=== PATIENT | male | born 1960 | race Caucasian/White ===

== ENCOUNTER 2018-05-21 09:20 | Day surgery (SDC) | payer BC ==
[2018-05-17 13:18] VITALS: BMI 29.8
[2018-05-21 09:56] VITALS: RESP 16; TEMP 97.9
[2018-05-21] MEDS ORDERED: LIDOCAINE 1% 20 ML VIAL (10MG/ML) FOR IV START INTRADERMA ONE (10:02)
[2018-05-21] MEDS ORDERED: LACTATED RINGERS 1,000 ML IV ONE (10:02)
[2018-05-21] MEDS ORDERED: PROPOFOL 10 MG/ML 20 ML VIAL IV ONE (10:44)
--- NOTE | 2018-05-21 11:12 | P.PCN ---
Date of Procedure: 05/21/18 Procedure(s) Performed: procedure: Total colonoscopy. Preoperative diagnosis: Screening for neoplasia, patient has history of polyps. Postoperative diagnosis: Exam within normal limits. Preparation: HalfLytely prep. Sedation: Was provided by anesthesia. Brief clinical history: The patient is a 57-year-old male who is scheduled for this evaluation for screening for neoplasia because of history of polyps. His last exam was in 2012. The patient has no abdominal complaints, bleeding or anemia. Procedure: With the patient on his left lateral decubitus position and after informed consent and adequate sedation, the perianal area was inspected and it did not show any fissures or fistulas. There were no masses felt on digital rectal examination. The Olympus CFQ 160L video colonoscope was used and was inserted in the rectum and advanced in the usual fashion without difficulty to the cecum. The mucosa appeared healthy. No polyps or tumors were seen or any obvious diverticular disease or other pathology. I retroflexed the endoscope in the rectum before the endoscope was withdrawn. The patient tolerated the procedure well. Plan: The patient was reassured. He will follow up with you as planned and I recommended repeat exam in 5 years.
[2018-05-21 11:32] VITALS: BP 116/79; PULSE 71
== END 2018-05-21 11:49 | disposition home or self-care (01) ==
LOC: ORWHC2ENDO 09:20
DX: Z12.11 Encounter for screening for malignant neoplasm of colon (principal); Z86.010 Personal history of colon polyps; K21.9 Gastro-esophageal reflux disease without esophagitis; I10 Essential (primary) hypertension; E78.5 Hyperlipidemia, unspecified; G47.33 Obstructive sleep apnea (adult) (pediatric); F41.9 Anxiety disorder, unspecified; F32.9 Major depressive disorder, single episode, unspecified; Z79.82 Long term (current) use of aspirin; Z79.899 Other long term (current) drug therapy
CPT/HCPCS: J2704; G0105; 45378

== ENCOUNTER 2019-07-19 13:52 | Observation (INO) | payer BC, OTHER ==
[2019-07-19] MEDS ORDERED: SODIUM CHLORIDE 0.9% 500 ML 500 ML IV STA (14:18)
[2019-07-19] MEDS ORDERED: SODIUM CHLORIDE 0.9% 1,000 ML IV STA (14:45)
--- NOTE | 2019-07-19 14:45 | ED ---
General Adult HPI - General Chief complaint: Dizziness Stated complaint: Light headed/Dizziness Time Seen by Provider: 07/19/19 14:10 Source: patient, RN notes reviewed Mode of arrival: wheelchair Limitations: no limitations - History of Present Illness Initial comments: 58-year-old male with a past medical history of GERD, hyperlipidemia, hypertension presents to the emergency department for a chief complaint of lightheadedness. Patient states that he has not felt well for the past 2-3 days. Patient states that he has felt lightheaded and "off." Patient states that he has had a very mild cough and sore throat but his throat is only sore in the morning. He does admit to congestion. Patient states that yesterday he had an episode of acid reflux starting at about 11 PM and lasting for several hours. He describes this as a burning pain in his chest with nausea. States he did vomit once with this. He denies any radiating chest pain. Patient states that this morning he was short of breath which is not normal for him. States he had to stop Every 30 feet or so to catch his breath when he was walking his dog. Patient has no other complaints at this time including chest pain, abdominal pain, nausea or vomiting, headache, or visual changes. - Related Data Home Medications Medication Instructions Recorded Confirmed Sertraline HCl [Zoloft] 200 mg PO DAILY 05/17/18 07/19/19 Atorvastatin [Lipitor] 20 mg PO HS 07/19/19 07/19/19 LORazepam [Ativan] 0.5 mg PO BID PRN 07/19/19 07/19/19 Lisinopril 30 mg PO DAILY 07/19/19 07/19/19 Allergies Allergy/AdvReac Type Severity Reaction Status Date / Time No Known Allergies Allergy Verified 07/19/19 17:40 Review of Systems ROS Statement: Those systems with pertinent positive or pertinent negative responses have been documented in the HPI. ROS Other: All systems not noted in ROS Statement are negative. Past Medical History Past Medical History: GERD/Reflux, Hyperlipidemia, Hypertension, Sleep Apnea/CPAP/BIPAP Additional Past Medical History / Comment(s): no cpap used, History of Any Multi-Drug Resistant Organisms: None Reported Past Surgical History: Hernia Repair Additional Past Surgical History / Comment(s): biopsy on lump on neck, Past Anesthesia/Blood Transfusion Reactions: Motion Sickness Past Psychological History: Anxiety Smoking Status: Never smoker Past Alcohol Use History: Daily Past Drug Use History: None Reported - Past Family History Mother Family Medical History: Cancer General Exam Limitations: no limitations General appearance: alert, in no apparent distress Head exam: Present: atraumatic, normocephalic, normal inspection Eye exam: Present: normal appearance, PERRL, EOMI. Absent: scleral icterus, conjunctival injection, periorbital swelling ENT exam: Present: normal exam, mucous membranes moist Neck exam: Present: normal inspection, full ROM. Absent: tenderness, meningismus, lymphadenopathy Respiratory exam: Present: normal lung sounds bilaterally. Absent: respiratory distress, wheezes, rales, rhonchi, stridor Cardiovascular Exam: Present: regular rate, normal rhythm, normal heart sounds. Absent: systolic murmur, diastolic murmur, rubs, gallop, clicks GI/Abdominal exam: Present: soft, normal bowel sounds. Absent: distended, tenderness, guarding, rebound, rigid Neurological exam: Present: alert Course Vital Signs 07/19/19 07/19/19 07/19/19 14:00 14:28 16:26 Temperature 98.6 F Pulse Rate 112 H 78 Pulse Rate [ 114 H Sitting] Pulse Rate [ 124 H Standing] Pulse Rate [ 102 H Supine] Respiratory 20 16 Rate Blood Pressure 132/77 140/82 Blood Pressure 92/67 [Sitting] Blood Pressure 70/36 [Standing] Blood Pressure 114/74 [Supine] O2 Sat by Pulse 97 98 Oximetry 07/19/19 07/19/19 07/19/19 17:00 18:00 18:34 Temperature Pulse Rate 99 111 H 107 H Pulse Rate [ Sitting] Pulse Rate [ Standing] Pulse Rate [ Supine] Respiratory 16 20 18 Rate Blood Pressure 123/89 133/90 Blood Pressure [Sitting] Blood Pressure [Standing] Blood Pressure [Supine] O2 Sat by Pulse 96 96 Oximetry 07/19/19 22:15 Temperature Pulse Rate 112 H Pulse Rate [ Sitting] Pulse Rate [ Standing] Pulse Rate [ Supine] Respiratory 18 Rate Blood Pressure 123/82 Blood Pressure [Sitting] Blood Pressure [Standing] Blood Pressure [Supine] O2 Sat by Pulse 97 Oximetry - Reevaluation(s) Reevaluation #1: 07/19/19 15:43 D-dimer is elevated. I did speak with CT about creatinine and GFR who said they could do the scan with a decreased dose of contrast. Pt hydrated before and after. EKG Findings - EKG Comments: EKG Findings:: Normal sinus rhythm, ventricular rate 85, NV interval 170, QTC 428, reviewed by Dr Montilla Medical Decision Making - Medical Decision Making 58-year-old male the past medical history of GERD, hyperlipidemia, hypertension presents to the emergency department for a chief lightheadedness third patient has felt lightheaded for several days. Patient has been short of breath for the past day. He did have some GERD-like symptoms yesterday, no other evidence of chest pain. Vitals do show positive orthostatics. CBC unremarkable. CMP does show evidence of dehydration with a creatinine of 1.67. Anion gap of 21 likely secondary to starvation ketosis. Given shortness of breath d-dimer was ordered which was positive. CT demonstrated no evident pulmonary embolism however the root of the aorta is aneurysmal at 4.4 cm proximal descending aorta measures 2.6 cm. Patient noted to be tremoring after some time here in the emergency department. Likely experiencing DTs as he is a daily alcoholic although only reports 3 glasses of wine per day. Patient was given Ativan. Patient will be admitted for possible alcoholic withdrawal, orthostatic hypotension, shortness of breath. Dr. Villarreal accepted this admission. - Lab Data Result diagrams: 07/19/19 14:26 07/19/19 14:26 Lab Results 07/19/19 07/19/19 07/19/19 Range/Units 14:00 14:00 14:00 WBC (3.8-10.6) k/uL RBC (4.30-5.90) m/uL Hgb (13.0-17.5) gm/dL Hct (39.0-53.0) % MCV (80.0-100.0) fL MCH (25.0-35.0) pg MCHC (31.0-37.0) g/dL RDW (11.5-15.5) % Plt Count (150-450) k/uL Neutrophils % % Lymphocytes % % Monocytes % % Eosinophils % % Basophils % % Neutrophils # (1.3-7.7) k/uL Lymphocytes # (1.0-4.8) k/uL Monocytes # (0-1.0) k/uL Eosinophils # (0-0.7) k/uL Basophils # (0-0.2) k/uL PT 9.6 (9.0-12.0) sec INR 0.9 (<1.2) APTT 22.5 (22.0-30.0) sec D-Dimer 2.59 H (<0.60) mg/L FEU Sodium (137-145) mmol/L Potassium (3.5-5.1) mmol/L Chloride (98-107) mmol/L Carbon Dioxide (22-30) mmol/L Anion Gap mmol/L BUN (9-20) mg/dL Creatinine (0.66-1.25) mg/dL Est GFR (CKD-EPI)AfAm (>60 ml/min/1.73 sqM) Est GFR (CKD-EPI)NonAf (>60 ml/min/1.73 sqM) Glucose (74-99) mg/dL Calcium (8.4-10.2) mg/dL Magnesium (1.6-2.3) mg/dL Total Bilirubin (0.2-1.3) mg/dL AST (17-59) U/L ALT (4-49) U/L Alkaline Phosphatase (38-126) U/L Creatine Kinase (55-170) U/L CK-MB (CK-2) (0.0-2.4) ng/mL Troponin I 0.019 (0.000-0.034) ng/mL NT-Pro-B Natriuret Pep 46 pg/mL Total Protein (6.3-8.2) g/dL Albumin (3.5-5.0) g/dL Amylase (30-110) U/L Lipase (23-300) U/L 07/19/19 07/19/19 07/19/19 Range/Units 14:00 14:00 14:26 WBC (3.8-10.6) k/uL RBC (4.30-5.90) m/uL Hgb (13.0-17.5) gm/dL Hct (39.0-53.0) % MCV (80.0-100.0) fL MCH (25.0-35.0) pg MCHC (31.0-37.0) g/dL RDW (11.5-15.5) % Plt Count (150-450) k/uL Neutrophils % % Lymphocytes % % Monocytes % % Eosinophils % % Basophils % % Neutrophils # (1.3-7.7) k/uL Lymphocytes # (1.0-4.8) k/uL Monocytes # (0-1.0) k/uL Eosinophils # (0-0.7) k/uL Basophils # (0-0.2) k/uL PT (9.0-12.0) sec INR (<1.2) APTT (22.0-30.0) sec D-Dimer (<0.60) mg/L FEU Sodium 133 L (137-145) mmol/L Potassium 4.5 (3.5-5.1) mmol/L Chloride 93 L (98-107) mmol/L Carbon Dioxide 19 L (22-30) mmol/L Anion Gap 21 mmol/L BUN 26 H (9-20) mg/dL Creatinine 1.67 H (0.66-1.25) mg/dL Est GFR (CKD-EPI)AfAm 52 (>60 ml/min/1.73 sqM) Est GFR (CKD-EPI)NonAf 45 (>60 ml/min/1.73 sqM) Glucose 88 (74-99) mg/dL Calcium 9.8 (8.4-10.2) mg/dL Magnesium 1.7 (1.6-2.3) mg/dL Total Bilirubin 0.7 (0.2-1.3) mg/dL AST 154 H (17-59) U/L ALT 133 H (4-49) U/L Alkaline Phosphatase 76 (38-126) U/L Creatine Kinase 169 (55-170) U/L CK-MB (CK-2) 1.4 (0.0-2.4) ng/mL Troponin I (0.000-0.034) ng/mL NT-Pro-B Natriuret Pep pg/mL Total Protein 8.3 H (6.3-8.2) g/dL Albumin 5.5 H (3.5-5.0) g/dL Amylase 62 (30-110) U/L Lipase 211 (23-300) U/L // Range/Units 14:26 WBC 7.4 (3.8-10.6) k/uL RBC 4.07 L (4.30-5.90) m/uL Hgb 13.1 (13.0-17.5) gm/dL Hct 38.1 L (39.0-53.0) % MCV 93.6 (80.0-100.0) fL MCH 32.2 (25.0-35.0) pg MCHC 34.3 (31.0-37.0) g/dL RDW 13.0 (11.5-15.5) % Plt Count 268 (150-450) k/uL Neutrophils % 80 % Lymphocytes % 11 % Monocytes % 5 % Eosinophils % 1 % Basophils % 0 % Neutrophils # 5.9 (1.3-7.7) k/uL Lymphocytes # 0.8 L (1.0-4.8) k/uL Monocytes # 0.4 (0-1.0) k/uL Eosinophils # 0.1 (0-0.7) k/uL Basophils # 0.0 (0-0.2) k/uL PT (9.0-12.0) sec INR (<1.2) APTT (22.0-30.0) sec D-Dimer (<0.60) mg/L FEU Sodium (137-145) mmol/L Potassium (3.5-5.1) mmol/L Chloride (98-107) mmol/L Carbon Dioxide (22-30) mmol/L Anion Gap mmol/L BUN (9-20) mg/dL Creatinine (0.66-1.25) mg/dL Est GFR (CKD-EPI)AfAm (>60 ml/min/1.73 sqM) Est GFR (CKD-EPI)NonAf (>60 ml/min/1.73 sqM) Glucose (74-99) mg/dL Calcium (8.4-10.2) mg/dL Magnesium (1.6-2.3) mg/dL Total Bilirubin (0.2-1.3) mg/dL AST (17-59) U/L ALT (4-49) U/L Alkaline Phosphatase (38-126) U/L Creatine Kinase (55-170) U/L CK-MB (CK-2) (0.0-2.4) ng/mL Troponin I (0.000-0.034) ng/mL NT-Pro-B Natriuret Pep pg/mL Total Protein (6.3-8.2) g/dL Albumin (3.5-5.0) g/dL Amylase (30-110) U/L Lipase (23-300) U/L Disposition Clinical Impression: Orthostatic hypotension, Dehydration, Alcohol withdrawal Disposition: ADMITTED IP TO THIS HOSP Condition: Fair Is patient prescribed a controlled substance at d/c from ED?: No Time of Disposition: 23:09
[2019-07-19 14:54] LABS: Basophils % (A) 0 %; Eosinophils # (A) 0.1 k/uL (0-0.7); Eosinophils % (A) 1 %; HCT 38.1 % (39.0-53.0); HGB 13.1 gm/dL (13.0-17.5); Lymphocytes # (A) 0.8 k/uL (1.0-4.8); Lymphocytes % (A) 11 %; MCH 32.2 pg (25.0-35.0); MCHC 34.3 g/dL (31.0-37.0); MCV 93.6 fL (80.0-100.0); Mean Platelet Volume 7.2; Monocytes # (A) 0.4 k/uL (0-1.0); Monocytes % (A) 5 %; Neutrophils # (A) 5.9 k/uL (1.3-7.7); Neutrophils % (A) 80 %; Platelet Count 268 k/uL (150-450); RBC 4.07 m/uL (4.30-5.90); WBC 7.4 k/uL (3.8-10.6)
--- NOTE | 2019-07-19 14:55 | XR ---
EXAMINATION TYPE: XR chest 2V DATE OF EXAM: 07/19/2019 COMPARISON: None HISTORY: Dizziness, sore throat, history of hypertension and chest pain TECHNIQUE: Frontal and lateral views of the chest are obtained. FINDINGS: There are overlying cardiac leads. Thoracic spondylosis is present. Patient is rotated. Mil d anterior wedging midthoracic vertebral bodies likely chronic. There is no focal air space opacity, pleural effusion, or pneumothorax seen. The cardiac silhouette size is within normal limits. The o sseous structures are intact. IMPRESSION: No acute cardiopulmonary process.
[2019-07-19 15:10] LABS: Albumin 5.5 g/dL (3.5-5.0); Calcium 9.8 mg/dL (8.4-10.2); Magnesium 1.7 mg/dL (1.6-2.3); Potassium 4.5 mmol/L (3.5-5.1); Total Bilirubin 0.7 mg/dL (0.2-1.3); Total Protein 8.3 g/dL (6.3-8.2)
[2019-07-19 15:13] LABS: INR 0.9 (<1.2); Partial Thromboplastin Time 22.5 sec (22.0-30.0); Prothrombin Time 9.6 sec (9.0-12.0)
[2019-07-19 15:34] LABS: D-Dimer 2.59 mg/L FEU (<0.60)
--- NOTE | 2019-07-19 16:51 | CT ---
EXAMINATION TYPE: CT chest angio for PE DATE OF EXAM: 07/19/2019 COMPARISON: Chest x-ray same date HISTORY: Shortness of breath and dizziness. CT DLP: 442.9 mGycm Automated exposure control for dose reduction was used. CONTRAST: CT Chest for pulmonary embolism performed with with IV Contrast, patient injected with 79ml mL of Iso jael 370. FINDINGS: LUNGS: The lungs are grossly clear, there is no concerning parenchymal mass or nodule identified. T here is no pleural effusion or pneumothorax seen. The tracheobronchial tree is patent. MEDIASTINUM: There is satisfactory enhancement of the pulmonary artery and its branches, there is no CT evidence for pulmonary embolism. There are no greater than 1 cm hilar or mediastinal lymph nodes. No pericardial effusion is seen. AORTA: Root of the aorta is aneurysmal at 4.4 cm proximal descending aorta measures 2.6 cm OTHER: Thyroid gland is enlarged. Possible calcified nodule injury margin on the left and within the isthmus region. The liver shows low attenuation likely due to hepatic steatosis. IMPRESSION: No evident pulmonary embolism. There is an aortic aneurysm.
[2019-07-19] MEDS ORDERED: NALOXONE 0.4 MG/ML 1 ML VIAL IV PRN (18:06)
[2019-07-19] MEDS ORDERED: LORazepam 2 MG/ML INJ IV STA (18:09)
[2019-07-19] MEDS: DEXTROSE 5%-0.45% NACL 1,000 ML IV SCH (18:21)
[2019-07-19 18:35] VITALS: RESP 18
[2019-07-19] MEDS ORDERED: LORazepam 2 MG/ML INJ IV PRN ×2 (18:43)
[2019-07-19] MEDS ORDERED: THIAMINE 100 MG/ML 2 ML VIAL IM STA (18:43)
[2019-07-19] MEDS: ATORVASTATIN 20 MG TAB PO SCH (22:56)
[2019-07-19] MEDS: LORazepam 2 MG/ML INJ IV PRN (22:56)
[2019-07-20] MEDS: DIAZEPAM 5 MG/ML 2 ML INJ IVP SCH ×2 (00:42→12:17)
[2019-07-20] MEDS: LORazepam 2 MG/ML INJ IV PRN ×2 (04:06→08:54)
[2019-07-20] MEDS: DEXTROSE 5%-0.45% NACL 1,000 ML IV SCH ×2 (05:27→20:21)
[2019-07-20] MEDS: THIAMINE 100 MG TAB PO SCH ×2 (08:27→17:57)
[2019-07-20] MEDS: MULTIVITAMINS, THERA 1 EACH TAB PO SCH (08:28)
[2019-07-20] MEDS: SERTRALINE 100 MG TAB PO SCH (08:28)
--- NOTE | 2019-07-20 08:46 | P.GSCN ---
History of Present Illness Consult date: 07/20/19 Reason for Consult: Root of the aorta is aneurysmal measuring 4.4 cm Requesting physician: Govind Goldberg History of present illness: This is a 58-year-old gentleman who is followed by Dr. Savage on an outpatient basis. He has a past medical history significant for hypertension, hyperlipidemia, sleep apnea, GERD and daily alcohol use with drinking 3 glasses of wine a day. For the last 3 days the patient reports that he has been feeling lethargic, fatigue, having hot flashes, 1 episode of vomiting, episodes of dizziness and shortness of breath with minimal activity. He denies any recent fevers, diarrhea, headache, visual changes, recent trauma or syncope. Due due to shortness of breath he felt he needed to seek medical attention and presented to the emergency department here at [facility]. In the emergency department a chest x-ray was completed which showed no acute cardiopulmonary pro cess. Labs were drawn and showed a WBC count of 7.4, d-dimer 2.59, sodium 133, chloride 93, CO2 19, BUN 26, creatinine 1.67, AST 154, ALT 133. Troponin was within normal limits at 0.019. Subsequently, due to the patient's presenting symptoms and elevation and his d-dimer a CTA of his chest was completed which showed no evidence for pulmonary embolism but did demonstrate his root of the aorta to measure at 4.4 cm. Due to this incidental finding of his aorta a consult was placed to Dr. Mario Lowry from cardiothoracic surgery for further evaluation and treatment recommendations. Review of Systems A 14 point review of systems was negative except as mentioned in the HPI. Past Medical History Past Medical History: GERD/Reflux, Hyperlipidemia, Hypertension, Sleep Apnea/CPAP/BIPAP Additional Past Medical History / Comment(s): no home cpap use. History of Any Multi-Drug Resistant Organisms: None Reported Past Surgical History: Hernia Repair Additional Past Surgical History / Comment(s): biopsy on lump to his left neck Past Anesthesia/Blood Transfusion Reactions: Motion Sickness Past Psychological History: Anxiety Smoking Status: Never smoker Past Alcohol Use History: Daily (drinks at least 3 glasses of wine daily.) Past Drug Use History: None Reported - Past Family History Mother Family Medical History: Cancer (lung) Father Family Medical History: Diabetes Mellitus Additional Family Medical History / Comment(s): history of seizures Medications and Allergies Home Medications Medication Instructions Recorded Confirmed Type Sertraline HCl [Zoloft] 200 mg PO DAILY 05/17/18 07/19/19 History Atorvastatin [Lipitor] 20 mg PO HS 07/19/19 07/19/19 History LORazepam [Ativan] 0.5 mg PO BID PRN 07/19/19 07/19/19 History Lisinopril 30 mg PO DAILY 07/19/19 07/19/19 History Allergies Allergy/AdvReac Type Severity Reaction Status Date / Time No Known Allergies Allergy Verified 07/19/19 17:40 Surgical - Exam Vital Signs Temp Pulse Resp BP Pulse Ox 98.6 F 112 H 20 132/77 97 07/19/19 14:00 07/19/19 14:00 07/19/19 14:00 07/19/19 14:00 07/19/19 14:00 - General well developed, well nourished, no distress, no pain, obese - Eyes PERRL, normal ocular movement - ENT normal pinna, normal nares, normal mucosa, no hearing loss, no congestion - Neck neck is supple, no lymphadenopathy. no masses, no bruits, trachea midline, no venous distension - Respiratory lungs are essentially clear throughout. Respirations are symmetrical and nonlabored. No wheezes, rhonchi or crackles present. - Cardiovascular regular rhythm and rate. S1 and S2 present, negative for S3, gallop or murmur. No edema present. - Abdomen abdomen is soft, nontender and nondistended. Active bowel sounds present all 4 abdominal quadrants. No guarding or rigidity. No organomegaly appreciated. - Genitourinary deferred - Rectum deferred - Integumentary no rash, no growths, no abnormal pigmentation - Neurologic normal coordination, normal sensation - Musculoskeletal normal gait, normal posture - Psychiatric oriented to time, oriented to person, oriented to place, speech is normal, memory intact Results - Labs 07/19/19 14:26 07/19/19 14:26 Abnormal Lab Results - Last 24 Hours (Table) 07/19/19 07/19/19 07/19/19 Range/Units 14:00 14:26 14:26 RBC 4.07 L (4.30-5.90) m/uL Hct 38.1 L (39.0-53.0) % Lymphocytes # 0.8 L (1.0-4.8) k/uL D-Dimer 2.59 H (<0.60) mg/L FEU Sodium 133 L (137-145) mmol/L Chloride 93 L (98-107) mmol/L Carbon Dioxide 19 L (22-30) mmol/L BUN 26 H (9-20) mg/dL Creatinine 1.67 H (0.66-1.25) mg/dL AST 154 H (17-59) U/L ALT 133 H (4-49) U/L Total Protein 8.3 H (6.3-8.2) g/dL Albumin 5.5 H (3.5-5.0) g/dL Diabetes panel 07/19/19 Range/Units 14:26 Sodium 133 L (137-145) mmol/L Potassium 4.5 (3.5-5.1) mmol/L Chloride 93 L (98-107) mmol/L Carbon Dioxide 19 L (22-30) mmol/L BUN 26 H (9-20) mg/dL Creatinine 1.67 H (0.66-1.25) mg/dL Glucose 88 (74-99) mg/dL Calcium 9.8 (8.4-10.2) mg/dL AST 154 H (17-59) U/L ALT 133 H (4-49) U/L Alkaline Phosphatase 76 (38-126) U/L Total Protein 8.3 H (6.3-8.2) g/dL Albumin 5.5 H (3.5-5.0) g/dL Calcium panel 07/19/19 Range/Units 14:26 Calcium 9.8 (8.4-10.2) mg/dL Albumin 5.5 H (3.5-5.0) g/dL Pituitary panel 07/19/19 Range/Units 14:26 Sodium 133 L (137-145) mmol/L Potassium 4.5 (3.5-5.1) mmol/L Chloride 93 L (98-107) mmol/L Carbon Dioxide 19 L (22-30) mmol/L BUN 26 H (9-20) mg/dL Creatinine 1.67 H (0.66-1.25) mg/dL Glucose 88 (74-99) mg/dL Calcium 9.8 (8.4-10.2) mg/dL Adrenal panel 07/19/19 Range/Units 14:26 Sodium 133 L (137-145) mmol/L Potassium 4.5 (3.5-5.1) mmol/L Chloride 93 L (98-107) mmol/L Carbon Dioxide 19 L (22-30) mmol/L BUN 26 H (9-20) mg/dL Creatinine 1.67 H (0.66-1.25) mg/dL Glucose 88 (74-99) mg/dL Calcium 9.8 (8.4-10.2) mg/dL Total Bilirubin 0.7 (0.2-1.3) mg/dL AST 154 H (17-59) U/L ALT 133 H (4-49) U/L Alkaline Phosphatase 76 (38-126) U/L Total Protein 8.3 H (6.3-8.2) g/dL Albumin 5.5 H (3.5-5.0) g/dL - Imaging Chest x-ray: report reviewed, image reviewed Additional studies: computed tomography scan of his chest results reviewed and discussed with Dr. Mario Lowry. Assessment and Plan Assessment: 1. Root of the aorta is aneurysmal at 4.4 cm 2. Shortness of breath 3. History of hypertension 4. History of hyperlipidemia 5. Daily EtOH use Plan: The patient was seen and examined on the fourth floor medical surgical unit. His chart and diagnostics were reviewed. His case was discussed in detail with Dr. Mario Lowry from cardiothoracic surgery. No surgical intervention is warranted at this time. Recommendations for strict blood pressure control. We will obtain a 2-D echocardiogram to evaluate for bicuspid aortic valve. Follow- up on an outpatient basis. Medical management and other comorbidities per primary care service. More recommendations to follow based on patient's clinical course. Thank you for this consult and we will look for following with you in the care of this patient. Time with Patient: Greater than 30
[2019-07-20] MEDS ORDERED: LISINOPRIL 20 MG TAB PO SCH (09:00)
[2019-07-20 13:31] VITALS: BMI 28.5
[2019-07-20] MEDS: DIAZEPAM 5 MG TAB PO SCH ×2 (15:52→23:27)
[2019-07-20] MEDS: METOPROLOL TARTRATE 12.5 MG TAB PO SCH ×2 (15:54→23:27)
--- NOTE | 2019-07-20 18:36 | CT ---
EXAMINATION TYPE: CT brain wo con DATE OF EXAM: 07/20/2019 COMPARISON: None HISTORY: ams CT DLP: 1114.4 mGycm Automated exposure control for dose reduction was used. Ventricles have normal size. There is no mass effect nor midline shift. There is no sign of intracran ial hemorrhage. There is mild cerebral atrophy. Calvarium is intact. IMPRESSION: Negative head CT scan.
[2019-07-20] MEDS: ATORVASTATIN 20 MG TAB PO SCH (20:21)
--- NOTE | 2019-07-20 20:51 | P.HPIM ---
History of Present Illness H&P Date: 07/20/19 Chief Complaint: lightheaded History of present complaint: This is a pleasant 58-year-old patient of Dr. Savage. Chronic stable medical conditions include GERD, hypertension, hyperlipidemia. Patient presented with chest feeling unwell and out of sorts lightheaded. She had gone down to his ex- 's place to get the dog and the dog for a walk. Started feeling more ligh theaded dizzy just unwell. Had a slight scratchy throat. No fever no chills. Appetite is fair no bowel or urine trouble. No change in appetite otherwise. Patient is found to have renal failure in the ER with a creatinine of 1.67. Patient also found to be significantly orthostatic. Admitted for the same. Patient drinks a significant a lot of alcohol. At least a bottle wine a day. Has had more trouble with alcohol in the past and and has attended Alcoholics Anonymous etc. Patient had done done well off the alcohol for a year then relapsed. When I interviewed the patient this morning patient is having signs of symptoms of alcohol withdrawal including perspiration and tremors. Patient does feel a little bit unsteady. Denies any change in vision. Review of systems: GEN.: Tired EYES: None HEENT: None NECK: None RESPIRATORY: Scratchy throat CARDIOVASCULAR: None GASTROINTESTINAL: None GENITOURINARY: None MUSCULOSKELETAL: None LYMPHATICS: None HEMATOLOGICAL: None PSYCHIATRY: None NEUROLOGICAL: [As above, no focal Past medical history to include: GERD, hypertension, hyperlipidemia Social history: Drinks at least a bottle wine a day. Lives alone. . Does not smoke. 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 Physical examination: VITAL SIGNS: 98.6, 120, 20, 132/77 with orthostatics recorded 97% on room air GENERAL: [BMI 28.5, sitting up anxious, clammy palms. EYES: Pupils equal. Conjunctiva normal. HEENT: External appearance of nose and ears normal, oral cavity grossly normal. NECK: JVD not raised; masses not palpable. HEART: First and second heart sounds are normal; no edema. LUNGS: Respiratory rate normal; clear to auscultation. ABDOMEN: Soft, nontender, liver spleen not palpable, no masses palpable. PSYCH: Alert and oriented x3; mood and affect slightly anxiousl. NEUROLOGICAL: Questionable left mouth corner slightly portal the left., Power sensation grossly intact. Tremors. LYMPHATICS: No lymph nodes palpable in the axilla and neck INVESTIGATIONS, reviewed in the clinical context: White count 7.4 hemoglobin 13.1 and potassium 4.5 bicarb 19 bun 26 creatinine 1.67 AST 154 ALT 133 EKG tracing personally reviewed by me-normal sinus rhythm Chest x-ray film personally reviewed by me-lung garcia clear Chest CTA-ascending out" 4.4 cm, negative for PE Assessment: -This is a patient who presents with over 24 hours of feeling dizzy lightheaded out of sorts. Patient is found to have renal failure with creatinine 1.6 patient's very orthostatic. Clinical findings suggestive of acute renal failure, prerenal. Cannot determine a cause for the same. Patient denies any change in his appetite. Or oral intake. -We'll rule out chronic kidney disease. Will check a renal ultrasound and a UA. -Chronic alcohol use and dependence -Alcoholic hepatitis -early alcohol withdrawal syndrome -GERD -Hyperlipidemia -Essential hypertension -Orthostatic hypotension possibly related to volume contraction, cause unknown at this point. 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 Patient is put on IV fluids at 1 50 mL an hour. Recheck BMP in the morning. Renal ultrasound in the UA have been ordered. Care was discussed with the patient questions were answered. Other home medications accordingly. Patient is a very subtle facial asymmetry which may be thought of much significance. To make sure I'm ordering MRI of the brain. Nephrology is c onsulted. Cardiothoracic surgery was consulted for the aortic root. We'll also get a neurology opinion. Past Medical History Past Medical History: GERD/Reflux, Hyperlipidemia, Hypertension, Sleep Apnea/CPAP/BIPAP Additional Past Medical History / Comment(s): no home cpap use. History of Any Multi-Drug Resistant Organisms: None Reported Past Surgical History: Hernia Repair Additional Past Surgical History / Comment(s): biopsy on lump to his left neck Past Anesthesia/Blood Transfusion Reactions: Motion Sickness Past Psychological History: Anxiety Smoking Status: Never smoker Past Alcohol Use History: Daily (drinks at least 3 glasses of wine daily.) Past Drug Use History: None Reported - Past Family History Mother Family Medical History: Cancer (lung) Father Family Medical History: Diabetes Mellitus Additional Family Medical History / Comment(s): history of seizures Medications and Allergies Home Medications Medication Instructions Recorded Confirmed Type Sertraline HCl [Zoloft] 200 mg PO DAILY 05/17/18 07/19/19 History Atorvastatin [Lipitor] 20 mg PO HS 07/19/19 07/19/19 History LORazepam [Ativan] 0.5 mg PO BID PRN 07/19/19 07/19/19 History Lisinopril 30 mg PO DAILY 07/19/19 07/19/19 History Allergies Allergy/AdvReac Type Severity Reaction Status Date / Time No Known Allergies Allergy Verified 07/19/19 17:40 Physical Exam Vitals: Vital Signs Temp Pulse Pulse Pulse Pulse Pulse Pulse 07/20/19 08:48 81 07/20/19 07:00 97.9 F 107 H 07/20/19 01:45 98.6 F 97 07/19/19 22:32 110 H 07/19/19 22:30 98.5 F 111 H 07/19/19 22:15 112 H 07/19/19 18:34 107 H 07/19/19 18:00 111 H 07/19/19 17:00 99 07/19/19 16:26 78 07/19/19 14:28 114 H 124 H 102 H 07/19/19 14:00 98.6 F 112 H Resp BP BP BP BP BP Pulse Ox 07/20/19 08:48 122/78 07/20/19 07:00 18 174/79 98 07/20/19 01:45 18 109/75 97 07/19/19 22:32 07/19/19 22:30 18 116/73 96 07/19/19 22:15 18 123/82 97 07/19/19 18:34 18 133/90 96 07/19/19 18:00 20 07/19/19 17:00 16 123/89 96 07/19/19 16:26 16 140/82 98 07/19/19 14:28 92/67 70/36 114/74 07/19/19 14:00 20 132/77 97 Intake and Output 07/19/19 07/20/19 07/20/19 22:59 06:59 14:59 Other: Voiding Method Toilet Toilet # Voids 1 2 Weight 95.254 kg Results CBC & Chem 7: 07/19/19 14:26 07/19/19 14:26 Labs: Abnormal Lab Results - Last 24 Hours (Table) 07/19/19 07/19/19 07/19/19 Range/Units 14:00 14:26 14:26 RBC 4.07 L (4.30-5.90) m/uL Hct 38.1 L (39.0-53.0) % Lymphocytes # 0.8 L (1.0-4.8) k/uL D-Dimer 2.59 H (<0.60) mg/L FEU Sodium 133 L (137-145) mmol/L Chloride 93 L (98-107) mmol/L Carbon Dioxide 19 L (22-30) mmol/L BUN 26 H (9-20) mg/dL Creatinine 1.67 H (0.66-1.25) mg/dL AST 154 H (17-59) U/L ALT 133 H (4-49) U/L Total Protein 8.3 H (6.3-8.2) g/dL Albumin 5.5 H (3.5-5.0) g/dL Thrombosis Risk Factor Assmnt - Choose All That Apply Any of the Below Risk Factors Present?: No
[2019-07-20] MEDS: ENOXAPARIN 40 MG/0.4 ML SYRINGE SQ SCH (21:06)
[2019-07-20] MEDS: SODIUM CHLORIDE 0.9% 1,000 ML IV SCH (21:06)
[2019-07-20 22:05] LABS: Appearance,Urine Clear (Clear); Bilirubin,Urine Negative (Negative); Blood,Urine Negative (Negative); Color,Urine Light Yellow; Glucose,Urine (UA) Trace (Negative); Ketones,Urine Negative (Negative); Leukocyte Esterase,Urine Negative (Negative); Nitrite,Urine Negative (Negative); Protein,Urine Negative (Negative); Specific Gravity,Urine 1.009 (1.001-1.035); Urobilinogen,Urine <2.0 mg/dL (<2.0)
[2019-07-21] MEDS: SODIUM CHLORIDE 0.9% 1,000 ML IV SCH (05:11)
[2019-07-21 07:39] VITALS: BP 131/85; PULSE 60; TEMP 98.2
[2019-07-21] MEDS: THIAMINE 100 MG TAB PO SCH (07:39)
[2019-07-21] MEDS: DIAZEPAM 5 MG TAB PO SCH (07:39)
[2019-07-21 07:40] LABS: African American GFR (CKD) >90 (>60 ml/min/1.73 sqM); Anion Gap 7 mmol/L; Blood Urea Nitrogen 19 mg/dL (9-20); Calcium 9.3 mg/dL (8.4-10.2); Carbon Dioxide 27 mmol/L (22-30); Chloride 104 mmol/L (98-107); Glucose 92 mg/dL (74-99); Non-African American GFR(CKD) >90 (>60 ml/min/1.73 sqM); Sodium 138 mmol/L (137-145)
[2019-07-21] MEDS: ENOXAPARIN 40 MG/0.4 ML SYRINGE SQ SCH (07:40)
[2019-07-21] MEDS: MULTIVITAMINS, THERA 1 EACH TAB PO SCH (07:40)
[2019-07-21] MEDS: SERTRALINE 100 MG TAB PO SCH (07:40)
[2019-07-21] MEDS: METOPROLOL TARTRATE 12.5 MG TAB PO SCH (07:40)
--- NOTE | 2019-07-21 08:18 | P.PN ---
Subjective Progress Note Date: 07/21/19 Principal diagnosis: Aneurysmal aortic root measuring 4.4 cm. Previous medical history of hypertension, hyperlipidemia, obstructive sleep apnea, daily EtOH use, and GERD. The patient is currently sitting up in bed in no acute distress. Denies any chest pain or shortness of breath. States he feels significantly better than when he came in, however he's only ambulating in his room short distances. No new concerns. Objective - Vital Signs Vital signs: Vital Signs Temp 98.2 F 07/21/19 07:00 Pulse 60 07/21/19 07:00 Resp 18 07/21/19 07:00 BP 131/85 07/21/19 07:00 Pulse Ox 97 07/21/19 07:00 Intake & Output 07/20/19 07/21/19 07/21/19 18:59 06:59 18:59 Intake Total 2039 Balance 2039 Weight 95.254 kg Intake: Intake, IV Titration 1800 Amount Sodium Chloride 0.9% 1, 1800 000 ml @ 150 mls/hr IV . Q6H40M [facility] Rx#:[id number] Oral 240 Other: Voiding Method Toilet Toilet Toilet # Voids 1 1 - Constitutional General appearance: Present: cooperative, no acute distress - Respiratory Details: Lungs sounds diminished bilaterally. Respirations even, nonlabored. Currently on room air with oxygen saturation 98%. - Cardiovascular Details: S1, S2 present. Regular rate and rhythm, sinus rhythm on telemetry. Palpable peripheral pulses bilaterally. No edema present. No calf pain or tenderness noted. - Gastrointestinal Gastrointestinal Comment(s): Abdomen soft, nontender, nondistended. Active bowel sounds present 4 quadrants. Tolerating diet. - Genitourinary Genitourinary Comment(s): Continues to void - Integumentary Integumentary Comment(s): Skin is warm and dry with evidence of good perfusion. - Neurologic Neurologic: Present: CNII-XII intact - Musculoskeletal Musculoskeletal: Present: strength equal bilaterally - Psychiatric Psychiatric: Present: A&O x's 3, appropriate affect, intact judgment & insight - Allied health notes Allied health notes reviewed: nursing - Labs CBC & Chem 7: 07/19/19 14:26 07/21/19 06:50 Labs: Abnormal Lab Results - Last 24 Hours (Table) 07/20/19 Range/Units 21:59 Urine Glucose (UA) Trace H (Negative) - Imaging and Cardiology Chest x-ray: report reviewed, image reviewed CT scan - chest: report reviewed, image reviewed CT Scan - head: report reviewed, image reviewed Assessment and Plan Assessment: 1. Aneurysmal aortic root measuring 4.4 cm 2. Hypertension 3. Hyperlipidemia 4. Obstructive sleep apnea 5. Daily EtOH use Plan: 1. No surgical intervention warranted. 2. Transthoracic echocardiogram ordered yesterday to evaluate for bicuspid aortic valve, await results 3. Strict blood pressure control recommended with beta rober therapy 4. Recommended to decrease EtOH use 5. Medical management of other comorbidities per primary care service 6. More recommendations to follow based on echocardiogram results Time with Patient: Greater than 30
--- NOTE | 2019-07-21 12:22 | US ---
EXAMINATION TYPE: US kidneys/renal and bladder DATE OF EXAM: 07/21/2019 COMPARISON: CT, US CLINICAL HISTORY: assess for CK D. Inpatient for JI. EXAM MEASUREMENTS: Right Kidney: 10.5 x 6.2 x 5.6 cm Left Kidney: 11.2 x 5.0 x 5.1 cm Post Void Residual Volume: not assessed on inpatient Right Kidney: No hydronephrosis or masses seen Left Kidney: inferior cortical cyst seen = 1.3 x 1.4 x 1.4cm thought likely to be simple Bladder: wnl Bilateral Jets seen: yes There is no evidence for hydronephrosis at this point in time. No nephrolithiasis is seen. No maggie s are identified. The urinary bladder is anechoic. Bilateral ureteral jets are seen. Cortical medullary differentiation is maintained. There is no ascites. IMPRESSION:
--- NOTE | 2019-07-21 15:31 | CONS ---
CONSULTATION REASON FOR CONSULT: Renal failure. HISTORY OF PRESENT ILLNESS: Patient is a 58-year-old male who was admitted to the hospital with complaints of lightheadedness and weakness. No history of chest pains. Upon admission, patient was noted to have a creatinine of 1.67. He denies any prior history of renal failure. Patient has been maintained on IV fluids and his creatinine is down to 0.9 mg/dL. Patient was significantly hypotensive and orthostatic on admission with systolic blood pressure down to 70s on standing. At home, patient was on lisinopril prior to admission. He denied use of any nonsteroidal anti-inflammatory agents. No significant urinary symptoms. PAST MEDICAL HISTORY: Hypertension, gastroesophageal reflux disease, hyperlipidemia. SOCIAL HISTORY: Negative for smoking drug abuse. Patient currently has alcohol every day. DOCUMENT MANAGEMENT ANALYST exam grossly intact. MEDICATIONS: Prior to admission included lisinopril, Lipitor, Zoloft. PHYSICAL EXAMINATION: Patient is comfortable, awake, alert, oriented x3, not in any acute distress. Blood pressure this morning 131/85, heart rate of 60 per minute, patient is afebrile. Examination of the heart S1, S2. Examination of the lungs, bilateral breath sounds are heard. Abdomen is soft, non-tender. DOCUMENT MANAGEMENT ANALYST exam is grossly intact. LABS: Show sodium of 138, potassium 4.0, chloride 104, BUN 19, creatinine 0.9 mg/dL. UA showed trace glucose, no protein or blood was seen. ASSESSMENT: 1. Acute kidney injury, prerenal, currently significantly improved and basically resolved. 2. Hypotension from hypovolemia, now resolved. 3. History of hypertension as outpatient. Continue to hold off on DANA inhibitors for now and monitor blood pressure as outpatient. PLAN: Patient is stable for discharge. Monitor blood pressure as outpatient and hold off on DANA inhibitors for now and resume low-dose DANA inhibitors if needed for hypertension if blood pressure remains elevated. UA is completely benign. Thank you for this consultation. MMODL / IJN: [id number] /
--- NOTE | 2019-07-22 00:40 | P.DS ---
Providers Date of admission: 07/19/19 21:43 Attending physician: Tarun Villarreal Consults: 07/19/19 18:09 Consult Physician Routine Consulting Provider: Mario Lowry Consult Reason/Comments: aortic root aneurysm Do you want consulting provider notified?: Yes 07/20/19 20:32 Consult Physician Routine Consulting Provider: Earnest Kaye Consult Reason/Comments: Renal failure Do you want consulting provider notified?: Yes 07/21/19 06:34 Consult Physician Routine Consulting Provider: Aleksandr Greer Consult Reason/Comments: ETOH and Anxiety Do you want consulting provider notified?: Yes Primary care physician: Feliz Savage [facility] Course: Please note this is not a discharge summary as pt was not discharged and she left AMA Diagnoses: -alcohol withdrawal with no delerium tremens -acute renal failure , pre-renal . 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 risks including but not limited to cancer are explained and he stated back to [place] [facility] -GERD -Hyperlipidemia -Essential hypertension -history of anxiety hospital course: This is a pleasant 58-year-old patient of Dr. Savage. Chronic stable medical conditions include GERD, hypertension, hyperlipidemia. Patient presented with feeling unwell and dizzy, lightheaded. he had gone down to his ex-'s place to get the dog and the dog for a walk. Started feeling more lightheaded dizzy just unwell. Had a slight scratchy throat. No fever no chills. Appetite is fair no bowel or urine trouble. No change in appetite otherwise. Patient is found to have renal failure in the ER with a creatinine of 1.67. Patient also found to be significantly orthostatic. pt admitted for iv fluid and alcohol withdrawal, he was started on treatment as per [facility] protocol. pt showed significant improvement, his creatinine is back to WNL at 0.9 his hyponatreamia resolved and Na is back to normal as well at 138, pt has no fever and all vitals are stable and normal. pt this morning when i saw him he was fully awake and oriented to time, place and person, he is aware of his medical condition and why he is in the hospital , he was asking about update in his medical condition which is provided for him including the thyroid enlargement and the aortic aneurysm as above. pt is no focal neurological deficit when i evaluated the pt including but not limited no weakness, no sensation abnormality , no gait abnormality, no blurred vision , no dysarthria, no slurred speech. pt also denies signs or symptoms of depression eg no hopelessness or helplessness. he denies to me any suicidal or homicidal thoughts , " I am not going to do anything stupid" . pt has mild bilateral hand tremor, no sweating , no nausea or vomiting , no chest pain or dyspnea, he is tolerating eating and drinking, pt states he was at alcohol anonymous before and he is not interested in one now. pt did not want to stay in the hospital , also he did not want any benzodiazepine taper upon discharge , he wants to go back to drinking alcohol, and is he wants to quit he will cut down by himself as he stated. pt is counseled against signing leaving AMA, risks including but not limited to stroke, worsening alcohol withdrawal and delerium tremens , seizure, arrhythmia, pneumonia, loss of function or permanent organ damage and/or are explained for the pt and he verbalized understanding but he still wants to sign leaving AMA , i told pt is there anything i can do to stop her from signing AMA and he said "NO" I counseled pt if she changes her mind or if he develops more signs or symptoms then to call 911 and come to emergency room . also i instructed pt to f/u with her pcp as soon as possible. based upon my evaluation pt has capacity to make medical decision and medical team can not hold him against his will and eventually pt did not want to wait to consultants to evaluated him despite extensive counselling and he left after signing leaving AMA; discussed with staff exam prior to leaving AMA Gen.: Patient alert awake and oriented X 3, NOT IN DISTRESS CVS: s1-s2, RRR, no murmur CHEST:bilateral CTA, no wheezing or crepitation Abdomen: Soft, no tenderness, no distention, positive bowel sounds Extremities: No leg edema or induration Neuro: cranial nn are grossly intact, strength 5/5 all extremities , sensation intact. meningeal signs absent. gait: steady at pt level as he states. time : more than 35 min including counselling Patient Condition at Discharge: Fair Plan - Discharge Summary Discharge Rx Participant: No New Discharge Prescriptions: No Action Sertraline HCl [Zoloft] 200 mg PO DAILY LORazepam [Ativan] 0.5 mg PO BID PRN PRN Reason: Anxiety Atorvastatin [Lipitor] 20 mg PO HS Lisinopril 30 mg PO DAILY Discharge Medication List Sertraline HCl [Zoloft] 200 mg PO DAILY 05/17/18 [History] Atorvastatin [Lipitor] 20 mg PO HS 07/19/19 [History] LORazepam [Ativan] 0.5 mg PO BID PRN 07/19/19 [History] Lisinopril 30 mg PO DAILY 07/19/19 [History] Follow up Appointment(s)/Referral(s): Jeffrey Svaage MD [Primary Care Provider] - 1-2 days Discharge Disposition: Left Against Medical Advice
== END 2019-07-21 10:26 | disposition left against medical advice (07) ==
LOC: EC 13:52 → 4SSUR 21:43
PROVIDERS: ADMIT Hospitalist; ATTEND Hospitalist
DX: F10.239 Alcohol dependence with withdrawal, unspecified (principal); N17.9 Acute kidney failure, unspecified; E86.0 Dehydration; R42 Dizziness and giddiness; K70.10 Alcoholic hepatitis without ascites; E04.9 Nontoxic goiter, unspecified; E78.5 Hyperlipidemia, unspecified; E86.1 Hypovolemia; E88.89 Other specified metabolic disorders; G47.33 Obstructive sleep apnea (adult) (pediatric); I10 Essential (primary) hypertension; I71.9 Aortic aneurysm of unspecified site, without rupture; I95.1 Orthostatic hypotension; K21.9 Gastro-esophageal reflux disease without esophagitis; Z79.899 Other long term (current) drug therapy; Z80.1 Family history of malignant neoplasm of trachea, bronchus and lung; Z83.3 Family history of diabetes mellitus; F41.9 Anxiety disorder, unspecified; R06.02 Shortness of breath
CPT/HCPCS: 96361 ×3; 96372 ×3; 96376 ×2; 96374; 99285; 36415; 93005; 85379; 83880; 80053; 80048; 82150; 82550; 82553; 83690; 83735; 84484; 85025; 85610; 85730; 81003; 71046; 76770; 70450; 71275; G0378 ×3; J2060 ×2; J3411; J3360; J1650 ×2; Q9967

== ENCOUNTER → 2019-10-03 | Outpatient (CLI) | payer BC ==
[2019-10-03 17:03] LABS: African American GFR (CKD) 77.9 (60.0-200.0); Albumin/Globulin Ratio 2.5 (1.60-3.17); Anion Gap 10.4 mmol/L (4.00-12.00); BUN/Creat Ratio 15.83 Ratio (12.00-20.00); Calcium 9.9 mg/dL (8.7-10.3); Carbon Dioxide 28.6 mmol/L (21.6-31.8); Chol/HDL Ratio 1.84; Non-African American GFR(CKD) 67.2 (60.0-200.0); Potassium 4.5 mmol/L (3.5-5.5); Total Bilirubin 0.6 mg/dL (0.2-1.2)
== END | disposition home or self-care (01) ==
LOC: LABWHC1 08:27
PROVIDERS: ATTEND Internal Medicine Interventional Cardiology
DX: E78.2 Mixed hyperlipidemia (principal)
CPT/HCPCS: 36415; 80053; 80061

== ENCOUNTER → 2020-01-23 | Outpatient (CLI) | payer BC, OTHER ==
--- NOTE | 2020-01-23 12:24 | ECHOF ---
Referral Reason:[id number] Syncope MEASUREMENTS -------- HEIGHT: 182.9 cm WEIGHT: 92.5 kg BP: IVSd: 1.3 cm (0.6 - 1.1) LVIDd: 4.1 cm (3.9 - 5.3) LVPWd: 1.4 cm (0.6 - 1.1) IVSs: 1.8 cm LVIDs: 2.2 cm LVPWs: 1.8 cm LAESV Index (A-L): 24.53 ml/m Ao Diam: 4.3 cm (2.0 - 3.7) AV Cusp: 2.9 cm (1.5 - 2.6) MV EXCURSION: 10.378 mm (> 18.000) MV EF SLOPE: 82 mm/s (70 - 150) EPSS: 0.5 cm MV E Hussain: 0.76 m/s MV DecT: 140 ms MV A Hussain: 0.70 m/s MV E/A Ratio: 1.09 RAP: 5.00 mmHg RVSP: 31.91 mmHg FINDINGS -------- This was a technically adequate study. The left ventricular size is normal. There is mild concentric left ventricular hypertrophy. Overa ll left ventricular systolic function is normal with, an EF between 60 - 65 %. The diastolic fillin g pattern is normal for the age of the patient 12.15. The right ventricle is normal in size. Normal LA size by volume 22+/-6 ml/m2. The right atrial size is normal. Interatrial and interventricular septum intact. The aortic valve is trileaflet and appears structurally normal. There is no evidence of aortic regu rgitation. There is no evidence of aortic stenosis. No mitral regurgitation. Mild tricuspid regurgitation present. There is no evidence of pulmonary hypertension. The right v entricular systolic pressure, as measured by Doppler, is 31.91mmHg. There is no pulmonic regurgitation present. The aortic root is mildy dilated. IVC Not well visulized. There is no pericardial effusion. CONCLUSIONS -------- 1. This was a technically adequate study. 2. The left ventricular size is normal. 3. There is mild concentric left ventricular hypertrophy. 4. Overall left ventricular systolic function is normal with, an EF between 60 - 65 %. 5. The diastolic filling pattern is normal for the age of the patient 12.15 6. The right ventricle is normal in size. 7. Normal LA size by volume 22+/-6 ml/m2. 8. The right atrial size is normal. 9. Interatrial and interventricular septum intact. 10. The aortic valve is trileaflet and appears structurally normal. 11. There is no evidence of aortic regurgitation. 12. There is no evidence of aortic stenosis. 13. No mitral regurgitation. 14. Mild tricuspid regurgitation present. 15. There is no evidence of pulmonary hypertension. 16. The right ventricular systolic pressure, as measured by Doppler, is 31.91mmHg. 17. There is no pulmonic regurgitation present. 18. The aortic root is mildy dilated. 19. IVC Not well visulized. 20. There is no pericardial effusion. TOLL BRIDGE ATTENDANT: Vanessa Plascencia RDCS
== END | disposition home or self-care (01) ==
LOC: RADECHMAIN 08:21
PROVIDERS: ATTEND Family Medicine
DX: I07.1 Rheumatic tricuspid insufficiency (principal)
CPT/HCPCS: 93306

== ENCOUNTER 2020-12-16 04:37 | Inpatient (IN) | payer BC, OTHER ==
[2020-12-16] MEDS ORDERED: PANTOPRAZOLE 40 MG/10 ML VIAL IVP STA (04:58)
[2020-12-16] MEDS ORDERED: ONDANSETRON 4 MG/2 ML VIAL IVP STA (04:58)
[2020-12-16] MEDS ORDERED: SODIUM CHLORIDE 0.9% 500 ML 500 ML IV STA (04:58)
[2020-12-16] MEDS ORDERED: SODIUM CHLORIDE 0.9% 1,000 ML IV STA ×2 (04:58)
[2020-12-16] MEDS ORDERED: DIAZEPAM 5 MG/ML 2 ML INJ IVP STA (04:58)
--- NOTE | 2020-12-16 04:59 | ED ---
ENT HPI - General Source: patient Mode of arrival: EMS Limitations: no limitations <Jeffrey Montilla - Last Filed: 12/16/20 04:58> <Juan Alberto Ceron - Last Filed: 12/19/20 12:34> - General Chief complaint: ENT Stated complaint: Nosebleed Time Seen by Provider: 12/16/20 04:55 - Related Data Home Medications Medication Instructions Recorded Confirmed Sertraline HCl [Zoloft] 200 mg PO DAILY@1400 05/17/18 12/16/20 Atorvastatin [Lipitor] 20 mg PO HS 07/19/19 12/16/20 LORazepam [Ativan] 0.5 mg PO BID PRN 07/19/19 12/16/20 lisinopriL 20 mg PO DAILY 07/19/19 12/16/20 Aspirin EC [Ecotrin Low Dose] 81 mg PO DAILY 12/16/20 12/16/20 Naltrexone HCl [Revia] 50 mg PO DAILY 12/16/20 12/16/20 busPIRone HCL [Buspar] 7.5 mg PO BID 12/16/20 12/16/20 traZODone HCL [Desyrel] 50 mg PO HS 12/16/20 12/16/20 Allergies Allergy/AdvReac Type Severity Reaction Status Date / Time No Known Allergies Allergy Verified 12/16/20 06:24 Review of Systems ROS Other: All systems not noted in ROS Statement are negative. <Jeffrey Montilla - Last Filed: 12/16/20 04:58> ROS Other: All systems not noted in ROS Statement are negative. <Juan Alberto Ceron - Last Filed: 12/19/20 12:34> ROS Statement: Those systems with pertinent positive or pertinent negative responses have been documented in the HPI. Past Medical History Past Medical History: GERD/Reflux, Hyperlipidemia, Hypertension, Sleep Apnea/CPAP/BIPAP Additional Past Medical History / Comment(s): no home cpap use. History of Any Multi-Drug Resistant Organisms: None Reported Past Surgical History: Hernia Repair Additional Past Surgical History / Comment(s): biopsy on lump to his left neck Past Anesthesia/Blood Transfusion Reactions: Motion Sickness Past Psychological History: Anxiety Past Alcohol Use History: Daily (drinks at least 3 glasses of wine daily.) Past Drug Use History: None Reported - Past Family History Mother Family Medical History: Cancer (lung) Father Family Medical History: Diabetes Mellitus Additional Family Medical History / Comment(s): history of seizures <Jeffrey Montilla - Last Filed: 12/16/20 04:58> General Exam Limitations: no limitations <Jeffrey Montilla - Last Filed: 12/16/20 04:58> Course Vital Signs 12/16/20 12/16/20 12/16/20 04:47 07:03 08:16 Pulse Rate 96 114 H Respiratory 113 H 16 20 Rate Blood Pressure 111/79 102/73 107/84 O2 Sat by Pulse 99 96 97 Oximetry 12/16/20 12/16/20 12/16/20 09:34 11:50 12:27 Pulse Rate 113 H 130 H Respiratory 18 22 Rate Blood Pressure 128/82 130/97 O2 Sat by Pulse 97 94 L 99 Oximetry 12/16/20 12/16/20 12:56 13:10 Pulse Rate 102 H 102 H Respiratory 18 18 Rate Blood Pressure 133/65 133/65 O2 Sat by Pulse 96 96 Oximetry Medical Decision Making - Lab Data Result diagrams: 12/19/20 06:48 12/19/20 06:48 <Juan Alberto Ceron - Last Filed: 12/19/20 12:34> - Medical Decision Making Patient was bleeding profusely from his right naris. He did have a nasal clamp however it was not performing adequate tamponade amount. Rapid Rhino was placed into the right naris with good tamponade. Patient is reevaluated and had progressive bleeding to the left naris and down the posterior throat. Left naris rapid Rhino was placed with adequate control of bleeding.. (Juan Alberto Ceron) - Lab Data Lab Results 12/16/20 12/16/20 12/16/20 Range/Units 05:08 05:08 05:08 WBC 4.8 (3.8-10.6) k/uL RBC 3.32 L (4.30-5.90) m/uL Hgb 12.2 L (13.0-17.5) gm/dL Hct 33.7 L (39.0-53.0) % MCV 101.7 H (80.0-100.0) fL MCH 36.8 H (25.0-35.0) pg MCHC 36.1 (31.0-37.0) g/dL RDW 13.9 (11.5-15.5) % Plt Count 274 (150-450) k/uL MPV 7.3 Neutrophils % 50 % Lymphocytes % 28 % Monocytes % 14 % Eosinophils % 3 % Basophils % 1 % Neutrophils # 2.4 (1.3-7.7) k/uL Lymphocytes # 1.3 (1.0-4.8) k/uL Monocytes # 0.7 (0-1.0) k/uL Eosinophils # 0.1 (0-0.7) k/uL Basophils # 0.0 (0-0.2) k/uL Macrocytosis Slight PT 11.0 (9.0-12.0) sec INR 1.0 (<1.2) APTT 20.8 L (22.0-30.0) sec Sodium 132 L (137-145) mmol/L Potassium 3.2 L (3.5-5.1) mmol/L Chloride 95 L (98-107) mmol/L Carbon Dioxide 22 (22-30) mmol/L Anion Gap 15 mmol/L BUN 21 H (9-20) mg/dL Creatinine 1.99 H (0.66-1.25) mg/dL Est GFR (CKD-EPI)AfAm 42 (>60 ml/min/1.73 sqM) Est GFR (CKD-EPI)NonAf 36 (>60 ml/min/1.73 sqM) Glucose 144 H (74-99) mg/dL Calcium 9.6 (8.4-10.2) mg/dL Phosphorus 2.8 (2.5-4.5) mg/dL Magnesium 1.3 L (1.6-2.3) mg/dL Total Bilirubin 1.1 (0.2-1.3) mg/dL AST 89 H (17-59) U/L ALT 65 H (4-49) U/L Alkaline Phosphatase 82 (38-126) U/L Ammonia (<30) umol/L Troponin I (0.000-0.034) ng/mL Total Protein 6.8 (6.3-8.2) g/dL Albumin 4.4 (3.5-5.0) g/dL Lipase 232 (23-300) U/L Serum Alcohol <10 mg/dL Blood Type Confirm 12/16/20 12/16/20 12/16/20 Range/Units 05:08 05:08 05:08 WBC (3.8-10.6) k/uL RBC (4.30-5.90) m/uL Hgb (13.0-17.5) gm/dL Hct (39.0-53.0) % MCV (80.0-100.0) fL MCH (25.0-35.0) pg MCHC (31.0-37.0) g/dL RDW (11.5-15.5) % Plt Count (150-450) k/uL MPV Neutrophils % % Lymphocytes % % Monocytes % % Eosinophils % % Basophils % % Neutrophils # (1.3-7.7) k/uL Lymphocytes # (1.0-4.8) k/uL Monocytes # (0-1.0) k/uL Eosinophils # (0-0.7) k/uL Basophils # (0-0.2) k/uL Macrocytosis PT (9.0-12.0) sec INR (<1.2) APTT (22.0-30.0) sec Sodium (137-145) mmol/L Potassium (3.5-5.1) mmol/L Chloride (98-107) mmol/L Carbon Dioxide (22-30) mmol/L Anion Gap mmol/L BUN (9-20) mg/dL Creatinine (0.66-1.25) mg/dL Est GFR (CKD-EPI)AfAm (>60 ml/min/1.73 sqM) Est GFR (CKD-EPI)NonAf (>60 ml/min/1.73 sqM) Glucose (74-99) mg/dL Calcium (8.4-10.2) mg/dL Phosphorus (2.5-4.5) mg/dL Magnesium (1.6-2.3) mg/dL Total Bilirubin (0.2-1.3) mg/dL AST (17-59) U/L ALT (4-49) U/L Alkaline Phosphatase (38-126) U/L Ammonia 22 (<30) umol/L Troponin I <0.012 (0.000-0.034) ng/mL Total Protein (6.3-8.2) g/dL Albumin (3.5-5.0) g/dL Lipase (23-300) U/L Serum Alcohol mg/dL Blood Type Confirm A Positive
[2020-12-16] MEDS ORDERED: THIAMINE 100 MG/ML 2 ML VIAL IM STA (05:08)
[2020-12-16 05:33] LABS: Basophils % (A) 1 %; Eosinophils # (A) 0.1 k/uL (0-0.7); Eosinophils % (A) 3 %; HCT 33.7 % (39.0-53.0); HGB 12.2 gm/dL (13.0-17.5); Lymphocytes # (A) 1.3 k/uL (1.0-4.8); Lymphocytes % (A) 28 %; MCH 36.8 pg (25.0-35.0); MCHC 36.1 g/dL (31.0-37.0); MCV 101.7 fL (80.0-100.0); Macrocytosis Slight; Mean Platelet Volume 7.3; Monocytes # (A) 0.7 k/uL (0-1.0); Monocytes % (A) 14 %; Neutrophils # (A) 2.4 k/uL (1.3-7.7); Neutrophils % (A) 50 %; Platelet Count 274 k/uL (150-450); RBC 3.32 m/uL (4.30-5.90); RDW 13.9 % (11.5-15.5); WBC 4.8 k/uL (3.8-10.6)
[2020-12-16 05:48] LABS: ALT 65 U/L (4-49); AST 89 U/L (17-59); African American GFR (CKD) 42 (>60 ml/min/1.73 sqM); Albumin 4.4 g/dL (3.5-5.0); Alcohol <10 mg/dL; Alkaline Phosphatase 82 U/L (38-126); Anion Gap 15 mmol/L; Blood Urea Nitrogen 21 mg/dL (9-20); Calcium 9.6 mg/dL (8.4-10.2); Carbon Dioxide 22 mmol/L (22-30); Chloride 95 mmol/L (98-107); Glucose 144 mg/dL (74-99); Lipase 232 U/L (23-300); Magnesium 1.3 mg/dL (1.6-2.3); Non-African American GFR(CKD) 36 (>60 ml/min/1.73 sqM); Partial Thromboplastin Time 20.8 sec (22.0-30.0); Phosphorus 2.8 mg/dL (2.5-4.5); Potassium 3.2 mmol/L (3.5-5.1); Sodium 132 mmol/L (137-145); Total Bilirubin 1.1 mg/dL (0.2-1.3); Total Protein 6.8 g/dL (6.3-8.2)
[2020-12-16] MEDS ORDERED: NALOXONE 0.4 MG/ML 1 ML VIAL IV PRN (06:08)
[2020-12-16] MEDS ORDERED: cefTRIAXone IN SWFI 1,000 MG/10 ML SYRINGE IVP STA (06:09)
[2020-12-16] MEDS ORDERED: LORazepam 2 MG/ML INJ IV STA (06:14)
--- NOTE | 2020-12-16 06:17 | XR ---
EXAM: XR Chest, 1 View CLINICAL HISTORY: cough TECHNIQUE: Frontal view of the chest. COMPARISON: No relevant prior studies available. FINDINGS: Lungs: Unremarkable. No consolidation. Pleural space: Unremarkable. No pneumothorax. Heart: Unremarkable. No cardiomegaly. Mediastinum: Unremarkable. Bones/joints: Likely healing fractures involving the posterior aspects of the seventh through ninth left ribs. IMPRESSION: 1. Likely healing fractures involving the posterior aspects of the seventh through ninth left ribs. CT of the chest may be obtained for further evaluation, if clinically indicated. 2. No radiographic evidence of acute cardiopulmonary process, allowing for portable technique.
[2020-12-16] MEDS: MAGNESIUM SULFATE-D5W PMX 1 GM in DEXTROSE/WATER 1 100ML.BAG IVPB SCH ×5 (06:21→19:32)
[2020-12-16] MEDS: POTASSIUM CHLORIDE 10 MEQ in WATER FOR INJECTION 1 100ML.BAG IVPB SCH ×5 (06:54→19:32)
[2020-12-16] MEDS: LORazepam 2 MG/ML INJ IV PRN ×5 (08:10→16:39)
[2020-12-16] MEDS: DIAZEPAM 5 MG/ML 2 ML INJ IVP SCH ×3 (08:32→18:52)
--- NOTE | 2020-12-16 09:47 | CT ---
EXAMINATION TYPE: CT brain wo con DATE OF EXAM: 12/16/2020 COMPARISON: 07/20/2019 HISTORY: No known trauma. Nose bleed today. CT DLP: 1306.[address] of the brain was performed. The ventricles, basal cisterns and sulci overlying the cerebral convexities demonstrate mild enlargem ent. There is no evidence for intracranial hemorrhage or sulcal effacement. There is decreased attenuation about the periventricular white matter and deep white matter of both c erebral hemispheres, compatible with chronic small vessel ischemia. Differential diagnosis does inclu de demyelination. No mass effects are seen.No midline shift. Facial bone fractures seen with hemorrhagic content within the right maxillary sinus. See report for CT facial bones If symptoms persist consider MRI. IMPRESSION: 1. Age related atrophic and chronic small vessel ischemic change without acute intracranial process s een at this time. 2.Facial bone fractures seen with hemorrhagic content within the right maxillary sinus. See report fo r CT facial bones
[2020-12-16] MEDS: PANTOPRAZOLE 40 MG/10 ML VIAL IV SCH ×2 (09:50→20:43)
--- NOTE | 2020-12-16 09:54 | CT ---
EXAMINATION TYPE: CT facial bones wo con DATE OF EXAM: 12/16/2020 COMPARISON: None HISTORY: No known trauma. Nose bleed today. CT DLP: 1306.[address] of the facial bones was performed in the axial and coronal planes. Bone and soft tissu e window settings are submitted. There is a nondisplaced fracture at the floor of the right orbit without blowout component. Nondispla vern fractures noted to involve the lateral wall of the right maxillary sinus and posterior wall. No s ignificant displacement seen. Hemorrhagic contents within the right maxillary sinus. No additional fr acture seen with certainty at this time. Soft tissue swelling noted about the nasion and right facial region. The globes are intact. IMPRESSION: 1. MRI contents within the right maxillary sinus with nondisplaced fractures as discussed.
[2020-12-16 11:34] LABS: HCT 27.4 % (39.0-53.0); MCH 36.9 pg (25.0-35.0); MCHC 35.5 g/dL (31.0-37.0); MCV 103.8 fL (80.0-100.0); Macrocytosis Slight; Mean Platelet Volume 7.4; Platelet Count 245 k/uL (150-450); RBC 2.64 m/uL (4.30-5.90); RDW 14.2 % (11.5-15.5); WBC 6.1 k/uL (3.8-10.6)
[2020-12-16 11:38] LABS: HGB 9.7 gm/dL (13.0-17.5)
[2020-12-16 11:50] LABS: INR 1.1 (<1.2); Partial Thromboplastin Time 22.1 sec (22.0-30.0); Prothrombin Time 11.2 sec (9.0-12.0)
--- NOTE | 2020-12-16 14:51 | P.HPIM ---
<Daniel Deluca - Last Filed: 12/16/20 14:16> History of Present Illness H&P Date: 12/16/20 History of presenting illness: Patient is a 59-year-old male with a past medical history of anxiety and EtOH dependence/abuse. Patient presented to the emergency department with a chief c omplaint of bleeding from nose. Patient reports he awoke in his bed and noticed that his nose was bleeding, patient states he made multiple attempts to stop the bleeding but was unsuccessful so he came to the emergency department. Patient denies any known injuries or falls. Patient does admit to EtOH use last night as well as long-standing history of alcohol use/abuse with difficult detoxes. P atient would not be specific with amount he drinks daily. Patient denies history of intubation from detox. In ED patient had a Rhino Rocket placed in right nares, was given 1 dose of Rocephin, and lab work was completed. CBC revealed stable hemoglobin of 12.2. BMP revealed mild hyponatremia with sodium of 132, hypokalemia with potassium of 3.2, and hypomagnesemia with magnesium of 1.3. EtOH <10. Patient admitted under our services at this time and consultation to be placed to ENT. Upon assessment and bedside, Rhino Rocket in place. Patient denies having headache, lightheadedness, dizziness, cough or congestion, hemoptysis, hematemesis, chest pain, palpitations, shortness of breath, abdominal pain, nausea, vomiting, or experiencing any numbness/tingling/weakness in his extremities. Review of systems: Pertinent positives and negatives as discussed in HPI, a complete review of systems was performed and all other systems are negative. Physical exam: General: non toxic, no distress, appears at stated age Derm: warm, dry. Large bruise to left shoulder multiple bruises in different stages of healing to bilateral lower extremities. Head: atraumatic, normocephalic, symmetric Eyes: EOMI, no lid lag, anicteric sclera Mouth: no lip lesion, mucus membranes moist. Rhino Rocket in place to right nares. Cardiovascular: S1S2 reg, no murmur, positive posterior tibial pulse bilateral, Lungs: Respirations even, regular, and unlabored on room air. Lungs clear to auscultation bilaterally. No wheezes, rhonchi, or rales noted. No accessory muscle use. Abdominal: soft, nontender to palpation, no guarding, no appreciable organomegaly Ext: no gross muscle atrophy, no edema, no contractures Neuro: CN II-XI grossly intact, no focal neuro deficits. Patient is very tremulous with significant tremors to bilateral upper and lower extremities. Psych: Alert, oriented, appropriate affect Plan of care: Epistaxis -Rhino Rocket in place -Hemoglobin 12.2, will trend every 6 hours. -IV antibiotic: Unasyn 1.5 g every 8 hours -Order placed for CT facial bones without contrast which revealed nondisplaced fractures at the floor of the right orbit without blowout component. Nondisplaced fractures noted to involve the lateral wall of the right maxillary sinus and posterior wall. No significant displacement noted. -ENT consulted, Dr. Morales. -Aspiration precautions in place. Strict NPO until cleared by ENT. -Symptomatic care and pain management. EtOH withdrawal -CIWA protocol in place with symptom triggered medication management with Ativan. -Scheduled Valium 5 mg IVP every 6 hours. -Thiamine 100 mg twice daily. -Seizure precautions, aspiration precautions, and fall precautions in place. -CT head negative for acute intracranial process showing age-related atrophic and chronic small vessel ischemic changes. -Close monitoring of electrolyte levels, will replace as needed. Hypokalemia -Potassium 3.2, replaced. -Will continue to monitor with repeat a.m. labs. Hypomagnesemia -Magnesium 1.3, replaced -We will continue to monitor with repeat a.m. labs. CODE STATUS: Full code DVT prophylaxis: SCDs Discussed with: patient and RN Anticipated discharge date: clinical course to determine Anticipated discharge place: home versus inpatient drug rehabilitation facility if patient agreeable A total of 45 minutes was spent on the care of this complex patient more than 50% of the time was spent in counseling and care coordination. Past Medical History Past Medical History: GERD/Reflux, Hyperlipidemia, Hypertension, Sleep Apnea/CPAP/BIPAP Additional Past Medical History / Comment(s): no home cpap use. History of Any Multi-Drug Resistant Organisms: None Reported Past Surgical History: Hernia Repair Additional Past Surgical History / Comment(s): biopsy on lump to his left neck Past Anesthesia/Blood Transfusion Reactions: Motion Sickness Past Psychological History: Anxiety Past Alcohol Use History: Daily (drinks at least 3 glasses of wine daily.) Past Drug Use History: None Reported - Past Family History Mother Family Medical History: Cancer (lung) Father Family Medical History: Diabetes Mellitus Additional Family Medical History / Comment(s): history of seizures Medications and Allergies Home Medications Medication Instructions Recorded Confirmed Type Sertraline HCl [Zoloft] 200 mg PO DAILY@1400 05/17/18 12/16/20 History Atorvastatin [Lipitor] 20 mg PO HS 07/19/19 12/16/20 History LORazepam [Ativan] 0.5 mg PO BID PRN 07/19/19 12/16/20 History lisinopriL 20 mg PO DAILY 07/19/19 12/16/20 History Aspirin EC [Ecotrin Low Dose] 81 mg PO DAILY 12/16/20 12/16/20 History Naltrexone HCl [Revia] 50 mg PO DAILY 12/16/20 12/16/20 History busPIRone HCL [Buspar] 7.5 mg PO BID 12/16/20 12/16/20 History traZODone HCL [Desyrel] 50 mg PO HS 12/16/20 12/16/20 History Allergies Allergy/AdvReac Type Severity Reaction Status Date / Time No Known Allergies Allergy Verified 12/16/20 06:24 Physical Exam Vitals: Vital Signs Pulse Resp BP Pulse Ox 12/16/20 08:16 114 H 20 107/84 97 12/16/20 07:03 96 16 102/73 96 12/16/20 04:47 113 H 111/79 99 Intake and Output 12/15/20 12/16/20 12/16/20 22:59 06:59 14:59 Other: Weight 90.718 kg Results CBC & Chem 7: 12/16/20 10:41 12/16/20 05:08 Labs: Abnormal Lab Results - Last 24 Hours (Table) 12/16/20 12/16/20 12/16/20 Range/Units 05:08 05:08 05:08 RBC 3.32 L (4.30-5.90) m/uL Hgb 12.2 L (13.0-17.5) gm/dL Hct 33.7 L (39.0-53.0) % MCV 101.7 H (80.0-100.0) fL MCH 36.8 H (25.0-35.0) pg APTT 20.8 L (22.0-30.0) sec Sodium 132 L (137-145) mmol/L Potassium 3.2 L (3.5-5.1) mmol/L Chloride 95 L (98-107) mmol/L BUN 21 H (9-20) mg/dL Creatinine 1.99 H (0.66-1.25) mg/dL Glucose 144 H (74-99) mg/dL Magnesium 1.3 L (1.6-2.3) mg/dL AST 89 H (17-59) U/L ALT 65 H (4-49) U/L <Michelle Alvarenga - Last Filed: 12/16/20 18:53> History of Present Illness Patient seen and examined independently. Patient was also seen by Daniel Deluca NP and case was discussed. I am in agreement with subjective, physical exam, assessment and plan as written above and amended below. General: Ill appearing, moderate distress, disheveled appears at stated age, anterior chest and hands and legs covered with blood Derm: warm, dry Head: atraumatic, normocephalic, symmetric Eyes: EOMI, no lid lag, anicteric sclera Mouth: no lip lesion, mucus membranes moist Cardiovascular: S1 and S2 tachycardic, no murmur, positive posterior tibial pulse bilateral, Lungs: CTA bilateral, no rhonchi, no rales , no accessory muscle use Abdominal: soft, nontender to palpation, no guarding, no appreciable organomegaly Ext: no gross muscle atrophy, no edema, no contractures Neuro: CN II-XI grossly intact, tremors, fidgeting, poor attention span Psych: Alert, oriented, appropriate affect Patient seen multiple times throughout the day. He is having significant nasal bleeding. My first assessment was at approximately 10 AM. The ER placed an additional Rhino Rocket into the left naris. He was found to have blood going down his posterior pharynx. CT facial bones was reviewed showing 2 nondisplaced fractures. I called Dr. Morales and asked him to come in and evaluate the patient. He informed me that he will be in tomorrow to see the patient but is unavailable to see the patient today. Later in the afternoon and patient was again assessed. He was found to have a Rhino Rocket saturated with blood, he continued to have blood dripping from the right and left naris, he also continued to have bright red blood down the posterior pharynx. He denied any chest pain, shortness of breath, lightheadedness, dizziness. His hemoglobin had dropped approximately 4 g and he was ordered 1 unit of packed red blood cells as well as a dose of DDAVP secondary to being on aspirin and likely having platelet dysfunction secondary to alcohol use. We will continue to monitor. Repeat CBC at midnight and 6 AM. - Unsayn ordered with Rhink Rocket in place DX: Hemorrhagic material within the right maxillary sinus, nondisplaced fracture at the floor of the right orbit without blowout component, nondisplaced fracture the lateral wall of the right maxillary sinus and posterior wall, soft tissue swelling Physical Exam Osteopathic Statement: *. No significant issues noted on an osteopathic structural exam other than those noted in the History and Physical/Consult. Vitals: Vital Signs Pulse Resp BP Pulse Ox 12/16/20 13:10 102 H 18 133/65 96 12/16/20 12:56 102 H 18 133/65 96 12/16/20 12:27 99 12/16/20 11:50 130 H 22 130/97 94 L 12/16/20 09:34 113 H 18 128/82 97 12/16/20 08:16 114 H 20 107/84 97 12/16/20 07:03 96 16 102/73 96 12/16/20 04:47 113 H 111/79 99 Intake and Output 12/16/20 12/16/20 12/16/20 06:59 14:59 22:59 Other: Weight 90.718 kg 90.718 kg Results CBC & Chem 7: 12/16/20 14:55 12/16/20 05:08 Labs: Abnormal Lab Results - Last 24 Hours (Table) 12/16/20 12/16/20 12/16/20 Range/Units 05:08 05:08 05:08 RBC 3.32 L (4.30-5.90) m/uL Hgb 12.2 L (13.0-17.5) gm/dL Hct 33.7 L (39.0-53.0) % MCV 101.7 H (80.0-100.0) fL MCH 36.8 H (25.0-35.0) pg Lymphocytes # (1.0-4.8) k/uL APTT 20.8 L (22.0-30.0) sec Sodium 132 L (137-145) mmol/L Potassium 3.2 L (3.5-5.1) mmol/L Chloride 95 L (98-107) mmol/L BUN 21 H (9-20) mg/dL Creatinine 1.99 H (0.66-1.25) mg/dL Glucose 144 H (74-99) mg/dL Magnesium 1.3 L (1.6-2.3) mg/dL AST 89 H (17-59) U/L ALT 65 H (4-49) U/L Crossmatch 12/16/20 12/16/20 12/16/20 Range/Units 10:41 14:55 14:55 RBC 2.64 L 2.37 L (4.30-5.90) m/uL Hgb 9.7 L D 8.5 L (13.0-17.5) gm/dL Hct 27.4 L 25.2 L (39.0-53.0) % MCV 103.8 H 106.6 H (80.0-100.0) fL MCH 36.9 H 35.8 H (25.0-35.0) pg Lymphocytes # 0.5 L (1.0-4.8) k/uL APTT (22.0-30.0) sec Sodium (137-145) mmol/L Potassium (3.5-5.1) mmol/L Chloride (98-107) mmol/L BUN (9-20) mg/dL Creatinine (0.66-1.25) mg/dL Glucose (74-99) mg/dL Magnesium (1.6-2.3) mg/dL AST (17-59) U/L ALT (4-49) U/L Crossmatch See Detail
[2020-12-16 15:30] LABS: Basophils % (A) 1 %; Eosinophils # (A) 0.1 k/uL (0-0.7); Eosinophils % (A) 1 %; HCT 25.2 % (39.0-53.0); HGB 8.5 gm/dL (13.0-17.5); Lymphocytes # (A) 0.5 k/uL (1.0-4.8); Lymphocytes % (A) 12 %; MCH 35.8 pg (25.0-35.0); MCHC 33.5 g/dL (31.0-37.0); MCV 106.6 fL (80.0-100.0); Macrocytosis Moderate; Mean Platelet Volume 7.4; Monocytes # (A) 0.5 k/uL (0-1.0); Monocytes % (A) 11 %; Neutrophils # (A) 3.2 k/uL (1.3-7.7); Neutrophils % (A) 72 %; Platelet Count 199 k/uL (150-450); RBC 2.37 m/uL (4.30-5.90); RDW 14.2 % (11.5-15.5); WBC 4.4 k/uL (3.8-10.6)
[2020-12-16] MEDS ORDERED: DESMOPRESSIN ACETATE 25 MCG in SODIUM CHLORIDE 0.9% 50 ML IVPB ONE (16:45)
[2020-12-16] MEDS: AMPICILLIN-SULBACTAM 1.5 GM in SODIUM CHLORIDE 0.9% 50 ML IVPB SCH (18:23)
[2020-12-16] MEDS: THIAMINE 100 MG TAB PO SCH (18:51)
[2020-12-16] MEDS: ATORVASTATIN 20 MG TAB PO SCH (20:43)
[2020-12-16] MEDS: busPIRone HCl 5 MG TAB PO SCH (20:43)
[2020-12-16] MEDS: traZODone HCL 50 MG TAB PO SCH (20:43)
[2020-12-17 00:59] LABS: Urine Alcohol Negative (Negative); Urine Barbiturate Negative (Negative); Urine Cocaine Negative (Negative); Urine Methadone Negative (Negative); Urine Opiates Negative (Negative); Urine Phencyclidine Negative (Negative)
[2020-12-17 01:43] LABS: Anisocytosis Slight; HCT 25.2 % (39.0-53.0); HGB 8.7 gm/dL (13.0-17.5); MCHC 34.4 g/dL (31.0-37.0); Macrocytosis Slight; Mean Platelet Volume 7.8; Platelet Count 212 k/uL (150-450); RBC 2.55 m/uL (4.30-5.90); RDW 17.9 % (11.5-15.5); WBC 6.6 k/uL (3.8-10.6)
[2020-12-17 01:51] LABS: MCV 98.9 fL (80.0-100.0)
[2020-12-17] MEDS: LORazepam 2 MG/ML INJ IV PRN ×6 (01:53→22:29)
[2020-12-17] MEDS: DIAZEPAM 5 MG/ML 2 ML INJ IVP SCH ×4 (06:30→18:42)
[2020-12-17] MEDS ORDERED: LORazepam 2 MG/ML INJ IV STA ×3 (07:59→11:39)
[2020-12-17] MEDS: chlordiazePOXIDE 25 MG CAP PO SCH ×3 (08:11→21:30)
[2020-12-17] MEDS: AMPICILLIN-SULBACTAM 1.5 GM in SODIUM CHLORIDE 0.9% 50 ML IVPB SCH ×4 (08:20→18:42)
[2020-12-17 08:31] LABS: Anisocytosis Slight; Basophils % (A) 1 %; Eosinophils # (A) 0.1 k/uL (0-0.7); Eosinophils % (A) 1 %; HCT 24.2 % (39.0-53.0); HGB 8.5 gm/dL (13.0-17.5); Lymphocytes # (A) 0.8 k/uL (1.0-4.8); Lymphocytes % (A) 13 %; MCH 34.6 pg (25.0-35.0); MCV 98.9 fL (80.0-100.0); Macrocytosis Slight; Mean Platelet Volume 7.2; Monocytes # (A) 0.8 k/uL (0-1.0); Monocytes % (A) 13 %; Neutrophils # (A) 4.4 k/uL (1.3-7.7); Neutrophils % (A) 70 %; Platelet Count 188 k/uL (150-450); RBC 2.45 m/uL (4.30-5.90); WBC 6.2 k/uL (3.8-10.6)
[2020-12-17 08:45] LABS: Albumin 3.9 g/dL (3.5-5.0); Calcium 8.7 mg/dL (8.4-10.2); Magnesium 1.9 mg/dL (1.6-2.3); Phosphorus 2.9 mg/dL (2.5-4.5); Total Bilirubin 0.8 mg/dL (0.2-1.3)
[2020-12-17] MEDS: THIAMINE 100 MG TAB PO SCH ×2 (09:04→10:22)
--- NOTE | 2020-12-17 09:29 | XR ---
AP pelvis HISTORY: Bruising on left hip Single frontal view the pelvis, no comparisons Bone mineralization, joint spaces and alignment are maintained. Probable phleboliths within the pelvi s. Degenerative disc changes are present in the visualized spine. IMPRESSION: No fracture or dislocation.
--- NOTE | 2020-12-17 09:52 | P.PN ---
<Daniel Deluca - Last Filed: 12/17/20 09:42> Subjective Progress Note Date: 12/17/20 Hospital course: Patient is a 59-year-old male with a past medical history of anxiety and EtOH dependence/abuse. Patient presented to the emergency department with a chief complaint of bleeding from nose. Patient reports he awoke in his bed and noticed that his nose was bleeding, patient states he made multiple attempts to stop the bleeding but was unsuccessful so he came to the emergency department. Patient denies any known injuries or falls. Patient does admit to EtOH use last night as well as long-standing history of alcohol use/abuse with difficult detoxes. Patient would not be specific with amount he drinks daily. Patient denies history of intubation from detox. In ED patient had a Rhino Rocket placed in right nares, was given 1 dose of Rocephin, and lab work was completed. CBC revealed stable hemoglobin of 12.2. BMP revealed mild hyponatremia with sodium of 132, hypokalemia with potassium of 3.2, and hypomagnesemia with magnesium of 1.3. EtOH <10. Patient admitted under our services at this time and consultation to ENT. Physical exam: Upon examination at bedside this morning, patient continues to be actively withd rawing. He is confused with tremors, tachycardia, hypertension, and diaphoresis. CIWA 18 after medication per alcohol withdrawal protocol. An additional dose of 3 mg Ativan IVP given at this time and patient started on Librium 100 mg 3 times a day. Rhino Rocket remains in place to bilateral na ris. Rhino Rocket are saturated with blood and continue to see a small amount of noted bleeding. Patient did have nearly 4 point drop in hemoglobin with initial hemoglobin of 12.2 dropping down to 8.5, patient received 1 unit PRBCs with posttransfusion hemoglobin of 8.7 and morning hemoglobin stable at 8.5. Will repeat CBC at noon. Dr. Morales, ENT was notified of continued bleeding and states will be and to assess patient today. Patient did have noted swelling to left hip compared to yesterday in order placed for x-ray pelvis which was negative for fracture or dislocation. General: non toxic, no distress, appears at stated age Derm: warm, dry. Large bruise to left shoulder multiple bruises in different stages of healing to bilateral lower extremities and left hip. Noted mild swelling to left hip today compared to yesterday, x-ray being completed. Head: atraumatic, normocephalic, symmetric Eyes: EOMI, no lid lag, anicteric sclera Mouth: no lip lesion, mucus membranes moist. Rhino Rocket in place to right and left nares, saturated with blood. Dr. Morales ENT notified. airway remains patent at this time with aspiration precautions in place. Cardiovascular: S1S2 reg, no murmur, positive posterior tibial pulse bilateral, Lungs: Respirations even, regular, and unlabored on room air. Lungs clear to auscultation bilaterally. No wheezes, rhonchi, or rales noted. No accessory muscle use. Abdominal: soft, nontender to palpation, no guarding, no appreciable organomegaly Ext: no gross muscle atrophy, no edema, no contractures Neuro: CN II-XI grossly intact, no focal neuro deficits. Patient is very tremulous with significant tremors to bilateral upper and lower extremities. Psych: Alert confused this morning going through active withdrawal , appropriate affect Plan of care: Epistaxis -Rhino Rocket in place to bilateral naris -Hemoglobin 8.5 will repeat at 12 noon. -IV antibiotic: Unasyn 1.5 g every 8 hours -CT facial bones without contrast which revealed nondisplaced fractures at the f abdiel of the right orbit without blowout component. Nondisplaced fractures noted to involve the lateral wall of the right maxillary sinus and posterior wall. No significant displacement noted. -ENT consulted, Dr. Morales. -Aspiration precautions in place. Strict NPO until cleared by ENT. -Symptomatic care and pain management. EtOH withdrawal -CIWA protocol in place with symptom triggered medication management with Ativan. -Scheduled Valium 5 mg IVP every 6 hours. -Milligram 100 mg 3 times a day -Thiamine 100 mg twice daily. -Seizure precautions, aspiration precautions, and fall precautions in place. -CT head negative for acute intracranial process showing age-related atrophic and chronic small vessel ischemic changes. -Close monitoring of electrolyte levels, will replace as needed. Hypokalemia, resolved Hypomagnesemia, resolved CODE STATUS: Full code DVT prophylaxis: SCDs Discussed with: patient and RN Anticipated discharge date: clinical course to determine Anticipated discharge place: home versus inpatient drug rehabilitation facility if patient agreeable A total of 45 minutes was spent on the care of this complex patient more than 50% of the time was spent in counseling and care coordination. Objective - Vital Signs Vital signs: Vital Signs Temp 97.6 F 12/17/20 07:30 Pulse 93 12/17/20 07:30 Resp 24 12/17/20 07:30 BP 135/63 12/17/20 07:30 Pulse Ox 95 12/17/20 07:30 Intake & Output 12/16/20 12/17/20 12/17/20 18:59 06:59 18:59 Intake Total 310 40 Output Total 425 Balance -115 40 Weight 90.718 kg 92 kg Intake: IV 40 Invasive Line 2 40 Blood Product 310 Rc As-1 Unit 310 [id number] Output: Urine 425 Other: Voiding Method Urinal Urinal # Voids 2 - Labs CBC & Chem 7: 12/17/20 07:57 12/17/20 07:57 Labs: Abnormal Lab Results - Last 24 Hours (Table) 12/16/20 12/16/20 12/16/20 Range/Units 10:41 13:30 14:55 RBC 2.64 L 2.37 L (4.30-5.90) m/uL Hgb 9.7 L D 8.5 L (13.0-17.5) gm/dL Hct 27.4 L 25.2 L (39.0-53.0) % MCV 103.8 H 106.6 H (80.0-100.0) fL MCH 36.9 H 35.8 H (25.0-35.0) pg RDW (11.5-15.5) % Lymphocytes # 0.5 L (1.0-4.8) k/uL U Benzodiazepines Scrn Positive A (Negative) ng/mL Crossmatch 12/16/20 12/17/20 Range/Units 14:55 01:15 RBC 2.55 L (4.30-5.90) m/uL Hgb 8.7 L (13.0-17.5) gm/dL Hct 25.2 L (39.0-53.0) % MCV (80.0-100.0) fL MCH (25.0-35.0) pg RDW 17.9 H (11.5-15.5) % Lymphocytes # (1.0-4.8) k/uL U Benzodiazepines Scrn (Negative) ng/mL Crossmatch See Detail <Sin Maurer - Last Filed: 12/17/20 11:33> Objective - Vital Signs Vital signs: Vital Signs Temp 97.6 F 12/17/20 07:30 Pulse 98 12/17/20 08:29 Resp 20 12/17/20 08:29 BP 142/75 12/17/20 08:29 Pulse Ox 98 12/17/20 08:29 Intake & Output 12/16/20 12/17/20 12/17/20 18:59 06:59 18:59 Intake Total 310 40 Output Total 425 Balance -115 40 Weight 90.718 kg 92 kg Intake: IV 40 Invasive Line 2 40 Blood Product 310 Rc As-1 Unit 310 [id number] Output: Urine 425 Other: Voiding Method Urinal Urinal # Voids 2 0 - Labs CBC & Chem 7: 12/17/20 07:57 12/17/20 07:57 Labs: Abnormal Lab Results - Last 24 Hours (Table) 12/16/20 12/16/20 12/16/20 Range/Units 10:41 13:30 14:55 RBC 2.64 L 2.37 L (4.30-5.90) m/uL Hgb 9.7 L D 8.5 L (13.0-17.5) gm/dL Hct 27.4 L 25.2 L (39.0-53.0) % MCV 103.8 H 106.6 H (80.0-100.0) fL MCH 36.9 H 35.8 H (25.0-35.0) pg RDW (11.5-15.5) % Lymphocytes # 0.5 L (1.0-4.8) k/uL Sodium (137-145) mmol/L BUN (9-20) mg/dL ALT (4-49) U/L Total Protein (6.3-8.2) g/dL U Benzodiazepines Scrn Positive A (Negative) ng/mL Crossmatch 12/16/20 12/17/20 12/17/20 Range/Units 14:55 01:15 07:57 RBC 2.55 L (4.30-5.90) m/uL Hgb 8.7 L (13.0-17.5) gm/dL Hct 25.2 L (39.0-53.0) % MCV (80.0-100.0) fL MCH (25.0-35.0) pg RDW 17.9 H (11.5-15.5) % Lymphocytes # (1.0-4.8) k/uL Sodium 134 L (137-145) mmol/L BUN 43 H (9-20) mg/dL ALT 54 H (4-49) U/L Total Protein 6.0 L (6.3-8.2) g/dL U Benzodiazepines Scrn (Negative) ng/mL Crossmatch See Detail 12/17/20 Range/Units 07:57 RBC 2.45 L (4.30-5.90) m/uL Hgb 8.5 L (13.0-17.5) gm/dL Hct 24.2 L (39.0-53.0) % MCV (80.0-100.0) fL MCH (25.0-35.0) pg RDW 18.0 H (11.5-15.5) % Lymphocytes # 0.8 L (1.0-4.8) k/uL Sodium (137-145) mmol/L BUN (9-20) mg/dL ALT (4-49) U/L Total Protein (6.3-8.2) g/dL U Benzodiazepines Scrn (Negative) ng/mL Crossmatch Assessment and Plan Assessment: Patient seen and evaluated by DOMINIQUE, the original author of this note. I am in agreement with the subjective, physical exam, and assessment and plan as documented with no changes
[2020-12-17] MEDS: PANTOPRAZOLE 40 MG/10 ML VIAL IV SCH ×2 (10:22→22:29)
[2020-12-17] MEDS: lisinopriL 20 MG TAB PO SCH (10:22)
[2020-12-17] MEDS: busPIRone HCl 5 MG TAB PO SCH ×2 (10:22→21:30)
[2020-12-17] MEDS: FOLIC ACID 1 MG TAB PO SCH (10:22)
[2020-12-17] MEDS ORDERED: ZIPRASIDONE 20 MG VIAL IM STA (11:16)
[2020-12-17] MEDS ORDERED: PHENobarbital SODIUM 130 MG/ML 1 ML VIAL IV ONE (11:38)
[2020-12-17] MEDS ORDERED: diphenhydrAMINE 50 MG/ML 1 ML VIAL IVP STA (11:39)
[2020-12-17 11:59] LABS: Anisocytosis Slight; HCT 26.6 % (39.0-53.0); HGB 8.5 gm/dL (13.0-17.5); MCHC 31.9 g/dL (31.0-37.0); MCV 100.4 fL (80.0-100.0); Macrocytosis Slight; Mean Platelet Volume 8.2; Platelet Count 255 k/uL (150-450); RBC 2.65 m/uL (4.30-5.90); RDW 18.6 % (11.5-15.5); WBC 8.3 k/uL (3.8-10.6)
[2020-12-17 12:02] LABS: Glucose,Whole Blood 156 mg/dL (75-99)
--- NOTE | 2020-12-17 12:37 | CDI ---
Documentation Clarification Form Date: 12/17/2020 12:15:10 PM From: Bushra Mills RN CCDS Admit Date: 12/16/2020 06:08:00 AM Patient Name: Zach Santos Visit Number: [id number] Discharge Date: ATTENTION: The Clinical Documentation Specialists (CDI) and [facility] Coding Staff appreciate your assistance in clarifying documentation. Please respond to the clarification below the line at the bottom and electronically sign. The CDI & [facility] Coding staff will review the response and follow-up if needed. Please note: Queries are made part of the Legal Health Record. If you have any questions, please contact the author of this message via ITS. Dr. Sin Maurer A drop in hemoglobin is documented in Internal Medicine. Additional clarification is requested. History/Risk Factors: 59-year-old male presents to the ED with bleeding from his nose. Medical History: ETOH abuse with difficult detox. H&P 12/16. Clinical indicators: Patient did have a 4-point drop in hemoglobin with initial hemoglobin of 12.2 down to 8.5, patient received 1 unit PRBCs with post hemoglobin of 8.7. Internal Medicine PN 12/17. Hemoglobin: 12/16: 8.5; 12/17: 8.7; 12/17: 8.5; 12/17 8.5. Treatment: 12/16 1 Unit PRBC Infused. ENT consult pending. Please clarify the drop in hemoglobin: [ ] Acute blood loss anemia [ ] Unable to determine [ ] Other, please specify (Template Last Revised: August 2020) Acute blood loss anemia due to severe epistaxis MTDD
[2020-12-17] MEDS ORDERED: IV FLUID CONTINUATION 600 ML IV ONE (14:04)
[2020-12-17] MEDS: SERTRALINE 100 MG TAB PO SCH (14:07)
[2020-12-17] MEDS ORDERED: LACTATED RINGERS 1,000 ML IV ONE ×3 (14:29→17:30)
[2020-12-17] MEDS ORDERED: SUCCINYLCHOLINE CHLORIDE 100 MG/5 ML SYR IV ONE (14:44)
[2020-12-17] MEDS ORDERED: KETAMINE 10 MG/ML 20 ML VIAL ONE (14:44)
[2020-12-17] MEDS ORDERED: PHENYLEPHRINE-0.9% NACL SYG 1,000 MCG/10 ML SYRINGE ONE (14:44)
[2020-12-17] MEDS ORDERED: PROPOFOL 10 MG/ML 20 ML VIAL IV ONE (14:44)
[2020-12-17] MEDS ORDERED: MIDAZOLAM 2 MG/2 ML VIAL ONE (14:44)
[2020-12-17] MEDS ORDERED: OXYMETAZOLINE 0.05% NASL SPRAY 1 SPRAY BOTTLE MISCELLANE ONE (15:31)
[2020-12-17] MEDS ORDERED: BACITRACIN ZINC 500 UNIT/GM OINT 28.4 GM TUBE TOPICAL ONE (15:31)
[2020-12-17] MEDS ORDERED: THROMBIN (BOVINE) 5,000 UNIT VIAL TOPICAL ONE ×2 (15:42)
[2020-12-17] MEDS: traZODone HCL 50 MG TAB PO SCH (21:30)
[2020-12-17] MEDS: ATORVASTATIN 20 MG TAB PO SCH (21:30)
[2020-12-17] MEDS: OXYMETAZOLINE 0.05% NASL SPRAY 1 SPRAY BOTTLE NASAL SCH (21:30)
[2020-12-18] MEDS: AMPICILLIN-SULBACTAM 1.5 GM in SODIUM CHLORIDE 0.9% 50 ML IVPB SCH ×3 (00:30→18:19)
[2020-12-18] MEDS: DIAZEPAM 5 MG/ML 2 ML INJ IVP SCH ×3 (07:47→18:19)
[2020-12-18 08:25] LABS: Anisocytosis Slight; HCT 22.4 % (39.0-53.0); HGB 7.5 gm/dL (13.0-17.5); MCH 33.5 pg (25.0-35.0); MCHC 33.5 g/dL (31.0-37.0); MCV 100.1 fL (80.0-100.0); Macrocytosis Slight; Mean Platelet Volume 7.5; Platelet Count 179 k/uL (150-450); RBC 2.23 m/uL (4.30-5.90); RDW 18.3 % (11.5-15.5); WBC 4.9 k/uL (3.8-10.6)
[2020-12-18 08:35] LABS: African American GFR (CKD) >90 (>60 ml/min/1.73 sqM); Anion Gap 4 mmol/L; Blood Urea Nitrogen 29 mg/dL (9-20); Calcium 8.3 mg/dL (8.4-10.2); Carbon Dioxide 27 mmol/L (22-30); Chloride 104 mmol/L (98-107); Glucose 70 mg/dL (74-99); Magnesium 1.6 mg/dL (1.6-2.3); Non-African American GFR(CKD) >90 (>60 ml/min/1.73 sqM); Potassium 3.6 mmol/L (3.5-5.1); Sodium 135 mmol/L (137-145)
--- NOTE | 2020-12-18 10:18 | P.PN ---
<Daniel Deluca - Last Filed: 12/18/20 09:55> Subjective Progress Note Date: 12/18/20 Hospital course: Patient is a 59-year-old male with a past medical history of anxiety and EtOH dependence/abuse. Patient presented to the emergency department with a chief complaint of bleeding from nose. Patient reports he awoke in his bed and noticed that his nose was bleeding, patient states he made multiple attempts to stop the bleeding but was unsuccessful so he came to the emergency department. Patient denies any known injuries or falls. Patient does admit to EtOH use last night as well as long-standing history of alcohol use/abuse with difficult detoxes. Patient would not be specific with amount he drinks daily. Patient denies history of intubation from detox. In ED patient had a Rhino Rocket placed in right nares, was given 1 dose of Rocephin, and lab work was completed. CBC revealed stable hemoglobin of 12.2. BMP revealed mild hyponatremia with sodium of 132, hypokalemia with potassium of 3.2, and hypomagnesemia with magnesium of 1.3. EtOH <10. Patient admitted under our services at this time and consultation to ENT. Physical exam: Patient seen and fully evaluated at bedside this morning. He was resting comfor tably. Withdrawal symptoms significantly improved upon assessment this morning. Patient has postsurgical packing in place to right nares, no noted active bleeding seen at this time. Patient denied having any complaints or needs at this time. Vital signs reviewed and stable. Morning hemoglobin 7.5 will recheck at noon and magnesium was 1.6, replaced and we will reassess tomorrow morning. General: non toxic, no distress, appears at stated age Derm: warm, dry. Large bruise to left shoulder multiple bruises in different stages of healing to bilateral lower extremities and left hip. Noted mild swelling to left hip today compared to yesterday, x-ray being completed. Head: atraumatic, normocephalic, symmetric EEN: Eyes: EOMI, no lid lag, anicteric sclera Ears: normal. Nose: Postsurgical nasal packing in place to right nares. Mouth: no lip lesion, mucus membranes moist. Cardiovascular: S1S2 normal with regular rate and rhythm. No murmurs, gallops, or rubs noted. Posterior tibial pulses palpated bilaterally. Cap refill less than 2 seconds. Lungs: Respirations even, regular, and unlabored on 3 L O2 via nasal cannula. Lungs clear to auscultation bilaterally. No wheezes, rhonchi, or rales noted. No accessory muscle use. Abdominal: soft, nontender to palpation, no guarding, no appreciable organomegaly Ext: no gross muscle atrophy, no edema, no contractures Neuro: CN II-XI grossly intact, no focal neuro deficits. Patient appears to be doing much better, minimal withdrawal signs today, slight tremors no diaphoresis and appears to be resting comfortably. Psych: Alert with appropriate affect Plan of care: Epistaxis resulting in acute blood loss anemia resulting in transfusion of 1 unit PRBCs -Post-surgical nasal packing in place to right nares -Hemoglobin 7.5 will repeat at 12 noon. -IV antibiotic: Unasyn 1.5 g every 8 hours -CT facial bones without contrast which revealed nondisplaced fractures at the floor of the right orbit without blowout component. Nondisplaced fractures noted to involve the lateral wall of the right maxillary sinus and posterior wall. No significant displacement noted. -ENT following- Dr. Morales took pt to OR yesterday afternoon. EtOH withdrawal -CIWA protocol in place with symptom triggered medication management with Ativan. -Scheduled Valium 5 mg IVP every 6 hours. -Librium 100 mg 3 times a day -Thiamine 100 mg twice daily. -Seizure precautions, aspiration precautions, and fall precautions in place. -CT head negative for acute intracranial process showing age-related atrophic and chronic small vessel ischemic changes. -Close monitoring of electrolyte levels, will replace as needed. Hypomagnesemia -Magnesium 1.6, replaced. -Will continue to monitor with repeat a.m. labs. Hypokalemia, resolved CODE STATUS: Full code DVT prophylaxis: SCDs Discussed with: patient and RN Anticipated discharge date: clinical course to determine Anticipated discharge place: home versus inpatient drug rehabilitation facility if patient agreeable A total of 45 minutes was spent on the care of this complex patient more than 50% of the time was spent in counseling and care coordination. Objective - Vital Signs Vital signs: Vital Signs Temp 98.8 F 12/18/20 04:00 Pulse 90 12/18/20 04:00 Resp 22 12/18/20 04:00 BP 148/79 12/18/20 04:00 Pulse Ox 100 12/18/20 04:00 Intake & Output 12/17/20 12/18/20 12/18/20 18:59 06:59 18:59 Intake Total 2840 Output Total 25 Balance 2815 Weight 92 kg 89.5 kg Intake: IV 2840 Invasive Line 2 40 Output: Estimated Blood Loss 25 Other: Voiding Method Diaper # Voids 0 1 # Bowel Movements 1 - Labs CBC & Chem 7: 12/18/20 07:14 12/18/20 07:14 Labs: Abnormal Lab Results - Last 24 Hours (Table) 12/17/20 12/17/20 12/17/20 Range/Units 07:57 07:57 11:43 RBC 2.45 L 2.65 L (4.30-5.90) m/uL Hgb 8.5 L 8.5 L (13.0-17.5) gm/dL Hct 24.2 L 26.6 L (39.0-53.0) % MCV 100.4 H (80.0-100.0) fL RDW 18.0 H 18.6 H (11.5-15.5) % Lymphocytes # 0.8 L (1.0-4.8) k/uL Sodium 134 L (137-145) mmol/L BUN 43 H (9-20) mg/dL POC Glucose (mg/dL) (75-99) mg/dL ALT 54 H (4-49) U/L Total Protein 6.0 L (6.3-8.2) g/dL 12/17/20 Range/Units 12:01 RBC (4.30-5.90) m/uL Hgb (13.0-17.5) gm/dL Hct (39.0-53.0) % MCV (80.0-100.0) fL RDW (11.5-15.5) % Lymphocytes # (1.0-4.8) k/uL Sodium (137-145) mmol/L BUN (9-20) mg/dL POC Glucose (mg/dL) 156 H (75-99) mg/dL ALT (4-49) U/L Total Protein (6.3-8.2) g/dL <Sin Maurer - Last Filed: 12/18/20 18:32> Objective - Vital Signs Vital signs: Vital Signs Temp 98.9 F 12/18/20 16:00 Pulse 75 12/18/20 16:00 Resp 22 12/18/20 04:00 BP 114/69 12/18/20 16:00 Pulse Ox 100 12/18/20 16:00 Intake & Output 12/17/20 12/18/20 12/18/20 18:59 06:59 18:59 Intake Total 2840 720 Output Total 25 150 Balance 2815 570 Weight 92 kg 89.5 kg Intake: IV 2840 Invasive Line 2 40 Oral 720 Output: Urine 150 Estimated Blood Loss 25 Other: Voiding Method Diaper Diaper # Voids 0 1 # Bowel Movements 1 1 - Labs CBC & Chem 7: 12/18/20 13:04 12/18/20 07:14 Labs: Abnormal Lab Results - Last 24 Hours (Table) 12/18/20 12/18/20 12/18/20 Range/Units 07:14 07:14 13:04 RBC 2.23 L 2.08 L (4.30-5.90) m/uL Hgb 7.5 L 7.1 L (13.0-17.5) gm/dL Hct 22.4 L 20.6 L (39.0-53.0) % MCV 100.1 H (80.0-100.0) fL RDW 18.3 H 17.4 H (11.5-15.5) % Sodium 135 L (137-145) mmol/L BUN 29 H (9-20) mg/dL Glucose 70 L (74-99) mg/dL Calcium 8.3 L (8.4-10.2) mg/dL Assessment and Plan Assessment: I reviewed the documentation as provided by the DOMINIQUE above, who is the original author of this note. I agree with the documented assessment and plan, with the following changes: None
[2020-12-18] MEDS: THIAMINE 100 MG TAB PO SCH ×2 (11:03→18:19)
[2020-12-18] MEDS: chlordiazePOXIDE 25 MG CAP PO SCH ×3 (11:03→22:25)
[2020-12-18] MEDS: busPIRone HCl 5 MG TAB PO SCH ×2 (11:03→21:08)
[2020-12-18] MEDS: PANTOPRAZOLE 40 MG/10 ML VIAL IV SCH ×2 (11:03→21:08)
[2020-12-18] MEDS: FOLIC ACID 1 MG TAB PO SCH (11:03)
[2020-12-18] MEDS: lisinopriL 20 MG TAB PO SCH (11:03)
[2020-12-18] MEDS: MAGNESIUM SULFATE-D5W PMX 1 GM in DEXTROSE/WATER 1 100ML.BAG IVPB SCH ×2 (11:04→13:19)
[2020-12-18] MEDS: OXYMETAZOLINE 0.05% NASL SPRAY 1 SPRAY BOTTLE NASAL SCH ×3 (11:04→22:25)
[2020-12-18 13:15] LABS: Anisocytosis Slight; HCT 20.6 % (39.0-53.0); HGB 7.1 gm/dL (13.0-17.5); MCH 34.3 pg (25.0-35.0); MCHC 34.7 g/dL (31.0-37.0); MCV 98.9 fL (80.0-100.0); Macrocytosis Slight; Mean Platelet Volume 8.6; Platelet Count 166 k/uL (150-450); RBC 2.08 m/uL (4.30-5.90); RDW 17.4 % (11.5-15.5); WBC 3.9 k/uL (3.8-10.6)
[2020-12-18] MEDS: SERTRALINE 100 MG TAB PO SCH (13:20)
[2020-12-18 18:27] LABS: Anisocytosis Slight; HCT 21.1 % (39.0-53.0); HGB 7.3 gm/dL (13.0-17.5); MCH 33.9 pg (25.0-35.0); MCHC 34.4 g/dL (31.0-37.0); MCV 98.4 fL (80.0-100.0); Macrocytosis Slight; Mean Platelet Volume 7.5; Platelet Count 192 k/uL (150-450); RBC 2.15 m/uL (4.30-5.90); RDW 17.2 % (11.5-15.5); WBC 3.8 k/uL (3.8-10.6)
[2020-12-18] MEDS: traZODone HCL 50 MG TAB PO SCH (21:08)
[2020-12-18] MEDS: ATORVASTATIN 20 MG TAB PO SCH (21:08)
[2020-12-19] MEDS: AMPICILLIN-SULBACTAM 1.5 GM in SODIUM CHLORIDE 0.9% 50 ML IVPB SCH ×4 (00:15→22:37)
[2020-12-19] MEDS: DIAZEPAM 5 MG/ML 2 ML INJ IVP SCH ×5 (00:15→22:45)
[2020-12-19] MEDS: THIAMINE 100 MG TAB PO SCH ×2 (06:45→17:29)
--- NOTE | 2020-12-19 07:49 | CONS ---
CONSULTATION DATE OF CONSULTATION: 12/17/2020 REASON FOR CONSULTATION: Uncontrolled bilateral epistaxis. HISTORY OF PRESENT ILLNESS: This patient is a 59-year-old male who was admitted via the [facility] Emergency Room with a complaint of uncontrolled epistaxis on 12/16/2020. The patient has a history of alcohol abuse and stated that he has not had anything to drink for at least a week to a week and a half because he is trying to stop. He has a history of alcoholism and numerous hospitalizations and attempts at detoxification. At the time he was seen in the emergency room, the ER physicians evaluated the patient and attempted to stop the bleeding by the usual methods. However, because this was not successful, they elected to insert bilateral Rhino Rocket epistaxis nasal balloons and admit the patient. I was consulted by Dr. Alvarenga while the patient and was in the emergency room and advised her that I would see him after my surgeries on Sunday afternoon. However, on the morning of 12/17/2020, I received an urgent call that the patient had apparently had significant bleeding during the night and was currently bleeding. His hemoglobin had dropped from 12gm to 8gm and there was a tremendous amount of concern. At that time, I advised Dr. Alvarenga that I would see the patient right after my first surgery and evaluate him and if necessary, we would consider scheduling him for surgery. The patient is a fair historian, because he has been sedated by the workforce staffing advisor because of his withdrawal symptoms. Although he does answer questions, he does not recall having fallen and he also states he does not know exactly how many drinks he usually takes per day. A CT scan of the facial bones in the emergency room revealed that the patient had possible nondisplaced fractures of the nasal bones, the right orbital floor, and the lateral wall of the right maxillary sinus. The right maxillary sinus apparently was filled with blood. It is felt that most likely the patient had fallen at home and does not recall the incident. PAST MEDICAL HISTORY: Reveals he has no allergies to medications. HOME MEDICATIONS: His home medications include Trazodone, lisinopril, Buspar, Zoloft, Ativan, Lipitor, Revia, and a baby aspirin daily. REVIEW OF SYSTEMS: Positive with respect to the cardiovascular system for hypertension. The respiratory system is positive for COPD and a history of sleep apnea. Metabolic endocrine system is positive for hypercholesterolemia. As noted above, the patient has history of alcoholism. The remainder of the review of systems is unremarkable. PHYSICAL EXAMINATION: This patient is a 59-year-old male who is alert, cooperative, but is only a fair historian at this time because of sedation. He appears to be oriented to time and place. HEENT: Exam shows the patient is normocephalic. Tympanic membranes are normal. Middle ear spaces are free of any fluid or infection. Pupils equal, round, react to light and accommodation. Extraocular movements are within normal limits. Intranasal examination reveals bilateral Rhino Rocket epistaxis nasal balloons are intact and saturated with blood. In addition to this, there appears to be blood slowly seeping around these balloons, which are only partially inserted into the nose. Examination of the oropharynx reveals there is a slight amount of blood draining down the posterior pharyngeal wall. The patient does not appear to be having any difficulty with respect to aspiration. Palpation of the neck, cranial nerves 2-12 and the remainder of the head and neck exam is unremarkable. In addition, there was some tenderness over the bridge of the nose, but no evidence of any restricted range of motion of either orbit or any facial anesthesia related to the facial fractures. CHEST/CARDIOVASCULAR: Lung garcia are clear. The lung sounds are somewhat distant at the bases. The patient is in regular sinus rhythm S1, S2 are present without any murmurs. Peripheral pulses appear to be intact and symmetrical. ABDOMEN: There is no evident of any masses, megaly or tenderness. The abdomen is soft. The remainder of physical exam is unremarkable. IMPRESSION: Uncontrolled bilateral epistaxis, anterior/posterior. PLAN: I plan on placing this patient on the schedule this morning for surgery sometime during my current surgical lineup. At the present time, he appears to be stable and therefore I think we will have time to work him into the schedule. I do not feel I can control his bleeding in the hospital room setting for obvious reasons, poor lighting, no proper suction equipment available, and lack of other proper equipment. Therefore, this patient would be best taken to surgery and at that time the nose could be carefully evaluated and any areas of bleeding can be controlled, most likely with electrocautery. If necessary, I will repack the patient's nose properly. I have alerted the nurse to the fact that I will be in the operating room all morning and if the need should arise, they may certainly contact me for any type of emergent problems. The operating room will contact the floor with regards to the time that the patient should be brought over to the surgical suite for definitive treatment. I want to take this opportunity to thank you for allowing me to assist in the care of your patient. If I could be of any further assistance, please feel free to call my office. YOLANDA / HARJEET: [id number] / MTDD
--- NOTE | 2020-12-19 07:49 | OP ---
OPERATIVE REPORT DATE OF SURGERY: 12/17/2020 PREOPERATIVE DIAGNOSIS: Severe uncontrolled bilateral epistaxis, emergency surgery. POSTOPERATIVE DIAGNOSIS: Severe uncontrolled bilateral epistaxis, emergency surgery. ANESTHESIA: General. OPERATIVE PROCEDURE: Emergency control of severe bilateral anterior and posterior epistaxis. OPERATING SURGEON: Dr. Morales. ESTIMATED BLOOD LOSS: Less than 125 mL. PROCEDURE: The patient was placed on the operating table in the supine position. After uneventful induction and endotracheal intubation, satisfactory general anesthesia was obtained. Initially, the patient had 2 Rhinostat nasal balloons inserted in each naris. These were subsequently deflated and removed. Upon removing, the patient did in fact start bleeding. Both nasal chambers were subsequently packed with several cottonoids which had been saturated with Afrin nasal spray. These were left in place for a period of approximately 10 minutes to have a help achieve vasoconstriction and slow the bleeding, as well as to shrink both the inferior turbinates. After a period of approximately 10 minutes had elapsed, these cottonoids were subsequently removed and were replaced with a second set of cottonoids saturated with Afrin nasal spray and these were left in place for a period of approximately 3 minutes. Upon removal, it was noted the bleeding had slowed down significantly and at this point, an attempt was made to identify all of the bleeding site bilaterally in an effort to hopefully cauterize them. The procedure was began on the right naris where it was noted the patient had a severely deviated septum. This is in addition to the fact that he is noted to have a nondisplaced fracture of the nasal bones and of the medial wall of the right maxillary sinus. It was noted that there were multiple bleeding sites which involved torn mucosa as well as obvious arterial bleeding. These were controlled by using the suction cautery at a relatively high setting to cauterize and seal these blood vessels and other areas of bleeding. The procedure was started at the posterior aspect of the nose superiorly on the nasal septum and was gradually advanced anteriorly on the septum and subsequently it was noted that there were several tears of the mucous membranes which were bleeding on the right inferior turbinate. This area was closed. Finally, there was a laceration noted at the floor of the nose from which there was oozing of blood and this also was cauterized. By cauterizing with such a high wattage, the bleeding was able to be controlled on the right side. A third cottonoid which was saturated with Afrin nasal spray was placed in the right side while attention was directed to the left side. After suctioning out blood clots from the left side, it was noted again then on the left side there were multiple areas of bleeding both on the septum and the inferior turbinate. There was also bleeding posteriorly. Therefore, again using a suction cautery and working from posteriorly to anteriorly and beginning on the septum, areas of obvious active bleeding were cauterized including what appeared to be several arterial sources. There was noted to be lacerations and excoriations of the mucous membranes and these areas were subsequently cauterized with the cautery set at 40 lundberg. Next, the attention was directed towards the left inferior turbinate, which had been lacerated and mucous membrane had been excoriated in areas, and these were obvious active bleeding sites. These areas were cauterized using the suction cautery, again working from posterior to anterior. Having stopped all the bleeding sources on the left side of the naris, this side was also packed with cottonoids which had been saturated with Afrin nasal spray again for further vasoconstriction. Attention was then directed back to the right side where after removing the cottonoid, inspection revealed there was no evidence of any active bleeding and the entire area was dusted generously with Cornell hemostatic powder from anterior to posterior. The same procedure was carried out on the left naris after removing the cottonoid on the left side and it too was generously dusted with the Cornell hemostatic powder. Because there appeared to be more of bleeding on the right side, it was decided to insert an 8 cm Merocel nasal tampon into the right side only. In addition, the Merocel sponge was then inflated with approximately 4 cc of liquid thrombin to further advance hemostasis. At this point, inspection revealed there was no evidence of any bleeding intranasally. The posterior pharynx was checked. There did not appear to be any bleeding down the posterior pharyngeal wall and at this point, the procedure was terminated. Estimated blood loss was approximately 125 cc. At this point, the procedure was terminated. There were no intraoperative complications. Patient tolerated the procedure well and was returned to the recovery room in satisfactory condition. This procedure took approximately 1 hour and 15 minutes to complete which is an extended time, however, this was an emergency situation because the patient's hemoglobin had dropped from 12 grams to 8 grams. MMODL / IJN: [id number] /
--- NOTE | 2020-12-19 07:50 | PN ---
PROGRESS NOTE DATE OF SERVICE: 12/18/2020 SUBJECTIVE: Vital signs are stable. The patient is alert and cooperative and is not actively bleeding. OBJECTIVE: HEENT: Examination of the nose reveals that there is no active bleeding from the nose. In addition to this, the nasal tampon which was inserted in the patient's right naris during surgery appears to be dry at this point. The left side is completely dry. The nurses are currently spraying 2 puffs of Afrin nasal spray in the left naris 3 times daily. Examination of the oropharynx reveals no bleeding down the posterior pharynx. The remainder of the head neck exam and examination in general is within normal limits. ASSESSMENT: Bilateral anterior-posterior epistaxis, controlled. PLAN: I will most likely leave the nasal tampon in place at least until Sunday or Sunday to allow the blood vessels to thrombose, which will then allow for safe removal of the tampon. In addition to this, when I initially saw the patient, he had nasal oxygen cannulas present and this is probably not the best way to provide this patient with O2 because the nasal prongs are resting right in one of the areas in which I had cauterized for bleeding. Therefore, I went to the surgical suite and obtain a facial tent, which is the proper device to use in this type of patient. It allows the patient to receive humidified air at 40% without having anything either resting on his nose or projecting into his nose. These facial tents are readily available in the postop area of surgery and they should be available through the respiratory department. Certainly, in a patient who may possibly be experiencing withdrawal symptoms from alcohol, it probably is best not to have anything such as a mask, etc., on the patient's face. I will continue to see the patient daily as long as he is in the hospital and as I stated above, most likely on Sunday or Sunday I will remove the nasal tampon from the right naris. At that time, I will most likely have the nurses start putting the Afrin nasal spray in that right side of the nares once the nasal tampon is removed. YOLANDA / UMANGN: [id number] / MTDD
[2020-12-19 08:10] LABS: African American GFR (CKD) >90 (>60 ml/min/1.73 sqM); Anion Gap 7 mmol/L; Blood Urea Nitrogen 19 mg/dL (9-20); Calcium 8.2 mg/dL (8.4-10.2); Carbon Dioxide 26 mmol/L (22-30); Chloride 104 mmol/L (98-107); Glucose 92 mg/dL (74-99); Magnesium 1.8 mg/dL (1.6-2.3); Non-African American GFR(CKD) >90 (>60 ml/min/1.73 sqM); Potassium 3.2 mmol/L (3.5-5.1); Sodium 137 mmol/L (137-145)
[2020-12-19 08:12] LABS: Anisocytosis Slight; HCT 21.4 % (39.0-53.0); HGB 7.3 gm/dL (13.0-17.5); MCHC 34.3 g/dL (31.0-37.0); MCV 99.2 fL (80.0-100.0); Macrocytosis Slight; Mean Platelet Volume 7.6; Platelet Count 222 k/uL (150-450); RBC 2.16 m/uL (4.30-5.90); RDW 17.8 % (11.5-15.5); WBC 3.3 k/uL (3.8-10.6)
[2020-12-19] MEDS: busPIRone HCl 5 MG TAB PO SCH ×2 (08:57→20:07)
[2020-12-19] MEDS: PANTOPRAZOLE 40 MG/10 ML VIAL IV SCH (08:58)
[2020-12-19] MEDS: FOLIC ACID 1 MG TAB PO SCH (08:58)
[2020-12-19] MEDS: chlordiazePOXIDE 25 MG CAP PO SCH ×3 (08:58→20:07)
[2020-12-19] MEDS: OXYMETAZOLINE 0.05% NASL SPRAY 1 SPRAY BOTTLE NASAL SCH ×3 (08:58→20:52)
[2020-12-19] MEDS: lisinopriL 20 MG TAB PO SCH (08:58)
[2020-12-19] MEDS ORDERED: POTASSIUM CHLORIDE ER 20 MEQ TAB.ER PO STA (09:36)
--- NOTE | 2020-12-19 09:47 | P.PN ---
<Daniel Deluca - Last Filed: 12/19/20 09:27> Subjective Progress Note Date: 12/19/20 Hospital course: Patient is a 59-year-old male with a past medical history of anxiety and EtOH dependence/abuse. Patient presented to the emergency department with a chief complaint of bleeding from nose. Patient reports he awoke in his bed and noticed that his nose was bleeding, patient states he made multiple attempts to stop the bleeding but was unsuccessful so he came to the emergency department. Patient denies any known injuries or falls. Patient does admit to EtOH use last night as well as long-standing history of alcohol use/abuse with difficult detoxes. Patient would not be specific with amount he drinks daily. Patient denies history of intubation from detox. In ED patient had a Rhino Rocket placed in right nares, was given 1 dose of Rocephin, and lab work was completed. CBC revealed stable hemoglobin of 12.2. BMP revealed mild hyponatremia with sodium of 132, hypokalemia with potassium of 3.2, and hypomagnesemia with magnesium of 1.3. EtOH <10. Patient admitted under our services at this time and consultation to ENT. Physical exam: Patient seen and fully evaluated at bedside this morning. He was sitting up in bed eating breakfast at this time.. Withdrawal symptoms continue to improve Librium decreased to 25 mg 3 times daily and volume decreased to 2.5 mg 4 times daily. CIWA protocol remains in place. Patient has postsurgical packing in place to right nares, no noted active bleeding seen at this time. Patient denied having any complaints or needs at this time. Vital signs reviewed and stable. Morning hemoglobin stable at 7.3. Mild hypokalemia with potassium of 3.3 and being replaced. Discussed possibility with patient to be discharged to inpatient drug and alcohol rehabilitation center when he is stable, patient very adamant and against this at this time. General: non toxic, no distress, appears at stated age Derm: warm, dry. Large bruise to left shoulder multiple bruises in different stages of healing to bilateral lower extremities and left hip. Head: atraumatic, normocephalic, symmetric EEN: Eyes: EOMI, no lid lag, anicteric sclera Ears: normal. Nose: Postsurgical nasal packing in place to right nares. Mouth: no lip lesion, mucus membranes moist. Cardiovascular: S1S2 normal with regular rate and rhythm. No murmurs, gallops, or rubs noted. Posterior tibial pulses palpated bilaterally. Cap refill less than 2 seconds. Lungs: Respirations even, regular, and unlabored on 3 L O2 via nasal cannula. Lungs clear to auscultation bilaterally. No wheezes, rhonchi, or rales noted. No accessory muscle use. Abdominal: soft, nontender to palpation, no guarding, no appreciable organomegaly Ext: no gross muscle atrophy, no edema, no contractures Neuro: CN II-XI grossly intact, no focal neuro deficits. Patient appears to be doing much better, minimal withdrawal signs today, slight tremors no diaphoresis and appears to be resting comfortably. Psych: Alert with appropriate affect Plan of care: Epistaxis resulting in acute blood loss anemia resulting in transfusion of 1 unit PRBCs -Post-surgical nasal packing in place to right nares -Hemoglobin 7.5 will repeat at 12 noon. -IV antibiotic: Unasyn 1.5 g every 8 hours -CT facial bones without contrast which revealed nondisplaced fractures at the floor of the right orbit without blowout component. Nondisplaced fractures noted to involve the lateral wall of the right maxillary sinus and posterior wall. No significant displacement noted. -ENT following- Dr. Morales took pt to OR yesterday afternoon. EtOH withdrawal -CIWA protocol in place with symptom triggered medication management with Ativan. -Scheduled Valium 5 mg IVP every 6 hours. -Librium 100 mg 3 times a day -Thiamine 100 mg twice daily. -Seizure precautions, aspiration precautions, and fall precautions in place. -CT head negative for acute intracranial process showing age-related atrophic and chronic small vessel ischemic changes. -Close monitoring of electrolyte levels, will replace as needed. Hypomagnesemia, resolved. Hypokalemia -Potassium 3.3, replaced. -Will continue to monitor with repeat a.m. labs. CODE STATUS: Full code DVT prophylaxis: SCDs Discussed with: patient and RN Anticipated discharge date: clinical course to determine Anticipated discharge place: home versus inpatient drug rehabilitation facility if patient agreeable A total of 45 minutes was spent on the care of this complex patient more than 50% of the time was spent in counseling and care coordination. Objective - Vital Signs Vital signs: Vital Signs Temp 97.3 F L 12/19/20 04:00 Pulse 78 12/19/20 04:00 Resp 20 12/19/20 04:00 BP 90/52 12/19/20 04:00 Pulse Ox 100 12/19/20 04:00 Intake & Output 12/18/20 12/19/20 12/19/20 18:59 06:59 18:59 Intake Total 720 240 Output Total 150 150 Balance 570 -150 240 Weight 87.5 kg Intake: Oral 720 240 Output: Urine 150 150 Other: Voiding Method Diaper Diaper # Bowel Movements 1 1 - Labs CBC & Chem 7: 12/19/20 06:48 12/19/20 06:48 Labs: Abnormal Lab Results - Last 24 Hours (Table) 12/18/20 12/18/20 12/19/20 Range/Units 13:04 17:59 06:48 WBC 3.3 L (3.8-10.6) k/uL RBC 2.08 L 2.15 L 2.16 L (4.30-5.90) m/uL Hgb 7.1 L 7.3 L 7.3 L (13.0-17.5) gm/dL Hct 20.6 L 21.1 L 21.4 L (39.0-53.0) % RDW 17.4 H 17.2 H 17.8 H (11.5-15.5) % Potassium (3.5-5.1) mmol/L Calcium (8.4-10.2) mg/dL 12/19/20 Range/Units 06:48 WBC (3.8-10.6) k/uL RBC (4.30-5.90) m/uL Hgb (13.0-17.5) gm/dL Hct (39.0-53.0) % RDW (11.5-15.5) % Potassium 3.2 L (3.5-5.1) mmol/L Calcium 8.2 L (8.4-10.2) mg/dL <Sin Maurer - Last Filed: 12/19/20 12:12> Objective - Vital Signs Vital signs: Vital Signs Temp 97.8 F 12/19/20 08:00 Pulse 78 12/19/20 08:00 Resp 20 12/19/20 04:00 BP 109/60 12/19/20 08:00 Pulse Ox 92 L 12/19/20 08:30 Intake & Output 12/18/20 12/19/20 12/19/20 18:59 06:59 18:59 Intake Total 720 340 Output Total 150 150 Balance 570 -150 340 Weight 87.5 kg Intake: Oral 720 340 Output: Urine 150 150 Other: Voiding Method Diaper Diaper # Bowel Movements 1 1 - Labs CBC & Chem 7: 12/19/20 06:48 12/19/20 06:48 Labs: Abnormal Lab Results - Last 24 Hours (Table) 12/18/20 12/18/20 12/19/20 Range/Units 13:04 17:59 06:48 WBC 3.3 L (3.8-10.6) k/uL RBC 2.08 L 2.15 L 2.16 L (4.30-5.90) m/uL Hgb 7.1 L 7.3 L 7.3 L (13.0-17.5) gm/dL Hct 20.6 L 21.1 L 21.4 L (39.0-53.0) % RDW 17.4 H 17.2 H 17.8 H (11.5-15.5) % Potassium (3.5-5.1) mmol/L Calcium (8.4-10.2) mg/dL 12/19/20 Range/Units 06:48 WBC (3.8-10.6) k/uL RBC (4.30-5.90) m/uL Hgb (13.0-17.5) gm/dL Hct (39.0-53.0) % RDW (11.5-15.5) % Potassium 3.2 L (3.5-5.1) mmol/L Calcium 8.2 L (8.4-10.2) mg/dL Assessment and Plan Assessment: I reviewed the documentation as provided by the DOMINIQUE above, who is the original author of this note. I agree with the documented assessment and plan, with the following changes: None
[2020-12-19] MEDS: SERTRALINE 100 MG TAB PO SCH (17:29)
[2020-12-19] MEDS: PANTOPRAZOLE 40 MG TABLET PO SCH (20:08)
[2020-12-19] MEDS: traZODone HCL 50 MG TAB PO SCH (20:08)
[2020-12-19] MEDS: ATORVASTATIN 20 MG TAB PO SCH (20:08)
--- NOTE | 2020-12-20 05:31 | PN ---
PROGRESS NOTE DATE OF SERVICE: 12/19/2020. SUBJECTIVE: Vital signs are stable. Patient is in no acute distress. He appears more calm and less agitated and less restless. He states that he would like to go home soon and that he has a good support system at home and also that he belongs to and has other channels for assisting him in his attempt to detox. I advised the patient if necessary that we could put him in contact with [employer] if he felt that he needed any more assistance, but he declined. OBJECTIVE: HEENT: Patient is normocephalic. The nasal tampon on the right side remains dry. The left naris/nostril also remains dry and no evidence of any active bleeding. Examination of oropharynx does not reveal any evidence of any active bleeding. ASSESSMENT: Bilateral anterior-posterior epistaxis, controlled with surgery. PLAN: I will be in tomorrow sometime after lunch to remove the packing from the patient's right naris. Please do not discharge the patient before I remove this nasal packing and also please do not attempt to remove it before I see the patient. At that time, I will give the patient the appropriate going home instructions with regard to the care of his nose and also have the nurses of the patient schedule a followup appointment in my office in approximately 1 week. I will see the patient sometime tomorrow between 12 and 1:30 pm. YOLANDA / HARJEET: [id number] / ANA
[2020-12-20] MEDS: THIAMINE 100 MG TAB PO SCH ×2 (06:07→16:06)
[2020-12-20] MEDS: DIAZEPAM 5 MG/ML 2 ML INJ IVP SCH (06:08)
[2020-12-20 08:15] LABS: African American GFR (CKD) >90 (>60 ml/min/1.73 sqM); Anion Gap 5 mmol/L; Blood Urea Nitrogen 12 mg/dL (9-20); Calcium 8.7 mg/dL (8.4-10.2); Carbon Dioxide 27 mmol/L (22-30); Chloride 107 mmol/L (98-107); Glucose 86 mg/dL (74-99); Magnesium 1.7 mg/dL (1.6-2.3); Non-African American GFR(CKD) >90 (>60 ml/min/1.73 sqM); Potassium 3.4 mmol/L (3.5-5.1); Sodium 139 mmol/L (137-145)
[2020-12-20 08:19] LABS: Anisocytosis Slight; HCT 22.8 % (39.0-53.0); HGB 7.6 gm/dL (13.0-17.5); MCH 33.5 pg (25.0-35.0); MCHC 33.4 g/dL (31.0-37.0); MCV 100.3 fL (80.0-100.0); Macrocytosis Slight; Platelet Count 312 k/uL (150-450); RBC 2.28 m/uL (4.30-5.90); RDW 17.5 % (11.5-15.5); WBC 3.3 k/uL (3.8-10.6)
[2020-12-20] MEDS: OXYMETAZOLINE 0.05% NASL SPRAY 1 SPRAY BOTTLE NASAL SCH ×3 (09:22→20:06)
[2020-12-20] MEDS: AMPICILLIN-SULBACTAM 1.5 GM in SODIUM CHLORIDE 0.9% 50 ML IVPB SCH ×3 (09:22→23:50)
[2020-12-20] MEDS: lisinopriL 20 MG TAB PO SCH (09:22)
[2020-12-20] MEDS: chlordiazePOXIDE 25 MG CAP PO SCH ×2 (09:23→20:05)
[2020-12-20] MEDS: FOLIC ACID 1 MG TAB PO SCH (09:23)
[2020-12-20] MEDS: busPIRone HCl 5 MG TAB PO SCH ×2 (09:23→20:06)
[2020-12-20] MEDS: PANTOPRAZOLE 40 MG TABLET PO SCH ×2 (09:23→20:05)
[2020-12-20] MEDS ORDERED: POTASSIUM CHLORIDE ER 20 MEQ TAB.ER PO STA (10:16)
--- NOTE | 2020-12-20 10:22 | P.PN ---
<Daniel Deluca - Last Filed: 12/20/20 10:12> Subjective Progress Note Date: 12/20/20 Hospital course: Patient is a 59-year-old male with a past medical history of anxiety and EtOH dependence/abuse. Patient presented to the emergency department with a chief complaint of bleeding from nose. Patient reports he awoke in his bed and noticed that his nose was bleeding, patient states he made multiple attempts to stop the bleeding but was unsuccessful so he came to the emergency department. Patient denies any known injuries or falls. Patient does admit to EtOH use last night as well as long-standing history of alcohol use/abuse with difficult detoxes. Patient would not be specific with amount he drinks daily. Patient denies history of intubation from detox. In ED patient had a Rhino Rocket placed in right nares, was given 1 dose of Rocephin, and lab work was completed. CBC revealed stable hemoglobin of 12.2. BMP revealed mild hyponatremia with sodium of 132, hypokalemia with potassium of 3.2, and hypomagnesemia with magnesium of 1.3. EtOH <10. Patient admitted under our services at this time and consultation to ENT. Physical exam: Patient seen and fully evaluated at bedside this morning. He was sitting up in bed eating breakfast at this time.. No tremors noted this morning. Librium further weaned and decreased to 25 mg 2 times daily with plans to discontinue tomorrow, and scheduled Valium discontinued at this time. CIWA protocol remains in place, patient has not needed further management with benzodiazepines other than as scheduled. Patient has postsurgical packing in place to right nares, no noted active bleeding seen at this time. Patient denied having any complaints or needs at this time. Vital signs reviewed and stable. Morning hemoglobin stable at 7.6. Mild hypokalemia with potassium of 3.4 and hypomagnesemia 1.7 and being replaced. Reattempted to discuss possibility with patient to be discharged to inpatient drug and alcohol rehabilitation center when he is stable, patient again very adamant and against this at this time denying that he has a drinking problem anymore and states he follows with AA. General: non toxic, no distress, appears at stated age Derm: warm, dry. Large bruise to left shoulder multiple bruises in different stages of healing to bilateral lower extremities and left hip. Head: atraumatic, normocephalic, symmetric EEN: Eyes: EOMI, no lid lag, anicteric sclera Ears: normal. Nose: Postsurgical nasal packing in place to right nares. Mouth: no lip lesion, mucus membranes moist. Cardiovascular: S1S2 normal with regular rate and rhythm. No murmurs, gallops, or rubs noted. Posterior tibial pulses palpated bilaterally. Cap refill less than 2 seconds. Lungs: Respirations even, regular, and unlabored on 3 L O2 via nasal cannula. Lungs clear to auscultation bilaterally. No wheezes, rhonchi, or rales noted. No accessory muscle use. Abdominal: soft, nontender to palpation, no guarding, no appreciable organomegaly Ext: no gross muscle atrophy, no edema, no contractures Neuro: CN II-XI grossly intact, no focal neuro deficits. Patient appears to be doing much better, minimal withdrawal signs today, slight tremors no diaphoresis and appears to be resting comfortably. Psych: Alert with appropriate affect Plan of care: Epistaxis resulting in acute blood loss anemia requiring transfusion of 1 unit PRBCs -Post-surgical nasal packing in place to right nares -Hemoglobin 7.6 -IV antibiotic: Unasyn 1.5 g every 8 hours -CT facial bones without contrast which revealed nondisplaced fractures at the floor of the right orbit without blowout component. Nondisplaced fractures noted to involve the lateral wall of the right maxillary sinus and posterior wall. No significant displacement noted. -ENT following- Dr. Morales took pt to OR for cauterization on 12/18/20 EtOH withdrawal -CIWA protocol in place with symptom triggered medication management with Ativan. -Discontinue Valium -Decrease Librium to 25 mg twice a day, plan to discontinue tomorrow -Thiamine 100 mg twice daily. -Seizure precautions, aspiration precautions, and fall precautions in place. -CT head negative for acute intracranial process showing age-related atrophic and chronic small vessel ischemic changes. -Close monitoring of electrolyte levels, will replace as needed. Hypomagnesemia -Magnesium 1.7, replaced -Will continue to monitor with repeat a.m. labs. Hypokalemia -Potassium 3.4, replaced. -Will continue to monitor with repeat a.m. labs. CODE STATUS: Full code DVT prophylaxis: SCDs Discussed with: patient and RN Anticipated discharge date: Tomorrow morning Anticipated discharge place: Home A total of 45 minutes was spent on the care of this complex patient more than 50% of the time was spent in counseling and care coordination. Objective - Vital Signs Vital signs: Vital Signs Temp 98.3 F 12/20/20 03:47 Pulse 62 12/20/20 03:47 Resp 18 12/20/20 03:47 BP 122/86 12/20/20 03:47 Pulse Ox 94 L 12/20/20 03:47 Intake & Output 12/19/20 12/20/20 12/20/20 18:59 06:59 18:59 Intake Total 460 590 Output Total 200 350 Balance 260 240 Weight 87.5 kg Intake: Intake, IV Titration 350 Amount Ampicillin-Sulbactam 1.5 50 gm In Sodium Chloride 0.9 % 50 ml @ 100 mls/hr IVPB Q8HR [facility] Rx#:[id number] IV Fluid Continuation 600 300 ml @ 0 mls/hr IV .STK- [facility] Rx#:[id number] Oral 460 240 Output: Urine 200 350 Other: Voiding Method Diaper # Voids 1 # Bowel Movements 1 - Labs CBC & Chem 7: 12/20/20 07:50 12/20/20 07:50 Labs: Abnormal Lab Results - Last 24 Hours (Table) 12/20/20 12/20/20 Range/Units 07:50 07:50 WBC 3.3 L (3.8-10.6) k/uL RBC 2.28 L (4.30-5.90) m/uL Hgb 7.6 L (13.0-17.5) gm/dL Hct 22.8 L (39.0-53.0) % MCV 100.3 H (80.0-100.0) fL RDW 17.5 H (11.5-15.5) % Potassium 3.4 L (3.5-5.1) mmol/L <Sin Maurer - Last Filed: 12/20/20 17:28> Objective - Vital Signs Vital signs: Vital Signs Temp 98.7 F 12/20/20 16:00 Pulse 75 12/20/20 16:00 Resp 18 12/20/20 16:00 BP 136/75 12/20/20 16:00 Pulse Ox 100 12/20/20 16:48 Intake & Output 12/19/20 12/20/20 12/20/20 18:59 06:59 18:59 Intake Total 460 590 460 Output Total 200 350 Balance 260 240 460 Weight 87.5 kg Intake: Intake, IV Titration 350 Amount Ampicillin-Sulbactam 1.5 50 gm In Sodium Chloride 0.9 % 50 ml @ 100 mls/hr IVPB Q8HR [facility] Rx#:[id number] IV Fluid Continuation 600 300 ml @ 0 mls/hr IV .STK- [facility] Rx#:[id number] Oral 460 240 460 Output: Urine 200 350 Other: Voiding Method Diaper Diaper # Voids 1 2 # Bowel Movements 1 - Labs CBC & Chem 7: 12/20/20 07:50 12/20/20 07:50 Labs: Abnormal Lab Results - Last 24 Hours (Table) 12/20/20 12/20/20 Range/Units 07:50 07:50 WBC 3.3 L (3.8-10.6) k/uL RBC 2.28 L (4.30-5.90) m/uL Hgb 7.6 L (13.0-17.5) gm/dL Hct 22.8 L (39.0-53.0) % MCV 100.3 H (80.0-100.0) fL RDW 17.5 H (11.5-15.5) % Potassium 3.4 L (3.5-5.1) mmol/L Assessment and Plan Assessment: I reviewed the documentation as provided by the DOMINIQUE above, who is the original author of this note. I agree with the documented assessment and plan, with the following changes: None
[2020-12-20] MEDS: MAGNESIUM SULFATE-D5W PMX 1 GM in DEXTROSE/WATER 1 100ML.BAG IVPB SCH ×2 (12:05→17:05)
[2020-12-20] MEDS: SERTRALINE 100 MG TAB PO SCH (16:05)
[2020-12-20] MEDS: ATORVASTATIN 20 MG TAB PO SCH (20:05)
[2020-12-20] MEDS: traZODone HCL 50 MG TAB PO SCH (20:05)
--- NOTE | 2020-12-21 03:50 | PN ---
PROGRESS NOTE DATE OF THE CONSULTATION NOTE: 12/20/2020 SUBJECTIVE: Vital signs are stable. The patient is alert, alert, cooperative, and well- oriented to time and place today. He states he has not had any further active bleeding. He apparently is very anxious to go home today because he has an employment appointment tomorrow, 12/21/2020. I had a fairly lengthy discussion with the patient with the nurse present in room regarding the fact that the that the other physicians would like him to stay an additional day and that this would be the best way to proceed. In addition, I also advised him that if he would like, certainly his nurse can call his potential employer and speak to him with regard to the interview that he has scheduled and ask if this could be rescheduled at a later date. Since the patient has been hospitalized, I doubt very seriously if the employer would object to rescheduling this gentleman for a different date for an employment interview. However, the patient is quite anxious to get home despite the fact that I do not think that he is physically in any shape to go to an interview. He is still somewhat unsteady on his feet and weak, possibly from the significant blood loss that he has had over the past several days. He agreed to think about staying and let the nursing staff know. OBJECTIVE: HEENT: Patient is normocephalic. Intranasal examination reveals no evidence of any active bleeding on the left side. The nasal packing/tampon was removed from the right side without incident. Inspection of the tampon/packing revealed that it was essentially dry. Intranasal inspection, revealed no evidence of any active bleeding. Examination of oropharynx revealed no bleeding down the posterior pharyngeal wall. Remainder of the head and neck exam and physical exam is unchanged since this admission. ASSESSMENT: Bilateral anterior-posterior epistaxis, controlled with surgery. PLAN: From an ENT standpoint, the patient can be discharged tomorrow, 12/21/2020. I spoke with the nurses later on in the day and they advised that he had agreed to stay an additional day. When he goes home, I have advised the patient that he should avoid blowing his nose. If he feels there is mucus/secretions in his nose, he should simply sniff it back and spit it out. Also, if he has to sneeze, he should do so with his mouth open to allow the force of this of the sneeze to project through his mouth and not through his nose. He is to avoid taking any aspirin products until further notice. I have requested the nursing staff to give the patient the remaining Afrin nasal spray that he has been using to take home and the patient should be instructed to use this 2 puffs in each nostril twice daily until it is completely gone. I asked the patient that if he does run out, if he would kindly go to any drug store and buy another bottle and stay on this until I see him in my office approximately 1 week from now. I gave the patient 1 of my business cards and he placed it in his wallet. If he is not going until tomorrow, I will try and make sure that my office calls over to the hospital to get him an appointment. YOLANDA / HARJEET: [id number] / [email or web address]
[2020-12-21] MEDS: THIAMINE 100 MG TAB PO SCH ×2 (06:32→16:34)
[2020-12-21] MEDS: FOLIC ACID 1 MG TAB PO SCH (08:24)
[2020-12-21] MEDS: OXYMETAZOLINE 0.05% NASL SPRAY 1 SPRAY BOTTLE NASAL SCH ×2 (08:25→21:15)
[2020-12-21] MEDS: AMPICILLIN-SULBACTAM 1.5 GM in SODIUM CHLORIDE 0.9% 50 ML IVPB SCH ×3 (08:25→23:04)
[2020-12-21] MEDS: lisinopriL 20 MG TAB PO SCH (08:25)
[2020-12-21] MEDS: PANTOPRAZOLE 40 MG TABLET PO SCH ×2 (08:25→21:14)
[2020-12-21] MEDS: busPIRone HCl 5 MG TAB PO SCH ×2 (08:25→21:14)
[2020-12-21 09:01] LABS: Anisocytosis Slight; HCT 27.4 % (39.0-53.0); HGB 8.8 gm/dL (13.0-17.5); MCH 32.7 pg (25.0-35.0); MCHC 32.3 g/dL (31.0-37.0); MCV 101.4 fL (80.0-100.0); Macrocytosis Slight; Mean Platelet Volume 6.9; Platelet Count 434 k/uL (150-450); RDW 17.5 % (11.5-15.5); WBC 4.9 k/uL (3.8-10.6)
[2020-12-21 09:09] LABS: African American GFR (CKD) >90 (>60 ml/min/1.73 sqM); Anion Gap 6 mmol/L; Blood Urea Nitrogen 9 mg/dL (9-20); Calcium 9.2 mg/dL (8.4-10.2); Carbon Dioxide 27 mmol/L (22-30); Chloride 108 mmol/L (98-107); Glucose 93 mg/dL (74-99); Magnesium 1.9 mg/dL (1.6-2.3); Non-African American GFR(CKD) >90 (>60 ml/min/1.73 sqM); Potassium 3.7 mmol/L (3.5-5.1); Sodium 141 mmol/L (137-145)
[2020-12-21] MEDS: SERTRALINE 100 MG TAB PO SCH (12:55)
--- NOTE | 2020-12-21 14:23 | P.DS ---
<Daniel Deluca - Last Filed: 12/21/20 13:55> Providers Expected date of discharge: 12/21/20 Hospital Course: Discharge Diagnosis: Epistaxis resulting in acute blood loss anemia EtOH abuse with withdrawal Hypomagnesemia, resolved Hypokalemia, resolved Hospital Course: Patient is a 59-year-old male with a past medical history of anxiety and EtOH dependence/abuse. Patient presented to the emergency department with a chief complaint of bleeding from nose. Patient reports he awoke in his bed and noticed that his nose was bleeding, patient states he made multiple attempts to stop the bleeding but was unsuccessful so he came to the emergency department. Patient denies any known injuries or falls. Patient does admit to EtOH use last night as well as long-standing history of alcohol use/abuse with difficult detoxes. Patient would not be specific with amount he drinks daily. Patient denies history of intubation from detox. In ED patient had a Rhino Rocket placed in right nares, was given 1 dose of Rocephin, and lab work was completed. CBC revealed stable hemoglobin of 12.2. BMP revealed mild hyponatremia with sodium of 132, hypokalemia with potassium of 3.2, and hypomagnesemia with magne sium of 1.3. EtOH <10. Patient was admitted under our services with consultation to ENT. Patient underwent CT of brain which was negative for acute intracranial process and CT facial bones without contrast which revealed nondisplaced fractures at the floor of the right orbit without blowout component, Nondisplaced fractures noted to involve the lateral wall of the right maxillary sinus and posterior wall, and No significant displacement noted. Patient did have significant blood loss resulting from uncontrolled epistaxis and hemoglobin decreasing to 7.1 from initial 12.2. Patient received 1 unit PRBCs and was taken to the OR with Dr. Morales on 12/18/20 for cauterization. Hemoglobin has since remained stable since cauterization was completed, patient was treated for EtOH withdrawal, hypomagnesemia, and hypokalemia. Patient is stable for discharge at this time and has been fully weaned off of withdrawal medications. Secondary to patient's weakness and inability to ambulate without assistance, he is being discharged to extended care facility where he will receive PT/OT services. Physical exam: Patient seen and fully evaluated at bedside this morning. He was sitting up in bed eating breakfast at this time.. Librium discontinued this morning. Patient has been fully weaned from all withdrawal medications. He reports continued gen eralized weakness and inability to ambulate without assistance. Patient denies having headache, lightheadedness, dizziness, changes in vision or hearing, chest pains or palpitations, shortness of breath, abdominal pain, nausea, vomiting, or experiencing any weakness/numbness/tingling in his extremities. Postsurgical packing to right nares removed yesterday by ENT, patient has had no further epis odes of epistaxis. General: non toxic, no distress, appears at stated age Derm: warm, dry. Large bruise to left shoulder multiple bruises in different stages of healing to bilateral lower extremities and left hip. Head: atraumatic, normocephalic, symmetric EEN: Eyes: EOMI, no lid lag, anicteric sclera Ears: normal. Nose: Mouth: no lip lesion, mucus membranes moist. Cardiovascular: S1S2 normal with regular rate and rhythm. No murmurs, gallops, or rubs noted. Posterior tibial pulses palpated bilaterally. Cap refill less than 2 seconds. Lungs: Respirations even, regular, and unlabored on 3 L O2 via nasal cannula. Lungs clear to auscultation bilaterally. No wheezes, rhonchi, or rales noted. No accessory muscle use. Abdominal: soft, nontender to palpation, no guarding, no appreciable organomegaly Ext: no gross muscle atrophy, no edema, no contractures Neuro: CN II-XI grossly intact, no focal neuro deficits. Patient appears to be doing much better, minimal withdrawal signs today, slight tremors no diaphoresis and appears to be resting comfortably. Psych: Alert with appropriate affect A total of 45 minutes of time were spent preparing this complex discharge summary. Assessment: I reviewed the documentation as provided by the DOMINIQUE above, who is the original author of this note. I agree with the documented assessment and plan, with the following changes: None Patient Condition at Discharge: Fair Plan - Discharge Summary Discharge Rx Participant: No New Discharge Prescriptions: New Thiamine [Vitamin B-1] 100 mg PO BID-W/MEALS 30 Days #60 tab Amoxicillin/Potassium Clav [Augmentin 875-125 Tablet] 1 tab PO Q12HR 3 Days #6 tab Folic Acid 1 mg PO DAILY 30 Days #30 tab Continue Sertraline HCl [Zoloft] 200 mg PO DAILY@1400 LORazepam [Ativan] 0.5 mg PO BID PRN PRN Reason: Anxiety Atorvastatin [Lipitor] 20 mg PO HS lisinopriL 20 mg PO DAILY Naltrexone HCl [Revia] 50 mg PO DAILY Aspirin EC [Ecotrin Low Dose] 81 mg PO DAILY traZODone HCL [Desyrel] 50 mg PO HS busPIRone HCL [Buspar] 7.5 mg PO BID Discharge Medication List Sertraline HCl [Zoloft] 200 mg PO DAILY@1400 05/17/18 [History] Atorvastatin [Lipitor] 20 mg PO HS 07/19/19 [History] LORazepam [Ativan] 0.5 mg PO BID PRN 07/19/19 [History] lisinopriL 20 mg PO DAILY 07/19/19 [History] Aspirin EC [Ecotrin Low Dose] 81 mg PO DAILY 12/16/20 [History] Naltrexone HCl [Revia] 50 mg PO DAILY 12/16/20 [History] busPIRone HCL [Buspar] 7.5 mg PO BID 12/16/20 [History] traZODone HCL [Desyrel] 50 mg PO HS 12/16/20 [History] Amoxicillin/Potassium Clav [Augmentin 875-125 Tablet] 1 tab PO Q12HR 3 Days #6 tab 12/21/20 [Rx] Folic Acid 1 mg PO DAILY 30 Days #30 tab 12/21/20 [Rx] Thiamine [Vitamin B-1] 100 mg PO BID-W/MEALS 30 Days #60 tab 12/21/20 [Rx] Follow up Appointment(s)/Referral(s): Jeffrey Savage MD [Primary Care Provider] - 1-2 days Anibal Morales MD [STAFF PHYSICIAN] - 01/13/21 12:30 pm Patient Instructions/Handouts: Nasal Fracture (DC), Abuse of Alcohol (DC) Activity/Diet/Wound Care/Special Instructions: Activity: As tolerated Diet: Heart healthy diet Special Instructions: Strongly advise avoidance of all alcoholic beverages. You have been given resources and verbalized understanding of the assistance available to you if change your mind and would like to go to rehab, also you have been given information on all of the outpatient programs and outpatient assistance available to you. Continued alcohol abuse is likely to lead to significant adverse health effects up to and including . You will need to follow up with Dr. Morales's office next week for follow up on your nasal fractures. It is important for you to complete the remainder of your antibiotics for a complete 7 day course as you are at high risk of infection with your nasal fractures. Discharge Disposition: TRANSFER TO SNF/ECF <Sin Maurer - Last Filed: 12/21/20 18:48> Providers Date of admission: 12/16/20 06:08 Attending physician: Kevin Lozano MD Consults: 12/16/20 11:43 Consult Physician Routine Consulting Provider: Anibal Morales Consult Reason/Comments: EPISTAXIS, RHINO ROCKET IN PLACE Do you want consulting provider notified?: Yes Primary care physician: Feliz Savage
[2020-12-21] MEDS: ATORVASTATIN 20 MG TAB PO SCH (21:14)
[2020-12-21] MEDS: traZODone HCL 50 MG TAB PO SCH (21:14)
[2020-12-22] MEDS: THIAMINE 100 MG TAB PO SCH (06:22)
[2020-12-22] MEDS: busPIRone HCl 5 MG TAB PO SCH (08:52)
[2020-12-22] MEDS: PANTOPRAZOLE 40 MG TABLET PO SCH (08:53)
[2020-12-22] MEDS: OXYMETAZOLINE 0.05% NASL SPRAY 1 SPRAY BOTTLE NASAL SCH (08:53)
[2020-12-22] MEDS: AMPICILLIN-SULBACTAM 1.5 GM in SODIUM CHLORIDE 0.9% 50 ML IVPB SCH (08:53)
[2020-12-22] MEDS: lisinopriL 20 MG TAB PO SCH (08:53)
[2020-12-22] MEDS: FOLIC ACID 1 MG TAB PO SCH (08:53)
--- NOTE | 2020-12-22 09:43 | P.DS ---
Providers Date of admission: 12/16/20 06:08 Expected date of discharge: 12/22/20 Attending physician: Kevin Lozano MD Consults: 12/16/20 11:43 Consult Physician Routine Consulting Provider: Anibal Morales Consult Reason/Comments: EPISTAXIS, RHINO ROCKET IN PLACE Do you want consulting provider notified?: Yes Primary care physician: [facility] Course: Hospital Course: Patient is a 59-year-old male with a past medical history of anxiety and EtOH dependence/abuse. Patient presented to the emergency department with a chief complaint of bleeding from nose. In ED patient had a Rhino Rocket placed in right nares, was given 1 dose of Rocephin, and lab work was completed. CBC revealed stable hemoglobin of 12.2. BMP revealed mild hyponatremia with sodium of 132, hypokalemia with potassium of 3.2, and hypomagnesemia with magnesium of 1.3. EtOH <10. Patient was admitted under our services with consultation to ENT. Patient underwent CT of brain which was negative for acute intracranial process and CT facial bones without contrast which revealed nondisplaced fractures at the floor of the right orbit without blowout component, Nondisplaced fractures noted to involve the lateral wall of the right maxillary sinus and posterior wall, and No significant displacement noted. Patient did have significant blood loss resulting from uncontrolled epistaxis and hemoglobin decreasing to 7.1 from initial 12.2. Patient received 1 unit PRBCs and was taken to the OR with Dr. Morales on 12/18/20 for cauterization. Hemoglobin has since remained stable since cauterization was completed, patient was treated for EtOH withdrawal, hypomagnesemia, and hypokalemia. Patient is stable for discharge at this time and has been fully weaned off of withdrawal medications. Secondary to patient's weakness and inability to ambulate without assistance, he is being discharged to extended care facility where he will receive PT/OT services. Patient Condition at Discharge: Fair Plan - Discharge Summary Discharge Rx Participant: No New Discharge Prescriptions: New Thiamine [Vitamin B-1] 100 mg PO BID-W/MEALS 30 Days #60 tab Amoxicillin/Potassium Clav [Augmentin 875-125 Tablet] 1 tab PO Q12HR 3 Days #6 tab Folic Acid 1 mg PO DAILY 30 Days #30 tab Continue Sertraline HCl [Zoloft] 200 mg PO DAILY@1400 LORazepam [Ativan] 0.5 mg PO BID PRN PRN Reason: Anxiety Atorvastatin [Lipitor] 20 mg PO HS lisinopriL 20 mg PO DAILY Naltrexone HCl [Revia] 50 mg PO DAILY Aspirin EC [Ecotrin Low Dose] 81 mg PO DAILY traZODone HCL [Desyrel] 50 mg PO HS busPIRone HCL [Buspar] 7.5 mg PO BID Discharge Medication List Sertraline HCl [Zoloft] 200 mg PO DAILY@1400 05/17/18 [History] Atorvastatin [Lipitor] 20 mg PO HS 07/19/19 [History] LORazepam [Ativan] 0.5 mg PO BID PRN 07/19/19 [History] lisinopriL 20 mg PO DAILY 07/19/19 [History] Aspirin EC [Ecotrin Low Dose] 81 mg PO DAILY 12/16/20 [History] Naltrexone HCl [Revia] 50 mg PO DAILY 12/16/20 [History] busPIRone HCL [Buspar] 7.5 mg PO BID 12/16/20 [History] traZODone HCL [Desyrel] 50 mg PO HS 12/16/20 [History] Amoxicillin/Potassium Clav [Augmentin 875-125 Tablet] 1 tab PO Q12HR 3 Days #6 tab 12/21/20 [Rx] Folic Acid 1 mg PO DAILY 30 Days #30 tab 12/21/20 [Rx] Thiamine [Vitamin B-1] 100 mg PO BID-W/MEALS 30 Days #60 tab 12/21/20 [Rx] Follow up Appointment(s)/Referral(s): Jeffrey Savage MD [Primary Care Provider] - 1-2 days Anibal Morales MD [STAFF PHYSICIAN] - 01/13/21 12:30 pm Patient Instructions/Handouts: Nasal Fracture (DC), Abuse of Alcohol (DC) Activity/Diet/Wound Care/Special Instructions: Activity: As tolerated Diet: Heart healthy diet Special Instructions: Strongly advise avoidance of all alcoholic beverages. You have been given resources and verbalized understanding of the assistance available to you if change your mind and would like to go to rehab, also you have been given information on all of the outpatient programs and outpatient assistance available to you. Continued alcohol abuse is likely to lead to significant adverse health effects up to and including . You will need to follow up with Dr. Morales's office next week for follow up on your nasal fractures. It is important for you to complete the remainder of your antibiotics for a complete 7 day course as you are at high risk of infection with your nasal fractures. Discharge Disposition: TRANSFER TO SNF/ECF
[2020-12-22 13:13] VITALS: BP 98/60; PULSE 108; RESP 16; TEMP 98
[2020-12-22] MEDS: SERTRALINE 100 MG TAB PO SCH (13:14)
[2020-12-22 13:30] VITALS: BMI 25.4
== END 2020-12-22 15:00 | DRG 155 ==
LOC: EC 04:37 → 3SCARD 06:08
PROVIDERS: ADMIT Internal Medicine; ATTEND Internal Medicine
PROC: 2Y41X5Z Packing of Nasal Region using Packing Material (ICD-10-PCS; 2020-12-16)
PROC: 30233N1 Transfusion of Nonautologous Red Blood Cells into Peripheral Vein, Percutaneous Approach (ICD-10-PCS; 2020-12-16)
PROC: 093K7ZZ Control Bleeding in Nasal Mucosa and Soft Tissue, Via Natural or Artificial Opening (ICD-10-PCS; principal; 2020-12-17 07:30)
DX: S01.21XA Laceration without foreign body of nose, initial encounter (principal); S02.40CA Maxillary fracture, right side, initial encounter for closed fracture; D62 Acute posthemorrhagic anemia; E87.1 Hypo-osmolality and hyponatremia; F10.239 Alcohol dependence with withdrawal, unspecified; S02.2XXA Fracture of nasal bones, initial encounter for closed fracture; D69.1 Qualitative platelet defects; Z20.822 Contact with and (suspected) exposure to COVID-19; J34.2 Deviated nasal septum; S40.012A Contusion of left shoulder, initial encounter; S80.12XA Contusion of left lower leg, initial encounter; S80.11XA Contusion of right lower leg, initial encounter; E78.5 Hyperlipidemia, unspecified; I10 Essential (primary) hypertension; E83.42 Hypomagnesemia; E87.6 Hypokalemia; K21.9 Gastro-esophageal reflux disease without esophagitis; G47.30 Sleep apnea, unspecified; F41.9 Anxiety disorder, unspecified; Z79.82 Long term (current) use of aspirin; Z79.899 Other long term (current) drug therapy; Z87.19 Personal history of other diseases of the digestive system; Z87.2 Personal history of diseases of the skin and subcutaneous tissue; Z71.41 Alcohol abuse counseling and surveillance of alcoholic; Z98.890 Other specified postprocedural states; Z80.1 Family history of malignant neoplasm of trachea, bronchus and lung; Z83.3 Family history of diabetes mellitus; Z82.0 Family history of epilepsy and other diseases of the nervous system; W19.XXXA Unspecified fall, initial encounter; Y92.009 Unspecified place in unspecified non-institutional (private) residence as the place of occurrence of the external cause
CPT/HCPCS: 36415; 70450; 70486; 71045; 72170; 80048; 80053; 80306; 80320; 82140; 83690; 83735; 84100; 84484; 85025; 85027; 85610; 85730; 86850; 86900; 86901; 86920; 87635; 94660; 94760; 96361; 96372; 96374; 96375; 99285

== ENCOUNTER 2021-03-17 06:59 | Day surgery (SDC) | payer BC ==
[2021-03-14 13:38] VITALS: BMI 25.9
[~2021-03-17 06:59] MED LIST: LACTATED RINGERS 1,000 ML IV SCH
[2021-03-17 07:21] VITALS: TEMP 97.6
[2021-03-17] MEDS ORDERED: PROPOFOL 10 MG/ML 20 ML VIAL IV ONE (07:21)
[2021-03-17 07:41] VITALS: RESP 18
--- NOTE | 2021-03-17 08:00 | PCN ---
PROCEDURE NOTE DATE OF PROCEDURE: 03/17/2021. PREOP DIAGNOSIS: Unexplained anemia. POSTOP DIAGNOSIS: Unexplained anemia. PROCEDURE: Bone marrow aspirate and biopsy. SITE: Right iliac crest. ANESTHESIA: Local with IV systemic sedation. DETAILS: Utilizing sterile technique, the skin overlying the right iliac crest were prepared with Betadine and alcohol. After adequate sterile draping, local anesthesia with 1% lidocaine and systemic sedation size 11 4 inch Jamshidi needle was utilized to access the periosteum with ease. A total of 15 mL of aspirate and 3 cm bone core biopsies were obtained. The patient tolerated the procedure very well. There was no immediate procedure related complications. TOTAL BLOOD LOSS: Less than 1 mL. Results pending. MMODL / IJN: [id number] /
[2021-03-17 08:09] VITALS: BP 117/76; PULSE 98
[2021-03-17 11:53] LABS: Anisocytosis Moderate; Basophils % (A) 0 %; Eosinophils # (A) 0.1 k/uL (0-0.7); Eosinophils % (A) 1 %; HCT 27.9 % (39.0-53.0); HGB 8.7 gm/dL (13.0-17.5); Hypochromasia Slight; Lymphocytes # (A) 2.3 k/uL (1.0-4.8); Lymphocytes % (A) 29 %; MCH 23.9 pg (25.0-35.0); MCV 76.9 fL (80.0-100.0); Mean Platelet Volume 7.9; Microcytosis Moderate; Monocytes # (A) 0.4 k/uL (0-1.0); Monocytes % (A) 5 %; Neutrophils % (A) 63 %; Platelet Count 271 k/uL (150-450); Poikilocytosis Slight; RBC 3.63 m/uL (4.30-5.90); RDW 21.6 % (11.5-15.5); WBC 7.9 k/uL (3.8-10.6)
[2021-03-17 12:26] LABS: Reticulocyte % 2.1 % (0.5-2.0)
== END 2021-03-17 08:24 | disposition home or self-care (01) ==
LOC: OR 06:59
PROVIDERS: ATTEND Internal Medicine Hematology & Oncology
DX: D50.9 Iron deficiency anemia, unspecified (principal); Z79.82 Long term (current) use of aspirin; Z79.899 Other long term (current) drug therapy; E78.5 Hyperlipidemia, unspecified; I10 Essential (primary) hypertension; K21.9 Gastro-esophageal reflux disease without esophagitis; G47.33 Obstructive sleep apnea (adult) (pediatric)
CPT/HCPCS: 85025; 85045; 38222; J2704

== ENCOUNTER → 2021-07-19 | Day surgery (SDC) | payer BC ==
[2021-07-15 13:37] VITALS: BMI 25.0
[~2021-07-19] MED LIST changes: +IV FLUID CONTINUATION 1,000 ML IV ONE; -LACTATED RINGERS 1,000 ML IV SCH; +LIDOCAINE 1% (10MG/ML) FOR IV START INTRADERMA PRN; +PROPOFOL 10 MG/ML 20 ML VIAL IV ONE
[2021-07-19 11:07] VITALS: TEMP 97.4
[2021-07-19] MEDS: LACTATED RINGERS 1,000 ML IV SCH ×2 (11:12→11:53)
--- NOTE | 2021-07-19 12:05 | P.GSHP ---
History of Present Illness H&P Date: 07/19/21 Chief Complaint: Anemia, screening Patient here today for upper and lower endoscopy. Patient recently on to be significantly anemic with a hemoglobin of 8.7. Had a bone marrow biopsy performed. Apparently was recently told he had a cancerous lymph node in his neck. Scheduled have that removed. No rectal bleeding or melena. Here for upper and lower endoscopy. Past Medical History Past Medical History: Cancer, GERD/Reflux, Hyperlipidemia, Hypertension, Sleep Apnea/CPAP/BIPAP Additional Past Medical History / Comment(s): no home cpap use. ELEVATED LIVER ENZYMES . PAPILLARY CARCINOMA , History of Any Multi-Drug Resistant Organisms: None Reported Past Surgical History: Hernia Repair Additional Past Surgical History / Comment(s): biopsy on lump on right neck- Past Anesthesia/Blood Transfusion Reactions: No Reported Reaction Smoking Status: Never smoker - Past Family History Mother Family Medical History: Cancer Father Family Medical History: Diabetes Mellitus Additional Family Medical History / Comment(s): history of seizures Medications and Allergies Home Medications Medication Instructions Recorded Confirmed Type Sertraline HCl [Zoloft] 100 mg PO DAILY@1400 05/17/18 07/19/21 History Atorvastatin [Lipitor] 20 mg PO HS 07/19/19 07/19/21 History lisinopriL 20 mg PO DAILY 07/19/19 07/19/21 History Aspirin EC [Ecotrin Low Dose] 81 mg PO DAILY 12/16/20 07/15/21 History Naltrexone HCl [Revia] 50 mg PO DAILY 12/16/20 07/19/21 History busPIRone HCL [Buspar] 7.5 mg PO BID 12/16/20 07/19/21 History traZODone HCL [Desyrel] 50 mg PO HS 12/16/20 07/19/21 History Folic Acid 1 mg PO DAILY 30 Days #30 tab 12/21/20 07/19/21 Rx Thiamine [Vitamin B-1] 100 mg PO BID-W/MEALS 30 Days #60 12/21/20 07/15/21 Rx tab LORazepam [Ativan] 0.5 mg PO BID PRN #6 tab 12/22/20 07/19/21 Rx Multivitamins, Thera [Multivitamin 1 tab PO DAILY 03/14/21 07/19/21 History (formulary)] Ferrous Sulfate [Feosol] 325 mg PO DAILY 07/15/21 07/15/21 History Multivitamins, Thera [Multivitamin 1 tab PO DAILY 07/15/21 07/15/21 History (formulary)] Allergies Allergy/AdvReac Type Severity Reaction Status Date / Time No Known Allergies Allergy Verified 07/19/21 11:08 Surgical - Exam Vital Signs Temp Pulse Resp BP Pulse Ox 97.4 F L 108 H 16 116/65 96 07/19/21 11:05 07/19/21 11:05 07/19/21 11:05 07/19/21 11:05 07/19/21 11:05 Physical exam: General: Well-developed, well-nourished HEENT: Normocephalic, sclerae nonicteric Abdomen: Nontender, nondistended Extremities: No edema Neuro: Alert and oriented Assessment and Plan (1) Anemia Narrative/Plan: Will proceed with upper and lower endoscopy Current Visit: Yes Status: Acute Code(s): D64.9 - ANEMIA, UNSPECIFIED SNOMED Code(s): 106105492
--- NOTE | 2021-07-19 12:30 | P.PCN ---
Date of Procedure: 07/19/21 Procedure(s) Performed: PREOPERATIVE DIAGNOSIS: Anemia, screening POSTOPERATIVE DIAGNOSIS: Gastritis, hiatal hernia, Echeverria's esophagus, tortuous colon PROCEDURE: 1. EGD with biopsy 2. Incomplete colonoscopy ANESTHESIA: MAC SURGEON: Laterll Freeman M.D. SPECIMENS: Antrum, Echeverria's esophagus ENDOSCOPIC PROCEDURE: The patient was on the endoscopy table in the left decubitus position. The Olympus gastroscope was inserted into the oropharynx and passed under direct visualization to the region of the third portion of the duodenum. From that point the scope was slowly withdrawn inspecting all surfaces carefully. There were no neoplastic inflammatory or polypoid lesions throughout the duodenum. The pylorus was widely patent. The stomach was carefully inspected. There was gastritis present. A biopsy of the antrum took place to rule out H. pylori. Retroflexion revealed a small to moderate sized hiatal hernia. Distal esophagus revealed a 3-4 cm segment of Echeverria's esophagus without inflammatory changes or ulcerations. Random biopsies of the Echeverria's esophagus took place. The proximal esophagus appear normal. The patient was kept on the endoscopy table in the left decubitus position. The Olympus colonoscope was inserted into the anus and passed under direct visualization to the mid sigmoid colon. We could not advance beyond a tight turn in the mid to proximal sigmoid colon. There was no mucosal abnormalities present there. There was no visible diverticulosis. The scope was withdrawn. Digital rectal examination was normal. The patient was taken to the recovery room in stable condition per anesthesia guidelines. RECOMMENDATIONS: Await biopsy results. Will discuss possible barium enema with patient to complete lower GI workup.
[2021-07-19 12:53] VITALS: PULSE 69
[2021-07-19 13:55] VITALS: BP 104/69; RESP 18
--- NOTE | 2021-07-19 16:27 | FL ---
EXAMINATION TYPE: FL barium enema DATE OF EXAM: 07/19/2021 COMPARISON: NONE HISTORY: Incomplete colonoscopy today. TECHNIQUE: A double contrast barium enema study is performed. A total of 1 minute 35 seconds of flu oroscopic time was utilized during procedure and 23 images obtained. FINDINGS: [employer] Flat[employer] view of the abdomen shows overall non-obstructive bowel gas pattern. Colon is then successfully filled to the cecum. Exam is suboptimal as there is leak of contrast from rectum causing some artifact on images obtained in addition there is redundancy of the sigmoid colon making evaluation suboptimal as there are overlapping bowel loops present. There was some spasm in th e proximal right transverse colon which cleared on repeat imaging, similar finding noted in the dista l transverse colon on delayed overhead images. No evidence of obstructing or constricting lesion thro ughout the colon. No significant diverticular disease is noted. Appendix was filled and appeared normal. The terminal ileum was refluxed on delayed overhead imaging appearing unremarkable. IMPRESSION: Suboptimal study but successful filling to the cecum without obstructing or constricting mass or neoplasm.
== END ==
LOC: ORWHC2ENDO 10:37
PROVIDERS: ATTEND Surgery
DX: K29.70 Gastritis, unspecified, without bleeding (principal); K44.9 Diaphragmatic hernia without obstruction or gangrene; K22.70 Barrett's esophagus without dysplasia
CPT/HCPCS: 45378; 43239; 74270; J2704; 88305

== ENCOUNTER → 2021-08-24 | Outpatient (CLI) | payer BC ==
--- NOTE | 2021-08-24 11:39 | US ---
EXAMINATION TYPE: US thyroid st tissue head/neck DATE OF EXAM: 08/24/2021 COMPARISON: NONE CLINICAL HISTORY: C73 Thyroid CA. Patient states he currently has thyroid cancer with imaging and bio psy done at [facility]. Patient states he is having surgery beginning of August. GLAND SIZE: Right Lobe: 4.3 x 1.5 x 1.8 cm Overall Parenchyma: heterogenous Left Lobe: 5.0 x 3.3 x 3.0 cm Overall Parenchyma: heterogeneous Isthmus Thickness: 0.4 cm NODULES RIGHT: # of nodules measured on right: 0 LEFT: # of nodules measured on left: 1 1. 4.4 X 3.2 x 2.7 cm, mid , solid or almost completely solid, hypoechoic nodule, which is wider th an tall, with smooth margins, without echogenic foci. Prior size: No prior ISTHMUS: # of nodules measured in the isthmus: 0 Bilateral neck scanned. Left lateral superior to thyroid prominent heterogenous thyroid = 2.2 x 0.6 x 0.7 cm. IMPRESSION: Solid left thyroid nodule compatible with the provided history of thyroid carcinoma.
== END | disposition home or self-care (01) ==
LOC: RADUSWWP 10:43
PROVIDERS: ATTEND Otolaryngology
DX: C73 Malignant neoplasm of thyroid gland (principal)
CPT/HCPCS: 76536

== ENCOUNTER 2022-02-14 14:32 | Emergency (ER) | payer BC, OTHER ==
[2022-02-14 14:55] VITALS: BP 117/84; PULSE 74; RESP 16; TEMP 98.5
[2022-02-14] MEDS ORDERED: DIPH,PERTUS(ACELL)TETVAC-LF 0.5 ML VIAL IM ONE (15:08)
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
== END 2022-02-14 15:35 | disposition home or self-care (01) ==
LOC: EC 14:32
DX: T22.212A Burn of second degree of left forearm, initial encounter (principal); T31.0 Burns involving less than 10% of body surface; Z23 Encounter for immunization; K21.9 Gastro-esophageal reflux disease without esophagitis; E78.5 Hyperlipidemia, unspecified; I10 Essential (primary) hypertension; F41.9 Anxiety disorder, unspecified; E07.9 Disorder of thyroid, unspecified; Z79.82 Long term (current) use of aspirin; X19.XXXA Contact with other heat and hot substances, initial encounter; W01.0XXA Fall on same level from slipping, tripping and stumbling without subsequent striking against object, initial encounter; Y93.89 Activity, other specified
CPT/HCPCS: 90471; 90715; 99284

== ENCOUNTER → 2023-04-13 | Outpatient (CLI) | payer BC ==
--- NOTE | 2023-04-13 12:33 | CT ---
EXAMINATION TYPE: CT angio chest DATE OF EXAM: 04/13/2023 COMPARISON: 10/02/2022 HISTORY: 62-year-old male I71.20 Thoracic Aortic Aneurysm TECHNIQUE: Contiguous axial scanning of the chest performed without and with IV Contrast, patient inj ected with 100 ml mL of Isovue 370. Delayed coronal/sagittal MIP reconstructions performed. 3-D recon structions generated on a dedicated independent workstation. CT DLP: 857.1 mGycm Automated exposure control for dose reduction was used. FINDINGS: Heart is normal size with a small anterior basilar pericardial fluid. Scattered three-vessel coronary artery calcifications are present. Aortic root aneurysmal at 4.4 cm, unchanged. Ascending aorta aneurysmal at 4.5 cm versus 4.3 cm, previously. Conventional arch vessel branching anatomy. Borderline ectatic upper descending thoracic aorta 3.0 cm, unchanged. No thoracic lymphadenopathy by CT size criteria. Mild diffuse bronchial wall thickening. No consolida tion or pleural effusion. Visualized upper abdomen shows moderate to severe fatty infiltration of the liver. Tiny hiatal hernia . Old posterior bilateral rib fracture deformities. Bridging anterior endplate spondylosis lower thorac ic spine. Minimal anterior wedging T5. Moderate degenerative disc disease midthoracic spine. IMPRESSION: 1. MILDLY ANEURYSMAL ASCENDING AORTA AT 4.5 CM VERSUS 4.3 CM, PREVIOUSLY. 2. INCIDENTAL MODERATE TO SEVERE FATTY INFILTRATION OF THE LIVER. TINY HIATAL HERNIA.
== END | disposition home or self-care (01) ==
LOC: RADCTMAIN 09:21
PROVIDERS: ATTEND Internal Medicine Interventional Cardiology
DX: I71.21 Aneurysm of the ascending aorta, without rupture (principal); K44.9 Diaphragmatic hernia without obstruction or gangrene
CPT/HCPCS: 71275; Q9967

== ENCOUNTER → 2023-06-13 | Day surgery (SDC) | payer BC ==
[~2023-06-13] MED LIST changes: -IV FLUID CONTINUATION 1,000 ML IV ONE; +LACTATED RINGERS 1,000 ML IV SCH; -LIDOCAINE 1% (10MG/ML) FOR IV START INTRADERMA PRN; -PROPOFOL 10 MG/ML 20 ML VIAL IV ONE
== END ==
LOC: ORWHC2ENDO 12:17
PROVIDERS: ATTEND Internal Medicine Gastroenterology
DX: Z53.8 Procedure and treatment not carried out for other reasons (principal)

== ENCOUNTER 2023-07-03 11:03 | Day surgery (SDC) | payer BC ==
[2023-07-02 12:48] VITALS: BMI 25.7
[2023-07-03] MEDS: LACTATED RINGERS 1,000 ML IV SCH ×2 (12:13→12:51)
[2023-07-03 12:16] VITALS: TEMP 98.7
[2023-07-03] MEDS ORDERED: PROPOFOL 10 MG/ML 20 ML VIAL IV ONE (12:52)
--- NOTE | 2023-07-03 13:18 | P.PCN ---
Date of Procedure: 07/03/23 Procedure(s) Performed: BRIEF HISTORY: Patient is a 62-year-old pleasant white male scheduled for an elective colonoscopy as a part of evaluation of prior history of colon polyps PROCEDURE PERFORMED: Colonoscopy. PREOPERATIVE DIAGNOSIS: Prior history of colon polyps. . IV sedation per Anesthesia. PROCEDURE: After informed consent was obtained, the patient, was brought into the endoscopy unit. IV sedation was administered by Anesthesia under continuous monitoring. Digital rectal examination was normal. Initially the Olympus CF-160 flexible video colonoscope was then inserted in the rectum, gradually advanced into the cecum with moderate to severe difficulty. Careful examination was performed as the scope was gradually being withdrawn. Ileocecal valve and the appendiceal orifice were visualized and appeared normal. Prep was excellent. Mucosa of the cecum, ascending colon, transverse colon, descending colon, sigmoid colon, and rectum appeared normal. Retroflexion was performed in the rectum and no lesions were seen. The patient tolerated the procedure well. IMPRESSION: Normal-appearing colon from rectum to cecum with no emesis of colorectal neoplasia . RECOMMENDATIONS: Findings of this examination were discussed with the patient as well as his family. He was advised to have a repeat screening colonoscopy in 10 years.
[2023-07-03 13:28] VITALS: RESP 16
[2023-07-03 13:51] VITALS: BP 126/81; PULSE 74
== END 2023-07-03 14:12 | disposition home or self-care (01) ==
LOC: ORWHC2ENDO 11:03
PROVIDERS: ATTEND Internal Medicine Gastroenterology
DX: Z12.11 Encounter for screening for malignant neoplasm of colon (principal); Z86.010 Personal history of colon polyps
CPT/HCPCS: 45378; J2704

== ENCOUNTER 2023-10-23 14:23 | Emergency (ER) | payer BC ==
--- NOTE | 2023-10-23 15:41 | ED ---
Alcohol HPI - General Chief Complaint: Alcohol Stated Complaint: Alcohol Withdrawls Time Seen by Provider: 10/23/23 15:22 Source: patient Mode of arrival: EMS Limitations: no limitations - History of Present Illness Initial Comments: This patient is a 62-year-old man who presents with a complaint that he believes he is experiencing alcohol withdrawal. The patient states that he typically drinks 4 bottles of Chardonnay per day (contrary to nursing note that states two). Patient states that he quit drinking approximately 4 days ago. He is now starting to experience feeling very shaky and anxious. The patient states he sought medical attention was sent from wellness clinic here. The patient currently tolerating oral intake without vomiting. MD Complaint: alcohol withdrawal Time Since Last Drink: 4 -: days(s) Recent Trauma: No Associated Symptoms: diaphoresis, tremors Treatments Prior to Arrival: none Chronic Alcohol Use: Yes - Related Data Home Medications Medication Instructions Recorded Confirmed Sertraline HCl [Zoloft] 100 mg PO DAILY@1400 05/17/18 07/02/23 Atorvastatin [Lipitor] 20 mg PO HS 07/19/19 07/02/23 lisinopriL 20 mg PO DAILY 07/19/19 07/02/23 Aspirin EC [Ecotrin Low Dose] 81 mg PO DAILY 12/16/20 07/03/23 Naltrexone HCl [Revia] 50 mg PO DAILY 12/16/20 07/02/23 busPIRone HCL [Buspar] 7.5 mg PO BID 12/16/20 07/02/23 traZODone HCL [Desyrel] 50 mg PO HS 12/16/20 07/02/23 Multivitamins, Thera [Multivitamin 1 tab PO DAILY 03/14/21 07/03/23 (formulary)] Previous Rx's Medication Instructions Recorded Folic Acid 1 mg PO DAILY 30 Days #30 tab 12/21/20 Thiamine [Vitamin B-1] 100 mg PO BID-W/MEALS 30 Days #60 12/21/20 tab LORazepam [Ativan] 0.5 mg PO BID PRN #6 tab 12/22/20 Omeprazole [PriLOSEC] 20 mg PO AC-BRKFST #90 cap 07/19/21 chlordiazePOXIDE HCl [Librium] 25 mg PO TID 3 Days #9 capsule 10/23/23 Allergies Allergy/AdvReac Type Severity Reaction Status Date / Time No Known Allergies Allergy Verified 07/02/23 12:22 Review of Systems ROS Statement: Those systems with pertinent positive or pertinent negative responses have been documented in the HPI. ROS Other: All systems not noted in ROS Statement are negative. Constitutional: Denies: fever, weakness Eyes: Denies: vision change Respiratory: Denies: cough, dyspnea Cardiovascular: Reports: palpitations. Denies: chest pain, edema, syncope Gastrointestinal: Denies: abdominal pain, vomiting, diarrhea Genitourinary: Denies: dysuria, hematuria Musculoskeletal: Denies: back pain Skin: Denies: rash Neurological: Reports: headache. Denies: weakness, numbness Psychiatric: Reports: anxiety. Denies: depression, homicidal thoughts, suicidal thoughts Past Medical History Past Medical History: Blood Disorder, Cancer, GERD/Reflux, Hyperlipidemia, Hypertension, Seizure Disorder, Thyroid Disorder Additional Past Medical History / Comment(s): thyroid CA, hx seizure aug 2022., anerusym, anemia History of Any Multi-Drug Resistant Organisms: None Reported Past Surgical History: Hernia Repair Additional Past Surgical History / Comment(s): neck lump 1980 benign., nasal surgery, biopsy on lump on right neck-, thyroidectomy Past Anesthesia/Blood Transfusion Reactions: No Reported Reaction Past Psychological History: Anxiety Smoking Status: Never smoker Past Alcohol Use History: Daily Past Drug Use History: None Reported - Past Family History Mother Family Medical History: Cancer Father Family Medical History: Diabetes Mellitus Additional Family Medical History / Comment(s): history of seizures General Exam Limitations: no limitations General appearance: alert, anxious Head exam: Present: atraumatic, normocephalic Eye exam: Present: normal appearance. Absent: scleral icterus, conjunctival injection Neck exam: Present: normal inspection Respiratory exam: Present: normal lung sounds bilaterally. Absent: respiratory distress, wheezes, rales, rhonchi, stridor, accessory muscle use Cardiovascular Exam: Present: normal rhythm, tachycardia, normal heart sounds. Absent: systolic murmur, diastolic murmur, rubs, gallop GI/Abdominal exam: Present: soft. Absent: distended, tenderness, guarding, rebound, rigid, mass Extremities exam: Present: normal inspection, normal capillary refill. Absent: pedal edema, calf tenderness Back exam: Present: normal inspection. Absent: CVA tenderness (R), CVA tenderness (L) Neurological exam: Present: alert Psychiatric exam: Present: anxious. Absent: depressed, agitated, homicidal ideation, suicidal ideation Skin exam: Present: warm, dry, intact, normal color. Absent: rash Course Vital Signs 10/23/23 10/23/23 14:55 19:02 Temperature 98.1 F 98.2 F Pulse Rate 119 H 67 Respiratory 20 18 Rate Blood Pressure 129/87 145/90 O2 Sat by Pulse 97 99 Oximetry Medical Decision Making - Medical Decision Making Was pt. sent in by a medical professional or institution (, PA, HAND II TUBE BENDER, urgent care, hospital, or correction...) When possible be specific @ -[No] Did you speak to anyone other than the patient for history (EMS, parent, family, police, friend...)? What history was obtained from this source @ -[No] Did you review nursing and triage notes (agree or disagree)? Why? @ -[I reviewed and agree with nursing and triage notes] Were old charts reviewed (outside hosp., previous admission, EMS record, old EKG, old radiological studies, urgent care reports/EKG's, correction records)? Report findings @ -[No old charts were reviewed] Differential Diagnosis (chest pain, altered mental status, abdominal pain women, abdominal pain men, vaginal bleeding, weakness, fever, dyspnea, syncope, headache, dizziness, GI bleed, back pain, seizure, CVA, palpatations, mental health, musculoskeletal)? @ -[Differential Mental Health Depression, anxiety, bipolar, psychosis, schizophrenia, borderline personality, situational depression, adjustment disorder, behavioral disorder, brain tumor, malingering, substance abuse, encephalopathy, medication reaction, dementia, hypothyroidism, degenerative neurologic disorder, lupus.... This is not meant to be all-inclusive list EKG interpreted by me (3pts min.). @ -[As above] X-rays interpreted by me (1pt min.). @ -[None done] CT interpreted by me (1pt min.). @ -[None done] U/S interpreted by me (1pt. min.). @ -[None done] What testing was considered but not performed or refused? (CT, X-rays, U/S, labs)? Why? @ -[None] What meds were considered but not given or refused? Why? @ -[None] Did you discuss the management of the patient with other professionals (professionals i.e. , PA, HAND II TUBE BENDER, lab, RT, psych nurse, social organization professor, bending frame operator, teacher, police officer, family service caseworker)? Give summary @ -[No] Was smoking cessation discussed for >3mins.? @ -[No] Was critical care preformed (if so, how long)? @ -[No] Were there social determinants of health that impacted care today? How? (Homelessness, low income, unemployed, alcoholism, drug addiction, transportation, low edu. Level, literacy, decrease access to med. care, half-way, rehab)? @ -[No] Was there de-escalation of care discussed even if they declined (Discuss DNR or withdrawal of care, Hospice)? DNR status @ -[No] What co-morbidities impacted this encounter? (DM, HTN, Smoking, COPD, CAD, Cancer, CVA, ARF, Chemo, Hep., AIDS, mental health diagnosis, sleep apnea, morbid obesity)? @ -[None] Was patient admitted / discharged? Hospital course, mention meds given and route, prescriptions, significant lab abnormalities, going to OR and other pertinent info. @ -[Patient is 62-year-old man who is here to have evaluation for symptoms consistent with alcohol withdrawal. At this point the patient symptoms are controlled. The patient is motivated and would like to try course of Librium. We discussed that he must not drink alcohol. We discussed appropriate further care and also return parameters. Undiagnosed new problem with uncertain prognosis? @ -[No] Drug Therapy requiring intensive monitoring for toxicity (Heparin, Nitro, Insulin, Cardizem)? @ -[No] Were any procedures done? @ -[No] Diagnosis/symptom? @ -[Acute alcohol withdrawal Acute, or Chronic, or Acute on Chronic? @ -[Acute Uncomplicated (without systemic symptoms) or Complicated (systemic symptoms)? @ -[Uncomplicated Side effects of treatment? @ -[No] Exacerbation, Progression, or Severe Exacerbation? @ -[No] Poses a threat to life or bodily function? How? (Chest pain, [place], [place], pneumonia, PE, COPD, DKA, ARF, appy, cholecystitis, CVA, Diverticulitis, Homicidal, Suicidal, threat to staff... and all critical care pts) @ -[Yes there is a threat to life with alcohol withdrawal but patient appears stable to attempt outpatient management we did discuss return parameters - Lab Data Result diagrams: 10/23/23 15:46 10/23/23 15:46 Lab Results 10/23/23 10/23/23 Range/Units 15:46 15:46 WBC 5.5 (3.8-10.6) k/uL RBC 3.48 L (4.30-5.90) m/uL Hgb 12.3 L (13.0-17.5) gm/dL Hct 36.2 L (39.0-53.0) % MCV 104.0 H (80.0-100.0) fL MCH 35.3 H (25.0-35.0) pg MCHC 33.9 (31.0-37.0) g/dL RDW 14.0 (11.5-15.5) % Plt Count 255 (150-450) k/uL MPV 7.8 Neutrophils % 81 % Lymphocytes % 12 % Monocytes % 6 % Eosinophils % 1 % Basophils % 0 % Neutrophils # 4.4 (1.3-7.7) k/uL Lymphocytes # 0.6 L (1.0-4.8) k/uL Monocytes # 0.3 (0-1.0) k/uL Eosinophils # 0.0 (0-0.7) k/uL Basophils # 0.0 (0-0.2) k/uL Macrocytosis Slight Sodium 135 L (137-145) mmol/L Potassium 3.7 (3.5-5.1) mmol/L Chloride 102 (98-107) mmol/L Carbon Dioxide 25 (22-30) mmol/L Anion Gap 8 mmol/L BUN 11 (9-20) mg/dL Creatinine 0.68 (0.66-1.25) mg/dL Est GFR (CKD-EPI)AfAm >90 (>60 ml/min/1.73 sqM) Est GFR (CKD-EPI)NonAf >90 (>60 ml/min/1.73 sqM) Glucose 101 H (74-99) mg/dL Calcium 9.0 (8.4-10.2) mg/dL Total Bilirubin 1.3 (0.2-1.3) mg/dL AST 56 (17-59) U/L ALT 30 (4-49) U/L Alkaline Phosphatase 180 H (38-126) U/L Total Protein 6.4 (6.3-8.2) g/dL Albumin 4.0 (3.5-5.0) g/dL Serum Alcohol <10 mg/dL Disposition Clinical Impression: Alcohol withdrawal Disposition: HOME SELF-CARE Condition: Fair Instructions (If sedation given, give patient instructions): Alcohol Withdrawal (ED) Prescriptions: chlordiazePOXIDE HCl [Librium] 25 mg PO TID 3 Days #9 capsule Is patient prescribed a controlled substance at d/c from ED?: Yes Referrals: Jeffrey Savage MD [Primary Care Provider] - 1-2 days
[2023-10-23 16:16] LABS: Basophils % (A) 0 %; Eosinophils % (A) 1 %; HCT 36.2 % (39.0-53.0); HGB 12.3 gm/dL (13.0-17.5); Lymphocytes # (A) 0.6 k/uL (1.0-4.8); Lymphocytes % (A) 12 %; MCH 35.3 pg (25.0-35.0); MCHC 33.9 g/dL (31.0-37.0); Macrocytosis Slight; Mean Platelet Volume 7.8; Monocytes # (A) 0.3 k/uL (0-1.0); Monocytes % (A) 6 %; Neutrophils # (A) 4.4 k/uL (1.3-7.7); Neutrophils % (A) 81 %; Platelet Count 255 k/uL (150-450); RBC 3.48 m/uL (4.30-5.90); WBC 5.5 k/uL (3.8-10.6)
[2023-10-23] MEDS: SODIUM CHLORIDE 0.9% 500 ML 500 ML IV STA (16:25)
--- NOTE | 2023-10-23 16:26 | XR ---
EXAMINATION TYPE: XR chest 1V portable DATE OF EXAM: 10/23/2023 4:13 PM CLINICAL INDICATION:Male, 62 years old with history of tachycardia; [facility] COMPARISON: Chest radiographs from 08/30/2022 TECHNIQUE: XR chest 1V portable Frontal view of the chest. FINDINGS: Lungs/Pleura: There is no evidence of pleural effusion, focal consolidation, or pneumothorax. Pulmonary vascularity: Unremarkable. Heart/mediastinum: Cardiomediastinal silhouette is unremarkable. Musculoskeletal: No acute osseous pathology. Remote appearing left-sided rib fractures. IMPRESSION: No acute cardiopulmonary disease/process.
[2023-10-23 16:38] LABS: ALT 30 U/L (4-49); AST 56 U/L (17-59); African American GFR (CKD) >90 (>60 ml/min/1.73 sqM); Alcohol <10 mg/dL; Alkaline Phosphatase 180 U/L (38-126); Anion Gap 8 mmol/L; Blood Urea Nitrogen 11 mg/dL (9-20); Carbon Dioxide 25 mmol/L (22-30); Chloride 102 mmol/L (98-107); Glucose 101 mg/dL (74-99); Non-African American GFR(CKD) >90 (>60 ml/min/1.73 sqM); Potassium 3.7 mmol/L (3.5-5.1); Sodium 135 mmol/L (137-145); Total Bilirubin 1.3 mg/dL (0.2-1.3); Total Protein 6.4 g/dL (6.3-8.2)
[2023-10-23] MEDS: chlordiazePOXIDE 25 MG CAP PO STA (16:38)
[2023-10-23] MEDS: LORazepam 1 MG TAB PO STA (16:39)
[2023-10-23] MEDS: SODIUM CHLORIDE 0.9% 1,000 ML IV STA (16:39)
[2023-10-23 19:17] VITALS: BP 145/90; PULSE 67; RESP 18; TEMP 98.2
== END 2023-10-23 19:05 | disposition home or self-care (01) ==
LOC: EC 14:23
DX: F10.939 Alcohol use, unspecified with withdrawal, unspecified (principal)
CPT/HCPCS: 36415; 71045; 80053; 80320; 85025; 96360; 96361; 99285

== ENCOUNTER 2024-03-31 12:36 | Emergency (ER) | payer BC ==
--- NOTE | 2024-03-31 13:40 | ED ---
Fall HPI - General Chief Complaint: Fall Stated Complaint: Fall,facial laceration Time Seen by Provider: 03/31/24 13:35 Source: patient, RN notes reviewed Mode of arrival: ambulatory - History of Present Illness Initial Comments: 63-year-old male presenting for fall 1 hour ago. States he was at the liquor store and his legs gave out and he hit his head on the ground. He has a large laceration above right eyebrow. He states he has a history of anemia which causes him to fall sometimes, and he believes this is why he fell today. He also states he had a seizure 2 years ago with a brain bleed and has "titanium" in his brain. Denies other injuries from the fall. States last alcohol use was yesterday, however is clearly intoxicated upon examination. Denies blood thinne rs. Last tetanus unknown. - Related Data Home Medications Medication Instructions Recorded Confirmed Sertraline HCl [Zoloft] 100 mg PO DAILY@1400 05/17/18 07/02/23 Atorvastatin [Lipitor] 20 mg PO HS 07/19/19 07/02/23 lisinopriL 20 mg PO DAILY 07/19/19 07/02/23 Aspirin EC [Ecotrin Low Dose] 81 mg PO DAILY 12/16/20 07/03/23 Naltrexone HCl [Revia] 50 mg PO DAILY 12/16/20 07/02/23 busPIRone HCL [Buspar] 7.5 mg PO BID 12/16/20 07/02/23 traZODone HCL [Desyrel] 50 mg PO HS 12/16/20 07/02/23 Multivitamins, Thera [Multivitamin 1 tab PO DAILY 03/14/21 07/03/23 (formulary)] Previous Rx's Medication Instructions Recorded Folic Acid 1 mg PO DAILY 30 Days #30 tab 12/21/20 Thiamine [Vitamin B-1] 100 mg PO BID-W/MEALS 30 Days #60 12/21/20 tab LORazepam [Ativan] 0.5 mg PO BID PRN #6 tab 12/22/20 Omeprazole [PriLOSEC] 20 mg PO AC-BRKFST #90 cap 07/19/21 chlordiazePOXIDE HCl [Librium] 25 mg PO TID 3 Days #9 capsule 10/23/23 Allergies Allergy/AdvReac Type Severity Reaction Status Date / Time No Known Allergies Allergy Verified 03/31/24 12:42 Review of Systems ROS Statement: Those systems with pertinent positive or pertinent negative responses have been documented in the HPI. ROS Other: All systems not noted in ROS Statement are negative. Past Medical History Past Medical History: Blood Disorder, Cancer, GERD/Reflux, Hyperlipidemia, Hypertension, Seizure Disorder, Thyroid Disorder Additional Past Medical History / Comment(s): thyroid CA, hx seizure aug 2022., anerusym, anemia History of Any Multi-Drug Resistant Organisms: None Reported Past Surgical History: Hernia Repair Additional Past Surgical History / Comment(s): neck lump 1980 benign., nasal surgery, biopsy on lump on right neck-, thyroidectomy Past Anesthesia/Blood Transfusion Reactions: No Reported Reaction Past Psychological History: Anxiety Smoking Status: Never smoker Past Alcohol Use History: Daily Past Drug Use History: None Reported - Past Family History Mother Family Medical History: Cancer Father Family Medical History: Diabetes Mellitus Additional Family Medical History / Comment(s): history of seizures General Exam Limitations: no limitations General appearance: alert, in no apparent distress Head exam: Present: other (10 cm deep laceration present superior to right eyebrow) Eye exam: Present: normal appearance, PERRL, EOMI. Absent: scleral icterus, conjunctival injection, periorbital swelling Neck exam: Present: normal inspection. Absent: tenderness, meningismus, lymphadenopathy Respiratory exam: Present: normal lung sounds bilaterally. Absent: respiratory distress, wheezes, rales, rhonchi, stridor Cardiovascular Exam: Present: regular rate, normal rhythm, normal heart sounds. Absent: systolic murmur, diastolic murmur, rubs, gallop, clicks Extremities exam: Present: full ROM, normal capillary refill. Absent: normal inspection (3 cm abrasion present on right forearm), tenderness Back exam: Present: normal inspection Neurological exam: Present: alert, oriented X3, other (Patient is clearly intoxicated, slurring words upon examination) Psychiatric exam: Present: normal affect, normal mood Skin exam: Present: warm, dry, intact, normal color. Absent: rash Course Vital Signs 03/31/24 03/31/24 12:37 15:23 Temperature 97.0 F L 98.1 F Pulse Rate 80 71 Respiratory 17 18 Rate Blood Pressure 135/83 126/89 O2 Sat by Pulse 96 99 Oximetry Procedures - Laceration Laceration #1 Consent Obtained: verbal consent Indication: laceration Site: face Size (cm): 10 Description: linear Depth: simple, single layer Anesthetic Used: lidocaine 1%, without epi Amount (mls): 3 Pre-repair: wound explored, irrigated extensively, deep structures intact Type of Sutures: nylon Size of Sutures: 4-0 Number of Sutures: 9 Technique: simple, interrupted Patient Tolerated Procedure: well, no complications Additional Comments: Neurovascular intact status post procedure Medical Decision Making - Medical Decision Making Was pt. sent in by a medical professional or institution (, PA, COSMETIC ACCOUNT COORDINATOR, urgent care, hospital, or longterm...) When possible be specific @ -No Did you speak to anyone other than the patient for history (EMS, parent, family, police, friend...)? What history was obtained from this source @ -No Did you review nursing and triage notes (agree or disagree)? Why? @ -I reviewed and agree with nursing and triage notes Were old charts reviewed (outside hosp., previous admission, EMS record, old EKG, old radiological studies, urgent care reports/EKG's, longterm records)? Report findings @ -No old charts were reviewed Differential Diagnosis (chest pain, altered mental status, abdominal pain women, abdominal pain men, vaginal bleeding, weakness, fever, dyspnea, syncope, headache, dizziness, GI bleed, back pain, seizure, CVA, palpatations, mental health, musculoskeletal)? @ -Differential Syncope: Valvular disease, hypertrophic cardiomyopathy, pulmonary embolism, tamponade, tachycardia, bradycardia, NE, hypovolemia, hemorrhage, dissection, anemia, intracranial hemorrhage, seizure, hypoglycemia, carbon monoxide poisoning, this is not meant to be an all-inclusive list. EKG interpreted by me (3pts min.). @ -As above X-rays interpreted by me (1pt min.). @ -None done CT interpreted by me (1pt min.). @ -CT of head reveals no acute process U/S interpreted by me (1pt. min.). @ -None done What testing was considered but not performed or refused? (CT, X-rays, U/S, labs)? Why? @ -None What meds were considered but not given or refused? Why? @ -None Did you discuss the management of the patient with other professionals (colten henriquez i.eMathieu Burt, ANNE, COSMETIC ACCOUNT COORDINATOR, lab, RT, psych nurse, social services, network support manager, teacher, patient transport officer, showcase trimmer)? Give summary @ -No Was smoking cessation discussed for >3mins.? @ -No Was critical care preformed (if so, how long)? @ -No Were there social determinants of health that impacted care today? How? (Homelessness, low income, unemployed, alcoholism, drug addiction, transportation, low edu. Level, literacy, decrease access to med. care, long term, rehab)? @ -No Was there de-escalation of care discussed even if they declined (Discuss DNR or withdrawal of care, Hospice)? DNR status @ -No What co-morbidities impacted this encounter? (DM, HTN, Smoking, COPD, CAD, Cancer, CVA, ARF, Chemo, Hep., AIDS, mental health diagnosis, sleep apnea, morbid obesity)? @ -None Was patient admitted / discharged? Hospital course, mention meds given and route, prescriptions, significant lab abnormalities, going to OR and other pertinent info. @ -Patient left AGAINST MEDICAL ADVICE. This is a 63-year-old male with history of seizures presenting for facial laceration status post fall 1 hour ago. States he is unsure if he lost consciousness. Denies blood thinners, denies other injuries. He is clearly intoxicated upon examination. There is a 10 cm gaping laceration superior to right eyebrow. Tetanus was updated. Initial laboratory studies including CBC, CMP, lactic acid remarkable for lactic acid of 3.3. Troponin was 0.012. Alcohol blood level was 397. CT of head reveals no acute process. Wound was thoroughly irrigated and 9 sutures were placed. Advised to follow-up in 7 days for suture removal. Repeat lactic is 4.0. I recommend admission at this time as elevated lactic acid is concerning for possible seizure causing fall. Patient declines and decides to leave AGAINST MEDICAL ADVICE. States he will have his ex- pick him up and take him home. Risks of declining admission discussed in detail, and patient shows understanding and agrees. AMA papers were signed and patient was picked up by ex-. Case discussed with Dr. Ceron. Undiagnosed new problem with uncertain prognosis? @ -No Drug Therapy requiring intensive monitoring for toxicity (Heparin, Nitro, Insulin, Cardizem)? @ -No Were any procedures done? @ -No Diagnosis/symptom? @ -Fall, face laceration Acute, or Chronic, or Acute on Chronic? @ -Acute Uncomplicated (without systemic symptoms) or Complicated (systemic symptoms)? @ -Uncomplicated Side effects of treatment? @ -No Exacerbation, Progression, or Severe Exacerbation? @ -No Poses a threat to life or bodily function? How? (Chest pain, USA, NE, pneumonia, PE, COPD, DKA, ARF, appy, cholecystitis, CVA, Diverticulitis, Homicidal, Suicidal, threat to staff... and all critical care pts) @ -Yes - Lab Data Result diagrams: 03/31/24 13:49 03/31/24 13:49 Lab Results 03/31/24 03/31/24 03/31/24 Range/Units 13:49 13:49 13:49 WBC 3.5 L (3.8-10.6) k/uL RBC 3.57 L (4.30-5.90) m/uL Hgb 12.5 L (13.0-17.5) gm/dL Hct 35.8 L (39.0-53.0) % MCV 100.5 H (80.0-100.0) fL MCH 35.1 H (25.0-35.0) pg MCHC 35.0 (31.0-37.0) g/dL RDW 13.3 (11.5-15.5) % Plt Count 301 (150-450) k/uL MPV 6.8 Neutrophils % 50 % Lymphocytes % 35 % Monocytes % 9 % Eosinophils % 3 % Basophils % 1 % Neutrophils # 1.7 (1.3-7.7) k/uL Lymphocytes # 1.2 (1.0-4.8) k/uL Monocytes # 0.3 (0-1.0) k/uL Eosinophils # 0.1 (0-0.7) k/uL Basophils # 0.0 (0-0.2) k/uL Sodium 137 (137-145) mmol/L Potassium 4.0 (3.5-5.1) mmol/L Chloride 100 (98-107) mmol/L Carbon Dioxide 26 (22-30) mmol/L Anion Gap 11 mmol/L BUN 7 L (9-20) mg/dL Creatinine 0.87 (0.66-1.25) mg/dL Est GFR (CKD-EPI)AfAm >90 (>60 ml/min/1.73 sqM) Est GFR (CKD-EPI)NonAf >90 (>60 ml/min/1.73 sqM) Glucose 77 (74-99) mg/dL Lactic Ac Sepsis Rflx Plasma Lactic Acid Jhonatan 3.3 H* (0.7-2.0) mmol/L Calcium 8.8 (8.4-10.2) mg/dL Total Bilirubin 0.8 (0.2-1.3) mg/dL AST 121 H (17-59) U/L ALT 66 H (4-49) U/L Alkaline Phosphatase 96 (38-126) U/L Troponin I (0.000-0.034) ng/mL Total Protein 6.8 (6.3-8.2) g/dL Albumin 4.2 (3.5-5.0) g/dL Serum Alcohol 397 H* mg/dL 03/31/24 03/31/24 03/31/24 Range/Units 13:49 14:30 16:57 WBC (3.8-10.6) k/uL RBC (4.30-5.90) m/uL Hgb (13.0-17.5) gm/dL Hct (39.0-53.0) % MCV (80.0-100.0) fL MCH (25.0-35.0) pg MCHC (31.0-37.0) g/dL RDW (11.5-15.5) % Plt Count (150-450) k/uL MPV Neutrophils % % Lymphocytes % % Monocytes % % Eosinophils % % Basophils % % Neutrophils # (1.3-7.7) k/uL Lymphocytes # (1.0-4.8) k/uL Monocytes # (0-1.0) k/uL Eosinophils # (0-0.7) k/uL Basophils # (0-0.2) k/uL Sodium (137-145) mmol/L Potassium (3.5-5.1) mmol/L Chloride (98-107) mmol/L Carbon Dioxide (22-30) mmol/L Anion Gap mmol/L BUN (9-20) mg/dL Creatinine (0.66-1.25) mg/dL Est GFR (CKD-EPI)AfAm (>60 ml/min/1.73 sqM) Est GFR (CKD-EPI)NonAf (>60 ml/min/1.73 sqM) Glucose (74-99) mg/dL Lactic Ac Sepsis Rflx Y Plasma Lactic Acid Jhonatan 4.0 H* (0.7-2.0) mmol/L Calcium (8.4-10.2) mg/dL Total Bilirubin (0.2-1.3) mg/dL AST (17-59) U/L ALT (4-49) U/L Alkaline Phosphatase (38-126) U/L Troponin I 0.012 (0.000-0.034) ng/mL Total Protein (6.3-8.2) g/dL Albumin (3.5-5.0) g/dL Serum Alcohol mg/dL - EKG Data -: EKG Interpreted by [facility] EKG Comments: EKG reveals normal sinus rhythm with first-degree AV block. Ventricular rate 75 bpm, NE interval 215, QRS duration 100, QT/QTc 404/433 Disposition Clinical Impression: Fall, Laceration of face Disposition: LEFT AGAINST MEDICAL ADVICE Referrals: Jeffrey Savage MD [Primary Care Provider] - 1-2 days Time of Disposition: 18:51
[2024-03-31] MEDS: LIDOCAINE 1% INJ 10MG/ML (20 ML MDV) SQ ONE (13:43)
[2024-03-31] MEDS: DIPH,PERTUS(ACELL)TETVAC-LF 0.5 ML VIAL IM ONE (13:44)
[2024-03-31 14:09] LABS: Basophils % (A) 1 %; Eosinophils # (A) 0.1 k/uL (0-0.7); Eosinophils % (A) 3 %; HCT 35.8 % (39.0-53.0); HGB 12.5 gm/dL (13.0-17.5); Lymphocytes # (A) 1.2 k/uL (1.0-4.8); Lymphocytes % (A) 35 %; MCH 35.1 pg (25.0-35.0); MCV 100.5 fL (80.0-100.0); Mean Platelet Volume 6.8; Monocytes # (A) 0.3 k/uL (0-1.0); Monocytes % (A) 9 %; Neutrophils # (A) 1.7 k/uL (1.3-7.7); Neutrophils % (A) 50 %; Platelet Count 301 k/uL (150-450); RBC 3.57 m/uL (4.30-5.90); RDW 13.3 % (11.5-15.5); WBC 3.5 k/uL (3.8-10.6)
[2024-03-31 14:55] LABS: ALT 66 U/L (4-49); AST 121 U/L (17-59); African American GFR (CKD) >90 (>60 ml/min/1.73 sqM); Albumin 4.2 g/dL (3.5-5.0); Alkaline Phosphatase 96 U/L (38-126); Anion Gap 11 mmol/L; Blood Urea Nitrogen 7 mg/dL (9-20); Calcium 8.8 mg/dL (8.4-10.2); Carbon Dioxide 26 mmol/L (22-30); Chloride 100 mmol/L (98-107); Glucose 77 mg/dL (74-99); Non-African American GFR(CKD) >90 (>60 ml/min/1.73 sqM); Sodium 137 mmol/L (137-145); Total Bilirubin 0.8 mg/dL (0.2-1.3); Total Protein 6.8 g/dL (6.3-8.2)
[2024-03-31 15:07] LABS: Alcohol 397 mg/dL
--- NOTE | 2024-03-31 15:22 | CT ---
EXAMINATION TYPE: CT brain wo con DATE OF EXAM: 03/31/2024 COMPARISON: 223 INDICATION: Head trauma, gash over RT eye, pt fell, denies LOC. DLP: 1209.4 mGycm, Automated exposure control for dose reduction was used. CONTRAST: None CT of the brain is performed utilizing 3 mm thick sections through the posterior fossa and 3 mm thick sections through the remaining calvarium. Study is performed within 24 hours of arrival to the hosp [facility]. No abnormal hyperdensity is present to suggest an acute intracranial hemorrhage. No mass lesion is evident. No acute infarcts are evident. Ventricles and sulci are prominent for the patient age. Paranasal sinuses and mastoid air cells within the [id number] are clear. Prior right craniotomy. No residual subdural hematoma. No fractures identified IMPRESSION: 1. No acute intracranial process. Follow up MRI can be performed as clinically indicated. 2. Chronic right craniotomy changes. No acute osseous abnormality
[2024-03-31 15:26] VITALS: BP 126/89; PULSE 71; RESP 18; TEMP 98.1
== END 2024-03-31 18:03 | disposition left against medical advice (07) ==
LOC: EC 12:36
DX: S01.111A Laceration without foreign body of right eyelid and periocular area, initial encounter (principal); Z23 Encounter for immunization; W01.198A Fall on same level from slipping, tripping and stumbling with subsequent striking against other object, initial encounter; Y92.512 Supermarket, store or market as the place of occurrence of the external cause
CPT/HCPCS: 99284; 90471; 36415; 93005; 80053; 83605; 84484; 85025; 80320; 70450; 90715; 12015; J2001

== ENCOUNTER 2024-04-05 14:14 | Inpatient (IN) | payer BC ==
[2024-04-05 14:40] LABS: Glucose,Whole Blood 118 mg/dL (70-110)
[2024-04-05] MEDS: LORazepam 2 MG/ML INJ IV STA (14:42)
--- NOTE | 2024-04-05 14:43 | ED ---
General Adult HPI - General Chief complaint: Seizure Stated complaint: seizure Time Seen by Provider: 04/05/24 14:16 Source: patient, EMS, RN notes reviewed Mode of arrival: EMS Limitations: altered mental status - History of Present Illness Initial comments: 63 [id number] presents via EMS with seizure, reportedly fell from sofa couch to the ground, denies loss of consciousness. Confirms known history of alcohol use disorder, unsure whether last drink was 2 weeks ago or 2 days ago, unsure whether he takes antiepileptic medications. Significant history of recent alcohol withdrawal, and ED visit where he received sutures about right eyebrow for unknown trauma. Denies shortness of breath, chest pain, palpitations, headache, and neck pain. - Related Data Home Medications Medication Instructions Recorded Confirmed Sertraline HCl [Zoloft] 100 mg PO DAILY@1400 05/17/18 07/02/23 Atorvastatin [Lipitor] 20 mg PO HS 07/19/19 07/02/23 lisinopriL 20 mg PO DAILY 07/19/19 07/02/23 Aspirin EC [Ecotrin Low Dose] 81 mg PO DAILY 12/16/20 07/03/23 Naltrexone HCl [Revia] 50 mg PO DAILY 12/16/20 07/02/23 busPIRone HCL [Buspar] 7.5 mg PO BID 12/16/20 07/02/23 traZODone HCL [Desyrel] 50 mg PO HS 12/16/20 07/02/23 Multivitamins, Thera [Multivitamin 1 tab PO DAILY 03/14/21 07/03/23 (formulary)] Previous Rx's Medication Instructions Recorded Folic Acid 1 mg PO DAILY 30 Days #30 tab 12/21/20 Thiamine [Vitamin B-1] 100 mg PO BID-W/MEALS 30 Days #60 12/21/20 tab LORazepam [Ativan] 0.5 mg PO BID PRN #6 tab 12/22/20 Omeprazole [PriLOSEC] 20 mg PO AC-BRKFST #90 cap 07/19/21 chlordiazePOXIDE HCl [Librium] 25 mg PO TID 3 Days #9 capsule 10/23/23 Allergies Allergy/AdvReac Type Severity Reaction Status Date / Time No Known Allergies Allergy Verified 03/31/24 12:42 Review of Systems ROS Statement: Those systems with pertinent positive or pertinent negative responses have been documented in the HPI. ROS Other: All systems not noted in ROS Statement are negative. Past Medical History Past Medical History: Blood Disorder, Cancer, GERD/Reflux, Hyperlipidemia, Hypertension, Seizure Disorder, Thyroid Disorder Additional Past Medical History / Comment(s): thyroid CA, hx seizure aug 2022., anerusym, anemia History of Any Multi-Drug Resistant Organisms: None Reported Past Surgical History: Hernia Repair Additional Past Surgical History / Comment(s): neck lump 1980 benign., nasal surgery, biopsy on lump on right neck-, thyroidectomy Past Anesthesia/Blood Transfusion Reactions: No Reported Reaction Past Psychological History: Anxiety Smoking Status: Never smoker Past Alcohol Use History: Daily Past Drug Use History: None Reported - Past Family History Mother Family Medical History: Cancer Father Family Medical History: Diabetes Mellitus Additional Family Medical History / Comment(s): history of seizures General Exam Limitations: no limitations General appearance: alert, in no apparent distress Head exam: Present: normocephalic, other (Old laceration to right eye with mcnally tures in place) Eye exam: Present: PERRL, periorbital tenderness. Absent: scleral icterus, conjunctival injection, periorbital swelling Pupils: Present: normal accommodation ENT exam: Present: normal exam, normal oropharynx, mucous membranes moist Neck exam: Present: normal inspection, full ROM. Absent: tenderness, meningismus, lymphadenopathy Respiratory exam: Present: normal lung sounds bilaterally. Absent: respiratory distress, wheezes, rales, rhonchi, stridor Cardiovascular Exam: Present: regular rate, normal rhythm, normal heart sounds. Absent: systolic murmur, diastolic murmur, rubs, gallop, clicks GI/Abdominal exam: Present: soft, normal bowel sounds. Absent: distended, tenderness, guarding, rebound, rigid exam: Present: normal inspection Extremities exam: Present: normal inspection Back exam: Present: normal inspection Neurological exam: Present: alert, oriented X3, CN II-XII intact, reflexes nor mal Psychiatric exam: Present: anxious Skin exam: Present: warm, dry Course Vital Signs 04/05/24 14:15 Temperature 98.8 F Pulse Rate 104 H Respiratory 18 Rate Blood Pressure 164/99 O2 Sat by Pulse 100 Oximetry EKG Findings - EKG Comments: EKG Findings:: EKG performed at 14: 19 sinus tachycardia with a rate of 102 CO 197 QRS 101 QT/QTc 368/427 - EKG Results: EKG: interpreted by OSVALDOD Medical Decision Making - Medical Decision Making Was pt. sent in by a medical professional or institution (ANNE Burt, FINE GRADE BULLDOZER OPERATOR, urgent care, hospital, or long-term...) When possible be specific @ -No Did you speak to anyone other than the patient for history (EMS, parent, family, police, friend...)? What history was obtained from this source @ -EMS and family providing past medical history and current complaint Did you review nursing and triage notes (agree or disagree)? Why? @ -I reviewed and agree with nursing and triage notes Were old charts reviewed (outside hosp., previous admission, EMS record, old EKG, old radiological studies, urgent care reports/EKG's, long-term records)? Report findings @ -Reviewed CT and laboratory studies from 5 days ago including CBC comp alcohol level Differential Diagnosis (chest pain, altered mental status, abdominal pain women, abdominal pain men, vaginal bleeding, weakness, fever, dyspnea, syncope, headache, dizziness, GI bleed, back pain, seizure, CVA, palpatations, mental health, musculoskeletal)? @ -Differential Seizure: Recurrent seizure disorder, febrile seizure, alcohol withdrawal, stimulants, meningitis, encephalitis, intercranial hemorrhage, intracranial tumor, stroke, eclampsia, thyrotoxicosis, hypocalcemia, hyponatremia, hypernatremia, hypomagnesemia, psychogenic, this is not meant to be an all-inclusive list. EKG interpreted by me (3pts min.). @ -As above X-rays interpreted by me (1pt min.). @ -None done CT interpreted by me (1pt min.). @ -None done U/S interpreted by me (1pt. min.). @ -None done What testing was considered but not performed or refused? (CT, X-rays, U/S, labs)? Why? @ -None What meds were considered but not given or refused? Why? @ -None Did you discuss the management of the patient with other professionals (professionals i.e. ANNE Burt, FINE GRADE BULLDOZER OPERATOR, lab, RT, psych nurse, social studies teacher, ticket speculator, teacher, supply requirements officer, caser shoe parts)? Give summary @ -Sound physician for admission Was smoking cessation discussed for >3mins.? @ -No Was critical care preformed (if so, how long)? @ -No Were there social determinants of health that impacted care today? How? (Homelessness, low income, unemployed, alcoholism, drug addiction, transportation, low edu. Level, literacy, decrease access to med. care, retirement, rehab)? @ -No Was there de-escalation of care discussed even if they declined (Discuss DNR or withdrawal of care, Hospice)? DNR status @ -No What co-morbidities impacted this encounter? (DM, HTN, Smoking, COPD, CAD, Cancer, CVA, ARF, Chemo, Hep., AIDS, mental health diagnosis, sleep apnea, morbid obesity)? @ -Alcohol abuse, seizure Was patient admitted / discharged? Hospital course, mention meds given and route, prescriptions, significant lab abnormalities, going to OR and other pertinent info. @ -admitted patient presented for seizure more likely related to alcohol withdrawal patient had alcohol level 405 days ago patient's current alcohol le carlos is negative patient was given Ativan was started on CIWA, benzo withdrawal protocol. Undiagnosed new problem with uncertain prognosis? @ -No Drug Therapy requiring intensive monitoring for toxicity (Heparin, Nitro, Insulin, Cardizem)? @ -No Were any procedures done? @ -No Diagnosis/symptom? @ -Alcohol abuse, alcohol withdrawal seizure Acute, or Chronic, or Acute on Chronic? @ -Acute Uncomplicated (without systemic symptoms) or Complicated (systemic symptoms)? @ -Complicated Side effects of treatment? @ -No Exacerbation, Progression, or Severe Exacerbation? @ -No Poses a threat to life or bodily function? How? (Chest pain, USA, [place], pneumonia, PE, COPD, DKA, ARF, appy, cholecystitis, CVA, Diverticulitis, Homicidal, Suicidal, threat to staff... and all critical care pts) @ -[Yes alcohol withdrawal - Lab Data Result diagrams: 04/05/24 14:38 04/05/24 14:38 Lab Results 04/05/24 04/05/24 04/05/24 Range/Units 14:37 14:38 14:38 WBC 5.3 (3.8-10.6) k/uL RBC 3.48 L (4.30-5.90) m/uL Hgb 12.0 L (13.0-17.5) gm/dL Hct 34.8 L (39.0-53.0) % MCV 100.1 H (80.0-100.0) fL MCH 34.4 (25.0-35.0) pg MCHC 34.4 (31.0-37.0) g/dL RDW 13.4 (11.5-15.5) % Plt Count 264 (150-450) k/uL MPV 7.1 Neutrophils % 74 % Lymphocytes % 17 % Monocytes % 5 % Eosinophils % 2 % Basophils % 1 % Neutrophils # 3.9 (1.3-7.7) k/uL Lymphocytes # 0.9 L (1.0-4.8) k/uL Monocytes # 0.3 (0-1.0) k/uL Eosinophils # 0.1 (0-0.7) k/uL Basophils # 0.0 (0-0.2) k/uL Sodium 134 L (137-145) mmol/L Potassium 3.2 L (3.5-5.1) mmol/L Chloride 97 L (98-107) mmol/L Carbon Dioxide 21 L (22-30) mmol/L Anion Gap 16 mmol/L BUN 13 (9-20) mg/dL Creatinine 1.21 (0.66-1.25) mg/dL Est GFR (CKD-EPI)AfAm 75 (>60 ml/min/1.73 sqM) Est GFR (CKD-EPI)NonAf 64 (>60 ml/min/1.73 sqM) Glucose 116 H (74-99) mg/dL POC Glucose (mg/dL) 118 H (70-110) mg/dL POC Glu Junior Engineer ID Cynthia Ma Calcium 9.5 (8.4-10.2) mg/dL Magnesium 1.5 L (1.6-2.3) mg/dL Total Bilirubin 2.1 H (0.2-1.3) mg/dL AST 79 H (17-59) U/L ALT 48 (4-49) U/L Alkaline Phosphatase 119 (38-126) U/L Total Protein 6.8 (6.3-8.2) g/dL Albumin 4.4 (3.5-5.0) g/dL Serum Alcohol <10 mg/dL Disposition Clinical Impression: Alcohol withdrawal, Alcohol withdrawal seizure Disposition: ADMITTED IP TO THIS HOSP Condition: Fair Referrals: Jeffrey Savage MD [Primary Care Provider] - 1-2 days Time of Disposition: 15:27
[2024-04-05 14:49] LABS: Basophils % (A) 1 %; Eosinophils # (A) 0.1 k/uL (0-0.7); Eosinophils % (A) 2 %; HCT 34.8 % (39.0-53.0); Lymphocytes # (A) 0.9 k/uL (1.0-4.8); Lymphocytes % (A) 17 %; MCH 34.4 pg (25.0-35.0); MCHC 34.4 g/dL (31.0-37.0); MCV 100.1 fL (80.0-100.0); Mean Platelet Volume 7.1; Monocytes # (A) 0.3 k/uL (0-1.0); Monocytes % (A) 5 %; Neutrophils # (A) 3.9 k/uL (1.3-7.7); Neutrophils % (A) 74 %; Platelet Count 264 k/uL (150-450); RBC 3.48 m/uL (4.30-5.90); RDW 13.4 % (11.5-15.5); WBC 5.3 k/uL (3.8-10.6)
[2024-04-05 14:59] LABS: AST 79 U/L (17-59); African American GFR (CKD) 75 (>60 ml/min/1.73 sqM); Albumin 4.4 g/dL (3.5-5.0); Alcohol <10 mg/dL; Alkaline Phosphatase 119 U/L (38-126); Anion Gap 16 mmol/L; Blood Urea Nitrogen 13 mg/dL (9-20); Calcium 9.5 mg/dL (8.4-10.2); Carbon Dioxide 21 mmol/L (22-30); Chloride 97 mmol/L (98-107); Glucose 116 mg/dL (74-99); Magnesium 1.5 mg/dL (1.6-2.3); Non-African American GFR(CKD) 64 (>60 ml/min/1.73 sqM); Potassium 3.2 mmol/L (3.5-5.1); Sodium 134 mmol/L (137-145); Total Bilirubin 2.1 mg/dL (0.2-1.3); Total Protein 6.8 g/dL (6.3-8.2)
[2024-04-05 15:09] LABS: ALT 48 U/L (4-49)
[2024-04-05] MEDS ORDERED: NALOXONE 0.4 MG/ML 1 ML VIAL IV PRN (15:27)
[2024-04-05] MEDS ORDERED: ONDANSETRON 4 MG/2 ML VIAL IVP PRN (15:27)
[2024-04-05] MEDS ORDERED: LORazepam 2 MG/ML INJ IV PRN ×2 (15:36)
[2024-04-05] MEDS: POTASSIUM CHLORIDE ER 20 MEQ TAB.ER PO STA (15:46)
[2024-04-05] MEDS: MAGNESIUM SULFATE-D5W PMX 1 GM in DEXTROSE/WATER 1 100ML.BAG IVPB SCH (15:46)
[2024-04-05] MEDS: THIAMINE 100 MG/ML 2 ML VIAL IM STA (15:46)
[2024-04-05] MEDS: SODIUM CHLORIDE 0.9% 1,000 ML IV SCH (15:46)
[2024-04-05] MEDS ORDERED: hydrOXYzine HCL 25 MG TAB PO PRN (16:22)
--- NOTE | 2024-04-05 16:55 | P.HPIM ---
History of Present Illness H&P Date: 04/05/24 History of Presenting Illness: Patient is a 63-year-old male with a past medical history of anxiety, EtOH abuse, alcohol withdrawal seizures, hypertension, thyroidism status post thyroidectomy, and anxiety. Patient presented to the emergency department via EMS secondary to reports of witnessed seizure-like activity on his couch lasting approximately 1 minute with complete loss of consciousness. Family at bedside report patient stopped drinking a couple days ago and was having significant tremors and shaking and had episode where he fell back onto the couch violently shaking from head to toes with loss of consciousness lasting approximately 1 minute. Per documentation in chart EMS reported patient was postictal upon their arrival. Patient currently alert and oriented x 4 and states he drinks approximately 1 bottle of wine or more per day has had a history of alcohol withdrawal seizures. Patient denies biting his tongue but did have involuntary loss of urine during the seizure activity. Family denies pt falling from couch or hitting his head. Patient denies having any headache, lightheadedness, dizziness, changes in vision or hearing, chest pain or palpitations, shortness of breath, nausea, vomiting, or experiencing any numbness/tingl ing/weakness/swelling in his extremities. Patient reports his last seizure was on Sunday. 03/31/2024 which resulting in him falling and hitting his head and right arm and underwent evaluation in the emergency department where he underwent a CT of head and laceration repair. Patient states that this was also a withdrawal seizure but upon review of chart patient's blood alcohol level was 397 at this time therefore it is unlikely that the seizure activity experienced on Sunday was due to alcohol withdrawal. Upon arrival to the hospital, patient underwent evaluation in the emergency department. Vital signs upon arrival show blood pressure 164/99, heart rate 104, respiratory rate 18, temp 98.8 F, and SpO2 of 100% on room air. Labs completed and reviewed. CBC showing macrocytic anemia with hemoglobin of 12.0 and MCV of 100.1. BMP showing hyponatremia with sodium 134, hypokalemia with potassium of 3.2, and high anion gap metabolic alkalosis with chloride of 97, bicarb of 21, and anion gap of 16. Renal function also elevated from baseline with BUN of 13, creatinine 1.21, and GFR of 64 with baseline creatinine of 0.8 and GFR greater than 90. Blood glucose 116. Magnesium 1.5. Liver profile showing hyperbilirubinemia with total bili of 2.1 and elevated ALT of 79 otherwise normal findings. Serum alcohol level was less than 10. EKG completed showing sinus tachycardia at 102 bpm with no significant T wave or ST abnormality showing no signs of acute ischemia upon my personal rev iew and interpretation. Electrolyte abnormalities replaced in the ED. Patient admitted under our services at this time for medical detox and evaluation of recurrent seizure activity. Neurology consulted secondary to recurrent seizure activity over the last week. Review of systems: Pertinent positives and negatives as discussed in HPI, a complete review of systems was performed and all other systems are negative. Physical exam: Vital signs reviewed and stable. General: Nontoxic, no distress and appears stated age. Derm: Skin warm and dry, normal coloration for ethnicity. Head: Atraumatic, normocephalic and symmetric. Large laceration to right forehead above eyebrow, sutures in place. Large bruise and laceration to right upper extremity. Eyes: EOM's intact, no lid lag, and anicteric sclera Mouth: no lip lesions, mucus membranes moist Cardiovascular: regular rate and rhythm with normal S1S2, no murmur, positive posterior tibial pulses bilaterally, and cap refill < 2 seconds. Lungs: Respirations even, regular, and unlabored on room air. Lungs CTA bilaterally, no rhonchi, no rales, no wheezing, and no accessory muscle usage. Abdominal: soft, nontender to palpation, no guarding, no appreciable organomegaly Ext: ROM intact. No gross muscle atrophy, no edema, no contractures Neuro: Speech clear, face symmetrical and CN II-XII grossly intact with no noted focal neuro deficits Psych: Alert and oriented to person, place, time, and situation. Appropriate and pleasant affect. Assessment and Plan of Care: Alcohol withdrawal in active alcoholic Witnessed seizure activity suspect possible alcohol withdrawal however patient had previous seizure on Sunday while intoxicated High anion gap metabolic alkalosis Electrolyte abnormalities: hyponatremia, hypokalemia, and hypomagnesemia Acute kidney injury -Order placed for monitoring of CIWA scores and patient to be medicated with Ativan 0.5 mg every 4 hours as needed for CIWA score of 4-5, Ativan 1 mg every 4 hours for CIWA score of 6-7, Ativan 2 mg every 3 hours CIWA score of 8-9, and Ativan 2 mg every 2 hours forr CIWA score of 10 or greater. -Continuous IV hydration with 0.9% normal saline at 100 cc/h -Thiamine 100 mg daily, and Multivitamin daily, and Folate 1 mg daily -Seizure, fall, and aspiration precautions in place. -Urine drug screen -EEG -Consult to neurology for evaluation as patient reports recurrent seizure activity stating from withdrawal, however previous seizure on 03/31/2024 patient was intoxicated. -Continued close monitoring of electrolytes and replace as needed. -Telemetry monitoring. -Acute kidney injury with with BUN 13, creatinine 1.21, GFR of 64 with baseline creatinine of 0.8. -Patient informed of [place] state law stating no driving until seizure free for 6 months. Patient also instructed to avoid climbing ladders, operating dangerous or heavy machinery or unsupervised swimming until seizure free for 6 months. Hypothyroidism status post thyroidectomy secondary to thyroid cancer -Continue levothyroxine 175 mcg daily. Obtain a TSH with free T4. Hypertension -Continue daily medication regimen with amlodipine 5 mg daily and lisinopril 10 mg daily. Anxiety -Continue daily medication regimen with BuSpar 10 mg twice daily and Zoloft 200 mg daily Data and imaging reviewed: -As stated above in HPI The patient is admitted with an anticipated greater than 2 midnight stay for evaluation of alcohol withdrawal seizure CODE STATUS: Full code DVT prophylaxis: Lovenox Anticipated discharge date: Pending clinical course Anticipated discharge place: Home Patient was seen independently by Nurse Practitioner. This document was prepared using [employer] dictation software. Please allow for errors in partnership development manager while rare they do occur. Daniel Deluca NP rendered care for this patient independently, reviewed the findings and plan as documented in the note above. I did not physically speak with or examine the patient on this date. Past Medical History Past Medical History: Blood Disorder, Cancer, GERD/Reflux, Hyperlipidemia, Hypertension, Seizure Disorder, Thyroid Disorder Additional Past Medical History / Comment(s): thyroid CA, hx seizure aug 2022., anerusym, anemia History of Any Multi-Drug Resistant Organisms: None Reported Past Surgical History: Hernia Repair Additional Past Surgical History / Comment(s): neck lump 1980 benign., nasal surgery, biopsy on lump on right neck-, thyroidectomy Past Anesthesia/Blood Transfusion Reactions: No Reported Reaction Past Psychological History: Anxiety Smoking Status: Never smoker Past Alcohol Use History: Daily Past Drug Use History: None Reported - Past Family History Mother Family Medical History: Cancer Father Family Medical History: Diabetes Mellitus Additional Family Medical History / Comment(s): history of seizures Medications and Allergies Home Medications Medication Instructions Recorded Confirmed Type Sertraline HCl [Zoloft] 200 mg PO DAILY 05/17/18 04/05/24 History Atorvastatin [Lipitor] 20 mg PO HS 07/19/19 04/05/24 History Folic Acid 1 mg PO DAILY 30 Days #30 tab 12/21/20 04/05/24 Rx Levothyroxine Sodium [Synthroid] 175 mcg PO DAILY 04/05/24 04/05/24 History Zinc Gluconate [Zinc] 50 mg PO DAILY 04/05/24 04/05/24 History amLODIPine [Norvasc] 5 mg PO DAILY 04/05/24 04/05/24 History busPIRone HCl [Buspar] 10 mg PO BID 04/05/24 04/05/24 History hydrOXYzine HCL [Atarax] 25 mg PO Q6H PRN 04/05/24 04/05/24 History lisinopriL [Zestril] 10 mg PO DAILY 04/05/24 04/05/24 History Allergies Allergy/AdvReac Type Severity Reaction Status Date / Time No Known Allergies Allergy Verified 04/05/24 15:41 Physical Exam Vitals: Vital Signs Temp Pulse Resp BP Pulse Ox 04/05/24 14:15 98.8 F 104 H 18 164/99 100 Intake and Output 04/05/24 04/05/24 04/05/24 06:59 14:59 22:59 Other: Weight 90.718 kg Results CBC & Chem 7: 04/05/24 14:38 04/05/24 14:38 Labs: Abnormal Lab Results - Last 24 Hours (Table) 04/05/24 04/05/24 04/05/24 Range/Units 14:37 14:38 14:38 RBC 3.48 L (4.30-5.90) m/uL Hgb 12.0 L (13.0-17.5) gm/dL Hct 34.8 L (39.0-53.0) % MCV 100.1 H (80.0-100.0) fL Lymphocytes # 0.9 L (1.0-4.8) k/uL Sodium 134 L (137-145) mmol/L Potassium 3.2 L (3.5-5.1) mmol/L Chloride 97 L (98-107) mmol/L Carbon Dioxide 21 L (22-30) mmol/L Glucose 116 H (74-99) mg/dL POC Glucose (mg/dL) 118 H (70-110) mg/dL Magnesium 1.5 L (1.6-2.3) mg/dL Total Bilirubin 2.1 H (0.2-1.3) mg/dL AST 79 H (17-59) U/L
[2024-04-05] MEDS: amLODIPine 5 MG TAB PO SCH (17:12)
[2024-04-05] MEDS: LORazepam 2 MG/ML INJ IV PRN (17:18)
[2024-04-05 19:15] LABS: Amphetamine Screen,Urine Not Detected (NotDetected); Barbiturate Screen,Urine Not Detected (NotDetected); Benzodiazepines Screen,Urine Detected (NotDetected); Cocaine Screen,Urine Not Detected (NotDetected); Methadone Screen, Urine Not Detected (NotDetected); Opiate Screen,Urine Not Detected (NotDetected); Oxycodone Screen, Urine Not Detected (NotDetected); Phencyclidine Screen,Urine Not Detected (NotDetected); Tricyclic Antidepressant,Urine Not Detected (NotDetected); Urn Cannabinoid Scrn Not Detected (NotDetected)
[2024-04-05] MEDS: busPIRone HCl 10 MG TAB PO SCH (20:35)
[2024-04-05] MEDS: ATORVASTATIN 20 MG TAB PO SCH (20:35)
[2024-04-05] MEDS: LORazepam 1 MG TAB PO PRN (20:36)
[2024-04-06] MEDS: LEVOTHYROXINE 88 MCG TAB PO SCH (06:27)
[2024-04-06] MEDS: THIAMINE 100 MG TAB PO SCH (08:24)
[2024-04-06] MEDS: SERTRALINE 100 MG TAB PO SCH (08:24)
[2024-04-06] MEDS: ZINC SULFATE 220 MG CAP PO SCH (08:24)
[2024-04-06] MEDS: FOLIC ACID 1 MG TAB PO SCH (08:25)
[2024-04-06] MEDS: ENOXAPARIN 40 MG/0.4 ML SYRINGE SQ SCH (08:25)
[2024-04-06] MEDS: MULTIVITAMINS, THERA 1 EACH TAB PO SCH (08:25)
[2024-04-06] MEDS: lisinopriL 10 MG TAB PO SCH (08:25)
[2024-04-06 10:07] LABS: ALT 40 U/L (10-49); AST 53 U/L (14-35); Albumin 3.9 g/dL (3.8-4.9); Albumin/Globulin Ratio 2.05 Ratio (1.60-3.17); Alkaline Phosphatase 106 U/L (41-126); BUN/Creat Ratio 8.73 Ratio (12.00-20.00); Blood Urea Nitrogen 9.6 mg/dL (9.0-27.0); Calcium 8.4 mg/dL (8.7-10.3); Carbon Dioxide 23.6 mmol/L (21.6-31.8); Chloride 102 mmol/L (96-109); Globulin 1.9 g/dL (1.6-3.3); Glucose 85 mg/dL (70-110); Magnesium 1.9 mg/dL (1.5-2.4); Potassium 3.6 mmol/L (3.5-5.5); Sodium 136 mmol/L (135-145); Total Bilirubin 1.1 mg/dL (0.3-1.2); Total Protein 5.8 g/dL (6.2-8.2)
[2024-04-06 10:20] LABS: HCT 32.6 % (39.6-50.0); MCH 34.3 pg (27.0-32.0); MCHC 33.7 g/dL (32.0-37.0); MCV 101.6 FL (80.0-97.0); Mean Platelet Volume 8.7 FL (9.5-12.2); NRBC Per 100 WBC 0 X 10*3/uL (0.00-0.01); Platelet Count 175 X 10*3/uL (140-440); RBC 3.21 X 10*6/uL (4.40-5.60); RDW 12.8 % (11.5-14.5); WBC 4.21 X 10*3/uL (4.50-10.00)
[2024-04-06] MEDS: LORazepam 0.5 MG TAB PO PRN (11:02)
--- NOTE | 2024-04-06 11:30 | P.CNNES ---
History of Present Illness Consult date: 04/06/24 Requesting physician: Daniel Deluca Reason for Consult: recurrent seizure supect alcohol withdrawal History of Present Illness: This is a 63-year-old gentleman with history of alcohol abuse, alcohol withdrawal seizure, thyroidism status post thyroidectomy who presented emergency department via EMS because of witnessed seizure-like activity. Some of the history is obtained from primary team. Patient is not a great historian. He stated that he came to the hospital because seizure but stated that his parents brought him here but per the primary team's note and he was brought via EMS. Had to think about whether he had a seizure before his parents came or after his parents came then towards the end he stated that he had a seizure before his parents came and he denies any urinary incontinence bowel incontinence or tongue bite. He did acknowledge that he has stopped drinking for the past 4 days before come to the hospital. Primary team's note the family were at bedside and they notified primary team that he stopped drinking a couple days and was having significant tremor and shaking and an episode where he fell back on his couch violently shaking from head to toe with loss of consciousness lasting approximately 1 minute. Patient drinks 1 bottle of wine or more per day. Patient had seizure-like activity on 03/31/2024 resulted in him falling hitting his head right arm and underwent evaluation in our emergency department where he had CT and laceration repair of the right eyebrow. But at that time his alcohol level was 397 at this time around his alcohol level is less than 10. Patient stated that he had stated above history of alcohol withdrawal seizures and had an episode maybe about a year and 1/2 to 2 years ago where he had a seizure due to decreasing alcohol consumption hit his head and had a bleed and had to have craniotomy. He stated that he will have intermittent episodes where he will lose consciousness and is very brief again he contributed to alcohol withdrawal and that after the bleeding episode. He states that he followed up with a neurologist as an outpatient but does not recall the name. He is not on any antiepileptic drugs. Patient is unemployed. Some of the workup during this hospital visit consisted of: MCV is 100 Platelet is 264 White blood cells 5.3 on presentation Sodium is 134 repeated 136 Creatinine is 1.21 Serum glucose is 160 Calcium is 9.5, AST 79 and ALT is 48 repeated is 53 and 40 respectively Alcohol level is less than 10 Review of Systems The positive and negative as per HPI. Past Medical History Past Medical History: Blood Disorder, Cancer, GERD/Reflux, Hyperlipidemia, Hype rtension, Seizure Disorder, Thyroid Disorder Additional Past Medical History / Comment(s): thyroid CA, hx seizure aug 2022., anerusym, anemia History of Any Multi-Drug Resistant Organisms: None Reported Past Surgical History: Hernia Repair Additional Past Surgical History / Comment(s): neck lump 1980 benign., nasal surgery, biopsy on lump on right neck-, thyroidectomy Past Anesthesia/Blood Transfusion Reactions: No Reported Reaction Past Psychological History: Anxiety Additional Psychological History / Comment(s): . Smoking Status: Never smoker Past Alcohol Use History: Daily Additional Past Alcohol Use History / Comment(s): "I'm an alcoholic" quit drinking on 07/09/21 Past Drug Use History: None Reported - Past Family History Mother Family Medical History: Cancer Father Family Medical History: Diabetes Mellitus Additional Family Medical History / Comment(s): history of seizures Medications and Allergies Home Medications Medication Instructions Recorded Confirmed Type Sertraline HCl [Zoloft] 200 mg PO DAILY 05/17/18 04/05/24 History Atorvastatin [Lipitor] 20 mg PO HS 07/19/19 04/05/24 History Folic Acid 1 mg PO DAILY 30 Days #30 tab 12/21/20 04/05/24 Rx Levothyroxine Sodium [Synthroid] 175 mcg PO DAILY 04/05/24 04/05/24 History Zinc Gluconate [Zinc] 50 mg PO DAILY 04/05/24 04/05/24 History amLODIPine [Norvasc] 5 mg PO DAILY 04/05/24 04/05/24 History busPIRone HCl [Buspar] 10 mg PO BID 04/05/24 04/05/24 History hydrOXYzine HCL [Atarax] 25 mg PO Q6H PRN 04/05/24 04/05/24 History lisinopriL [Zestril] 10 mg PO DAILY 04/05/24 04/05/24 History Allergies Allergy/AdvReac Type Severity Reaction Status Date / Time No Known Allergies Allergy Verified 04/05/24 15:41 Physical Examination - Vital Signs Vital Signs: Vital Signs Temp Pulse Pulse Resp BP BP Pulse Ox 04/06/24 08:25 74 15 04/06/24 07:00 97.9 F 74 15 131/82 92 L 04/06/24 01:50 97.8 F 80 17 119/65 98 04/05/24 21:58 97.4 F L 83 17 121/78 99 04/05/24 20:29 73 17 143/97 98 04/05/24 17:15 73 17 141/96 100 04/05/24 14:15 98.8 F 104 H 18 164/99 100 Intake and Output 04/05/24 04/06/24 04/06/24 22:59 06:59 14:59 Output Total 300 Balance -300 Output: Urine 300 Other: Voiding Method Urinal Urinal # Voids 0 0 1 # Bowel Movements 1 Weight 90.718 kg GENERAL: The patient is lying in bed and is not in acute distress. Is very tremolos. HENT: Has laceration repair on right eyes from recent fall on 03/31/2024 NEUROLOGICAL: Higher mental function: The patient is awake, alert, oriented to self, place and time. Patient is following commands. No aphasia and no neglect. Cranial nerves: The pupils are round, equal and reactive to light and accommodation. Visual garcia are full to confrontation throughout. Extraocular movement is intact no nystagmus is noted. Facial sensation is normal to touch throughout. The facial strength is normal throughout. Hearing is normal bilaterally to hand rub. Tongue is midline and moved [id number] without any difficulty. No dysarthria is noted. Shoulder shrug is normal bilaterally. Motor: The strength is limited since tremolos. But lifting all extremities ab ove gravity. Cerebellum: Normal finger to nose bilaterally. Sensation: Sensation is normal to touch throughout. Reflexes (right/left): Defer because of his cooperation. Plantars are upgoing bilaterally at baseline Results - Laboratory Findings CBC and BMP: 04/06/24 05:23 04/06/24 05:23 Abnormal Lab Findings: Abnormal Labs 04/05/24 04/05/24 04/05/24 14:37 14:38 14:38 WBC RBC 3.48 L Hgb 12.0 L Hct 34.8 L MCV 100.1 H MCH MPV Lymphocytes # 0.9 L Sodium 134 L Potassium 3.2 L Chloride 97 L Carbon Dioxide 21 L BUN/Creatinine Ratio Glucose 116 H POC Glucose (mg/dL) 118 H Calcium Magnesium 1.5 L Total Bilirubin 2.1 H AST 79 H Total Protein U Benzodiazepines Scrn 04/05/24 04/06/24 04/06/24 18:29 05:23 05:23 WBC 4.21 L RBC 3.21 L Hgb 11.0 L Hct 32.6 L MCV 101.6 H MCH 34.3 H MPV 8.7 L Lymphocytes # Sodium Potassium Chloride Carbon Dioxide BUN/Creatinine Ratio 8.73 L Glucose POC Glucose (mg/dL) Calcium 8.4 L Magnesium Total Bilirubin AST 53 H Total Protein 5.8 L U Benzodiazepines Scrn Detected H Assessment and Plan Assessment: This is a 63-year-old gentleman with history of alcohol withdrawal seizure who presents to our facility on 04/05/2024 again for alcohol withdrawal seizure. He had a recent admission on 03/31/2024 for seizure-like episode and his alcohol level was 397 but on 04/05/2024 it is less than 10. He states in the past he has alcohol withdrawal seizure and had a bleed as a result he had a right craniotomy. Right now he is very tremulous. Breakthrough seizures due to alcohol withdrawal on this event (since alcohol level <10), But has seizure episode on 03/31/2024 episode it does not appear withdrawal since his alcohol level was 397. I cannot rule out's epileptic in nature especially with his history of a brain bleed because of head trauma from alcohol withdrawal that can cause cortical irritability leading to seizure Patient is in withdrawals since he is very tremulous. 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 I ordered MRI of the brain with and without seizure protocol I started the patient on Keppra 500 mg twice daily Seizure precautions seizure pads Recommend to manage his goal withdrawal and will defer the management to the primary team. Patient is on Ativan. Continue thiamine 100 mg daily Patient is on folic acid 1 mg daily Per the [place] DMV, because of the seizures to avoid driving for 6 months until seizure-free, avoid heights, avoid swimming assisted or using heavy bryce cesar Patient was counseled on alcohol cessation Will defer the rest of the medical management to primary and other specialist Plan discussed with the patient, primary team nurse practitioner and his nurse Thank for the consult Time with Patient: Greater than 30
[2024-04-06] MEDS: levETIRAcetam 500 MG TAB PO SCH (12:10)
[2024-04-06] MEDS: chlordiazePOXIDE 25 MG CAP PO SCH (12:10)
--- NOTE | 2024-04-06 12:20 | P.PN ---
Subjective Progress Note Date: 04/06/24 History of Presenting Illness: Patient is a 63-year-old male with a past medical history of anxiety, EtOH abuse drinking a reported 1-2 bottles of wine daily, alcohol withdrawal seizures, hypertension, hypothyroidism status post thyroidectomy, TBI with previous brain bleed and anxiety. Patient presented to the emergency department via EMS secondary to reports of witnessed seizure-like activity on his couch lasting approximately 1 minute with complete loss of consciousness. Upon arrival to the hospital, patient underwent evaluation in the emergency department. Vital signs upon arrival show blood pressure 164/99, heart rate 104, respiratory rate 18, temp 98.8 F, and SpO2 of 100% on room air. Labs completed and reviewed. CBC showing macrocytic anemia with hemoglobin of 12.0 and MCV of 100.1. BMP showing hyponatremia with sodium 134, hypokalemia with potassium of 3.2, and high anion gap metabolic alkalosis with chloride of 97, bicarb of 21, and anion gap of 16. Renal function also elevated from baseline with BUN of 13, creatinine 1.21, and GFR of 64 with baseline creatinine of 0.8 and GFR greater than 90. Blood glucose 116. Magnesium 1.5. Liver profile showing hyperbilirubinemia with total bili of 2.1 and elevated ALT of 79 otherwise normal findings. Serum alcohol level was less than 10. EKG completed showing sinus tachycardia at 102 bpm with no significant T wave or ST abnormality showing no signs of acute ischemia upon my personal review and interpretation. Electrolyte abnormalities replaced in the ED. Patient admitted under our services at this time for medical detox and evaluation of recurrent seizure activity. Neurology consulted secondary to recurrent seizure activity over the last week one episode while intoxicated and one episode when alcohol was less than 10. Physical exam: Patient seen and fully evaluated at bedside. Patient with moderate tremors to face and bilateral upper extremities. Patient denies having any pain or complaints at this time. He has had no further episodes of reported seizure activity. Discussed with RN patient's needs for medication per [facility] protocol. Vital signs reviewed and stable. General: Nontoxic, no distress and appears stated age. Derm: Skin warm and dry, normal coloration for ethnicity. Head: Atraumatic, normocephalic and symmetric. Large laceration to right forehead above eyebrow, sutures in place. Large bruise and laceration to right upper extremity. Eyes: EOM's intact, no lid lag, and anicteric sclera Mouth: no lip lesions, mucus membranes moist Cardiovascular: regular rate and rhythm with normal S1S2, no murmur, positive posterior tibial pulses bilaterally, and cap refill < 2 seconds. Lungs: Respirations even, regular, and unlabored on room air. Lungs CTA bilaterally, no rhonchi, no rales, no wheezing, and no accessory muscle usage. Abdominal: soft, nontender to palpation, no guarding, no appreciable o rganomegaly Ext: ROM intact. No gross muscle atrophy, no edema, no contractures Neuro: Speech clear, face symmetrical and CN II-XII grossly intact with no noted focal neuro deficits. Moderate tremors noted bilateral upper extremities and face. Psych: Alert and oriented to person, place, time, and situation. Appropriate and pleasant affect. Assessment and Plan of Care: Alcohol withdrawal in active alcoholic Recurrent witnessed seizure activity Hyperbilirubinemia with elevated transaminase, secondary to daily alcohol abuse Bicytopenia, secondary to daily alcohol abuse Acute kidney injury, improved with IV fluid hydration High anion gap metabolic alkalosis, resolved with IV fluid hydration Electrolyte abnormalities: hyponatremia, hypokalemia, and hypomagnesemia. Resolved after replacement. -Continue monitoring of CIWA scores and patient to be medicated with Ativan 0.5 mg every 4 hours as needed for CIWA score of 4-5, Ativan 1 mg every 4 hours for CIWA score of 6-7, Ativan 2 mg every 3 hours CIWA score of 8-9, and Ativan 2 mg every 2 hours forr CIWA score of 10 or greater. -Due to significant tremors and patient's longstanding history of alcohol abuse we will start patient on Librium 50 mg 3 times daily scheduled in addition to CIWA protocol and will slowly titrate down/wean daily.. Hold for sedation. -Continue IV hydration with 0.9% normal saline at 100 cc/h -Thiamine 100 mg daily, and Multivitamin daily, and Folate 1 mg daily -Continue to maintain seizure, fall, and aspiration precautions. -Urine drug screen was only positive for benzodiazepines and which patient is receiving during this hospitalization. -EEG to be completed -Neurology consulted, discussed plan of care with Dr. Domínguez in detail recommending in addition to EEG patient undergo MRI of brain -Continued close monitoring of electrolytes and replace as needed. -Telemetry monitoring. -Patient informed of [place] state law stating no driving until seizure free for 6 months. Patient also instructed to avoid climbing ladders, operating dangerous or heavy machinery or unsupervised swimming until seizure free for 6 months. Hypothyroidism status post thyroidectomy secondary to thyroid cancer -Continue levothyroxine 175 mcg daily. Obtain a TSH with free T4. Hypertension -Continue daily medication regimen with amlodipine 5 mg daily and lisinopril 10 mg daily. Anxiety -Continue daily medication regimen with BuSpar 10 mg twice daily and Zoloft 200 mg daily Data and imaging reviewed: -Morning Labs reviewed. CBC showing bicytopenia with WBC count of 4.21 and hemoglobin of 11.0. BMP unremarkable. Magnesium 1.9. Liver profile showing improvement in hyperbilirubinemia and elevated AST of 53. -Vital signs reviewed. Blood pressure 131/82, heart rate 74, respiratory rate 15, temp 97.9 F, and SpO2 of 92% on room air. CODE STATUS: Full code DVT prophylaxis: Lovenox Anticipated discharge date: Pending clinical course Anticipated discharge place: Home Patient was seen independently by Nurse Practitioner. This document was prepared using [employer] dictation software. Please allow for errors in pulp plant supervisor while rare they do occur. . I reviewed the documentation as provided by the DOMINIQUE above, who is the original author of this note. I agree with the documented assessment and plan, with the following changes: none Objective - Vital Signs Vital signs: Vital Signs Temp 97.9 F 04/06/24 07:00 Pulse 74 04/06/24 07:00 Resp 15 04/06/24 07:00 BP 131/82 04/06/24 07:00 Pulse Ox 92 L 04/06/24 07:00 FiO2 Intake & Output 04/05/24 04/06/24 04/06/24 18:59 06:59 18:59 Weight 90.718 kg 90.718 kg Other: Voiding Method Urinal # Voids 0 - Labs CBC & Chem 7: 04/06/24 05:23 04/06/24 05:23 Labs: Abnormal Lab Results - Last 24 Hours (Table) 04/05/24 04/05/24 04/05/24 Range/Units 14:37 14:38 14:38 RBC 3.48 L (4.30-5.90) m/uL Hgb 12.0 L (13.0-17.5) gm/dL Hct 34.8 L (39.0-53.0) % MCV 100.1 H (80.0-100.0) fL Lymphocytes # 0.9 L (1.0-4.8) k/uL Sodium 134 L (137-145) mmol/L Potassium 3.2 L (3.5-5.1) mmol/L Chloride 97 L (98-107) mmol/L Carbon Dioxide 21 L (22-30) mmol/L Glucose 116 H (74-99) mg/dL POC Glucose (mg/dL) 118 H (70-110) mg/dL Magnesium 1.5 L (1.6-2.3) mg/dL Total Bilirubin 2.1 H (0.2-1.3) mg/dL AST 79 H (17-59) U/L U Benzodiazepines Scrn (NotDetected) 04/05/24 Range/Units 18:29 RBC (4.30-5.90) m/uL Hgb (13.0-17.5) gm/dL Hct (39.0-53.0) % MCV (80.0-100.0) fL Lymphocytes # (1.0-4.8) k/uL Sodium (137-145) mmol/L Potassium (3.5-5.1) mmol/L Chloride (98-107) mmol/L Carbon Dioxide (22-30) mmol/L Glucose (74-99) mg/dL POC Glucose (mg/dL) (70-110) mg/dL Magnesium (1.6-2.3) mg/dL Total Bilirubin (0.2-1.3) mg/dL AST (17-59) U/L U Benzodiazepines Scrn Detected H (NotDetected)
[2024-04-07 09:01] LABS: ALT 30 U/L (10-49); AST 36 U/L (14-35); Albumin 3.4 g/dL (3.8-4.9); Albumin/Globulin Ratio 1.89 Ratio (1.60-3.17); Alkaline Phosphatase 88 U/L (41-126); BUN/Creat Ratio 8.64 Ratio (12.00-20.00); Blood Urea Nitrogen 9.5 mg/dL (9.0-27.0); Carbon Dioxide 23.2 mmol/L (21.6-31.8); Chloride 105 mmol/L (96-109); Globulin 1.8 g/dL (1.6-3.3); Glucose 88 mg/dL (70-110); Magnesium 1.7 mg/dL (1.5-2.4); Potassium 3.6 mmol/L (3.5-5.5); Sodium 137 mmol/L (135-145); Total Bilirubin 0.7 mg/dL (0.3-1.2); Total Protein 5.2 g/dL (6.2-8.2)
[2024-04-07 09:54] LABS: HCT 31.4 % (39.6-50.0); HGB 10.5 g/dL (13.0-17.0); MCH 33.8 pg (27.0-32.0); MCHC 33.4 g/dL (32.0-37.0); Mean Platelet Volume 9.3 FL (9.5-12.2); NRBC Per 100 WBC 0 X 10*3/uL (0.00-0.01); Platelet Count 146 X 10*3/uL (140-440); RBC 3.11 X 10*6/uL (4.40-5.60); RDW 12.6 % (11.5-14.5); WBC 4.35 X 10*3/uL (4.50-10.00)
--- NOTE | 2024-04-07 12:00 | P.PN ---
Subjective Progress Note Date: 04/07/24 Hospital Course: Patient is a 63-year-old male with a past medical history of anxiety, EtOH abuse drinking a reported 1-2 bottles of wine daily, alcohol withdrawal seizures, hypertension, hypothyroidism status post thyroidectomy, TBI with previous brain bleed and anxiety. Patient presented to the emergency department via EMS secondary to reports of witnessed seizure-like activity on his couch lasting approximately 1 minute with complete loss of consciousness. Upon arrival to the hospital, patient underwent evaluation in the emergency department. Vital signs upon arrival show blood pressure 164/99, heart rate 104, respiratory rate 18, temp 98.8 F, and SpO2 of 100% on room air. Labs completed and reviewed. CBC showing macrocytic anemia with hemoglobin of 12.0 and MCV of 100.1. BMP showing hyponatremia with sodium 134, hypokalemia with potassium of 3.2, and high anion gap metabolic alkalosis with chloride of 97, bicarb of 21, and anion gap of 16. Renal function also elevated from baseline with BUN of 13, creatinine 1.21, and GFR of 64 with baseline creatinine of 0.8 and GFR greater than 90. Blood glucose 116. Magnesium 1.5. Liver profile showing hyperbilirubinemia with total bili of 2.1 and elevated ALT of 79 otherwise normal findings. Serum alcohol level was less than 10. EKG completed showing sinus tachycardia at 102 bpm with no significant T wave or ST abnormality showing no signs of acute ischemia upon my personal review and interpretation. Electrolyte abnormalities replaced in the ED. Patient admitted under our services at this time for medical detox and evaluation of recurrent seizure activity. Neurology consulted secondary to recurrent seizure activity over the last week one episode while intoxicated and one episode when alcohol was less than 10. Physical exam: Patient seen and fully evaluated at bedside on return from MRI. Patient continues to have tremors to face and bilateral upper extremities. Patient denies having any pain or complaints at this time. He has had no further episodes of reported seizure activity. Vital signs reviewed and stable. General: Nontoxic, no distress and appears stated age. Derm: Skin warm and dry, normal coloration for ethnicity. Head: Atraumatic, normocephalic and symmetric. Large laceration to right forehead above eyebrow, sutures in place. Large bruise and laceration to right upper extremity. Eyes: EOM's intact, no lid lag, and anicteric sclera Mouth: no lip lesions, mucus membranes moist Cardiovascular: regular rate and rhythm with normal S1S2, no murmur, positive posterior tibial pulses bilaterally, and cap refill < 2 seconds. Lungs: Respirations even, regular, and unlabored on room air. Lungs CTA bilatera lly, no rhonchi, no rales, no wheezing, and no accessory muscle usage. Abdominal: soft, nontender to palpation, no guarding, no appreciable organomegaly Ext: ROM intact. No gross muscle atrophy, no edema, no contractures Neuro: Speech clear, face symmetrical and CN II-XII grossly intact with no noted focal neuro deficits. Moderate tremors noted bilateral upper extremities and face. Psych: Alert and oriented to person, place, time, and situation. Appropriate and pleasant affect. Assessment and Plan of Care: Alcohol withdrawal in active alcoholic Recurrent witnessed seizure activity Hyperbilirubinemia with elevated transaminase, secondary to daily alcohol abuse Bicytopenia, secondary to daily alcohol abuse Acute kidney injury, improved with IV fluid hydration High anion gap metabolic alkalosis, resolved with IV fluid hydration Electrolyte abnormalities: hyponatremia, hypokalemia, and hypomagnesemia. Resolved after replacement. -Continue monitoring of CIWA scores and patient to be medicated with Ativan 0.5 mg every 4 hours as needed for CIWA score of 4-5, Ativan 1 mg every 4 hours for CIWA score of 6-7, Ativan 2 mg every 3 hours CIWA score of 8-9, and Ativan 2 mg every 2 hours forr CIWA score of 10 or greater. -Continue scheduled Librium 50 mg 3 times daily scheduled in addition to CIWA protocol and will slowly titrate down/wean daily.. Hold for sedation. -Continue IV hydration with 0.9% normal saline at 100 cc/h -Thiamine 100 mg daily, and Multivitamin daily, and Folate 1 mg daily -Continue to maintain seizure, fall, and aspiration precautions. -Urine drug screen was only positive for benzodiazepines and which patient is receiving during this hospitalization. -EEG completed and currently pending results. -Neurology consulted, discussed plan of care with Dr. Domínguez in detail recomme nding in addition to EEG and MRI of brain, pt started patient on Keppra 500 mg every 12 hours. -Continued close monitoring of electrolytes and replace as needed. -Telemetry monitoring. -Patient informed of [place] state law stating no driving until seizure free for 6 months. Patient also instructed to avoid climbing ladders, operating dangerous or heavy machinery or unsupervised swimming until seizure free for 6 months. Hypothyroidism status post thyroidectomy secondary to thyroid cancer -Continue levothyroxine 175 mcg daily. Obtain a TSH with free T4. Hypertension -Continue daily medication regimen with amlodipine 5 mg daily and lisinopril 10 mg daily. Anxiety -Continue daily medication regimen with BuSpar 10 mg twice daily and Zoloft 200 mg daily Data and imaging reviewed: -Morning Labs reviewed. CBC showing bicytopenia with WBC count of 4.35 and hemoglobin of 10.5. BMP unremarkable. Blood glucose 88. Magnesium 1.7. Liver profile showing improvement in hyperbilirubinemia and elevated AST of 36.. -Vital signs reviewed. Blood pressure 122/80, heart rate 68, respiratory rate 16, temp 97.7 F, and SpO2 of 99% on room air. CODE STATUS: Full code DVT prophylaxis: Lovenox Anticipated discharge date: Pending clinical course, likely begin to wean patient down from Librium tomorrow morning with anticipated discharge being 04/09/[address]: Home Patient was seen independently by Nurse Practitioner. This document was prepared using [employer] dictation software. Please allow for errors in nurse recruiter while rare they do occur. . I reviewed the documentation as provided by the DOMINIQUE above, who is the original author of this note. I agree with the documented assessment and plan, with the following changes: none Objective - Vital Signs Vital signs: Vital Signs Temp 97.9 F 04/07/24 02:00 Pulse 73 04/07/24 02:00 Resp 17 04/06/24 14:00 BP 128/83 04/07/24 02:00 Pulse Ox 99 04/07/24 02:00 FiO2 Intake & Output 04/06/24 04/07/24 04/07/24 18:59 06:59 18:59 Output Total 300 Balance -300 Output: Urine 300 Other: Voiding Method Urinal Toilet Urinal # Voids 2 1 # Bowel Movements 1 1 - Labs CBC & Chem 7: 04/07/24 05:01 04/07/24 05:01 Labs: Abnormal Lab Results - Last 24 Hours (Table) 04/06/24 04/06/24 04/06/24 Range/Units 05:23 05:23 06:00 WBC 4.21 L (4.50-10.00) X 10*3/uL RBC 3.21 L (4.40-5.60) X 10*6/uL Hgb 11.0 L (13.0-17.0) g/dL Hct 32.6 L (39.6-50.0) % MCV 101.6 H (80.0-97.0) FL MCH 34.3 H (27.0-32.0) pg MPV 8.7 L (9.5-12.2) FL BUN/Creatinine Ratio 8.73 L (12.00-20.00) Ratio Calcium 8.4 L (8.7-10.3) mg/dL AST 53 H (14-35) U/L Total Protein 5.8 L (6.2-8.2) g/dL TSH 51.000 H (0.350-5.500) UIU/ML Free (T4) Reflex I 0.63 L (0.80-1.80) ng/dL
--- NOTE | 2024-04-07 12:35 | MR ---
EXAMINATION TYPE: MR brain wo/w con DATE OF EXAM: 04/07/2024 12:17 PM CLINICAL INDICATION: Male, 63 years old with history of seizure; PHH, Seizures COMPARISON: 03/31/2024 TECHNIQUE: Multi planar, multi sequence imaging was performed through the brain including: T1, T2, In version recovery, susceptibility weighted imaging and gradient echo imaging and Diffusion weighted im aging. The patient was then given intravenous contrast and multi planar, T1 fat-saturation images wer e obtained. IV Contrast: 9 cc Gadavist FINDINGS: Motion limits exam. Craniotomy changes right skull with susceptibility artifact.Mild cerebral atrophy with proportional d ilation of ventricular system. Diffusion-weighted imaging shows no evidence of restricted diffusion to suggest acute/subacute infarct. Intracranial arterial flow voids are maintained. Midline structure s show no abnormality. Scattered foci of high T2 signal intensity are seen within the periventricular white matter. The susceptibility weighted images do not reveal any evidence for micro-hemorrhage. Af ter administration of gadolinium, no abnormal enhancement is seen. Paranasal sinuses and mastoid air cells: No significant paranasal sinus disease. Visualized orbits: Orbital contents are intact. IMPRESSION: Motion limited exam. 1. Postcraniotomy changes. No evidence of intracranial mass, acute/subacute infarct, or abnormal enha ncement. 2. Minimal Nonspecific white matter changes, likely related to small vessel ischemic disease.
[2024-04-07] MEDS: MAGNESIUM SULFATE-D5W PMX 1 GM in DEXTROSE/WATER 1 100ML.BAG IVPB SCH (12:58)
--- NOTE | 2024-04-07 14:30 | P.PN ---
Subjective Progress Note Date: 04/07/24 I am following up with the patient and no further seizure-like episodes. I spoke with the primary team nurse practitioner and she stated that he drinks more than he states and I do agree especially since the patient states he only drinks 1 drink the later he states he drinks 2 but his prior hospital visit most recent 1 alcohol level was close to 400. Objective - Vital Signs Vital signs: Vital Signs Temp 97.7 F 04/07/24 07:10 Pulse 68 04/07/24 07:10 Resp 16 04/07/24 07:10 BP 122/80 04/07/24 07:10 Pulse Ox 99 04/07/24 09:31 FiO2 Intake & Output 04/06/24 04/07/24 04/07/24 18:59 06:59 18:59 Output Total 300 Balance -300 Output: Urine 300 Other: Voiding Method Urinal Toilet Toilet Urinal Urinal # Voids 2 1 # Bowel Movements 1 1 - Exam GENERAL: The patient is lying in bed and is not in acute distress. Is very tremolos. HENT: Has laceration repair on right eyes from recent fall on 03/31/2024 NEUROLOGICAL: Higher mental function: The patient is awake, alert, oriented to self, place and time. Patient is following commands. No aphasia and no neglect. Cranial nerves: The pupils are round, equal and reactive to light and accommodation. Visual garcia are full to confrontation throughout. Extraocular movement is intact no nystagmus is noted. Facial sensation is normal to touch throughout. The facial strength is normal throughout. Hearing is normal bilaterally to hand rub. Tongue is midline and moved [id number] without any difficulty. No dysarthria is noted. Shoulder shrug is normal bilaterally. Motor: The strength is limited since tremolos. But lifting all extremities above gravity. Cerebellum: Normal finger to nose bilaterally. Sensation: Sensation is normal to touch throughout. Reflexes (right/left): Defer because of his cooperation. Plantars are upgoing bilaterally at baseline Some of the workup during this hospital visit consisted of: MCV is 100 Platelet is 264 White blood cells 5.3 on presentation Sodium is 134 repeated 136 Creatinine is 1.21 Serum glucose is 160 Calcium is 9.5, AST 79 and ALT is 48 repeated is 53 and 40 respectively Alcohol level is less than 10 TSH is 51 and the free T4 is 0.63 MRI of the brain is reported as postcraniotomy changes. No evidence of intracra nial mass, acute/subacute infarct or abnormal enhancement. Minimal nonspecific white matter changes Prelminary routine EEG is no seizure - Labs CBC & Chem 7: 04/07/24 05:01 04/07/24 05:01 Labs: Abnormal Lab Results - Last 24 Hours (Table) 04/06/24 04/07/24 04/07/24 Range/Units 06:00 05:01 05:01 WBC 4.35 L (4.50-10.00) X 10*3/uL RBC 3.11 L (4.40-5.60) X 10*6/uL Hgb 10.5 L (13.0-17.0) g/dL Hct 31.4 L (39.6-50.0) % MCV 101.0 H (80.0-97.0) FL MCH 33.8 H (27.0-32.0) pg MPV 9.3 L (9.5-12.2) FL BUN/Creatinine Ratio 8.64 L (12.00-20.00) Ratio Calcium 8.0 L (8.7-10.3) mg/dL AST 36 H (14-35) U/L Total Protein 5.2 L (6.2-8.2) g/dL Albumin 3.4 L (3.8-4.9) g/dL TSH 51.000 H (0.350-5.500) UIU/ML Free (T4) Reflex I 0.63 L (0.80-1.80) ng/dL Assessment and Plan Assessment: This is a 63-year-old gentleman with history of alcohol withdrawal seizure who presents to our facility on 04/05/2024 again for alcohol withdrawal seizure. He had a recent admission on 03/31/2024 for seizure-like episode and his alcohol level was 397 but on 04/05/2024 it is less than 10. He states in the past he has alcohol withdrawal seizure and had a bleed as a result he had a right craniotomy. Right now he is very tremulous. Breakthrough seizures due to alcohol withdrawal on this event (since alcohol level <10), But has seizure episode on 03/31/2024 episode it does not appear withdrawal since his alcohol level was 397. I cannot rule out's epileptic in nature especially with his history of a brain bleed because of head trauma from alcohol withdrawal that can cause cortical irritability leading to seizure. MRI Brain is negative for acute or subacute stroke or any enhancement. Preliminary routine EEG is negative for seizure. Patient is in withdrawals since he is very tremulous. Patient has uncontrolled hypothyroidism which is also contributing to his encephalopathy. History of brain bleed from alcohol withdrawal and the patient had right craniotomy History of alcohol withdrawal seizure Heavy alcohol use and current alcohol level is less than 20 Plan: Continue Keppra 500 mg twice daily Seizure precautions seizure pads Recommend to manage his goal withdrawal and will defer the management to the primary team. Patient is on Ativan. Continue thiamine 100 mg daily Patient is on folic acid 1 mg daily Per the [place] DMV, because of the seizures to avoid driving for 6 months until seizure-free, avoid heights, avoid swimming assisted or using heavy ma chinery Patient was counseled on alcohol cessation Defer the management of hypothyroidism to the primary team Will defer the rest of the medical management to primary and other specialist Discharge recommend the patient to follow-up with a neurologist as an outpatient within 1 to 2 weeks. Plan discussed with the patient, primary team nurse practitioner and his nurse There is no further neurological workup. Will sign off. Please reconsult if needed. Time with Patient: Less than 30
--- NOTE | 2024-04-07 21:00 | EEG ---
ELECTROENCEPHALOGRAM REPORT CLINICAL HISTORY: This is a 63 gentleman with history of significant alcohol use, alcohol withdrawal seizure who had a breakthrough seizure. The video EEG is obtained to evaluate for seizure epileptiform activity. EEG TYPE: This is a routine 21-channel EEG with video using the 10/20 electrode placement system. RELEVANT MEDICATIONS: 1. Zoloft. 2. Buspirone. 3. Keppra. DESCRIPTION: Wakefulness is only obtained. During awake state, the posterior-dominant rhythm consists of [id number] voltage of 10 Hz activity that is well modulated, well sustained. There was no physiological stage 2 sleep activity. There is no focal slowing. There is myogenic artifact over the left temporal region. Interictal and ictal are none. ACTIVATION PROCEDURES: Photic stimulation and hyperventilation are not performed. CLINICAL INTERPRETATION: This is a normal routine EEG. There is no focal slowing, epileptiform discharges, or seizure on the EEG. A normal routine EEG does not rule out underlying epilepsy. Clinical correlation is recommended. YOLANDA / UMANGN: [id number] / ANA
[2024-04-08] MEDS ORDERED: chlordiazePOXIDE 25 MG CAP PO SCH (09:00)
[2024-04-08 10:27] LABS: HCT 34.4 % (39.0-53.0); HGB 11.4 gm/dL (13.0-17.5); MCH 34.4 pg (25.0-35.0); MCHC 33.2 g/dL (31.0-37.0); MCV 103.6 fL (80.0-100.0); Macrocytosis Slight; Mean Platelet Volume 7.4; Platelet Count 199 k/uL (150-450); RBC 3.32 m/uL (4.30-5.90); RDW 13.4 % (11.5-15.5); WBC 4.1 k/uL (3.8-10.6)
[2024-04-08 10:42] LABS: ALT 30 U/L (4-49); AST 42 U/L (17-59); African American GFR (CKD) >90 (>60 ml/min/1.73 sqM); Albumin 3.5 g/dL (3.5-5.0); Albumin/Globulin Ratio 1.5; Alkaline Phosphatase 82 U/L (38-126); Anion Gap 5 mmol/L; Blood Urea Nitrogen 8 mg/dL (9-20); Calcium 8.8 mg/dL (8.4-10.2); Carbon Dioxide 23 mmol/L (22-30); Chloride 106 mmol/L (98-107); Globulin 2.3 g/dL; Glucose 86 mg/dL (74-99); Magnesium 1.8 mg/dL (1.6-2.3); Non-African American GFR(CKD) >90 (>60 ml/min/1.73 sqM); Potassium 3.7 mmol/L (3.5-5.1); Sodium 134 mmol/L (137-145); Total Bilirubin 0.6 mg/dL (0.2-1.3); Total Protein 5.8 g/dL (6.3-8.2)
--- NOTE | 2024-04-08 14:16 | P.PN ---
Subjective Progress Note Date: 04/08/24 Hospital Course: Patient is a 63-year-old male with a past medical history of anxiety, EtOH abuse drinking a reported 1-2 bottles of wine daily, alcohol withdrawal seizures, hypertension, hypothyroidism status post thyroidectomy, TBI with previous brain bleed and anxiety. Patient presented to the emergency department via EMS secondary to reports of witnessed seizure-like activity on his couch lasting approximately 1 minute with complete loss of consciousness. Upon arrival to the hospital, patient underwent evaluation in the emergency department. Vital signs upon arrival show blood pressure 164/99, heart rate 104, respiratory rate 18, temp 98.8 F, and SpO2 of 100% on room air. Labs completed and reviewed. CBC showing macrocytic anemia with hemoglobin of 12.0 and MCV of 100.1. BMP showing hyponatremia with sodium 134, hypokalemia with potassium of 3.2, and high anion gap metabolic alkalosis with chloride of 97, bicarb of 21, and anion gap of 16. Renal function also elevated from baseline with BUN of 13, creatinine 1.21, and GFR of 64 with baseline creatinine of 0.8 and GFR greater than 90. Blood glucose 116. Magnesium 1.5. Liver profile showing hyperbilirubinemia with total bili of 2.1 and elevated ALT of 79 otherwise normal findings. Serum alcohol level was less than 10. EKG completed showing sinus tachycardia at 102 bpm with no significant T wave or ST abnormality showing no signs of acute ischemia upon my personal review and interpretation. Electrolyte abnormalities replaced in the ED. Patient admitted under our services at this time for medical detox and evaluation of recurrent seizure activity. Neurology consulted secondary to recurrent seizure activity over the last week one episode while intoxicated and one episode when alcohol was less than 10. Physical exam: Patient seen and fully evaluated at bedside. He is currently showing improvement of tremors. Discussed with patient we will begin to taper down Librium and decrease dose to 25 mg 3 times daily today with hopeful plans for discharge within the next 24 to 48 hours. Patient denies having any other needs or complaints at this time. Vital signs reviewed and stable. General: Nontoxic, no distress and appears stated age. Derm: Skin warm and dry, normal coloration for ethnicity. Head: Atraumatic, normocephalic and symmetric. Large laceration to right forehead above eyebrow, sutures in place. Large bruise and laceration to right upper extremity. Eyes: EOM's intact, no lid lag, and anicteric sclera Mouth: no lip lesions, mucus membranes moist Cardiovascular: regular rate and rhythm with normal S1S2, no murmur, positive posterior tibial pulses bilaterally, and cap refill < 2 seconds. Lungs: Respirations even, regular, and unlabored on room air. Lungs CTA bilaterally, no rhonchi, no rales, no wheezing, and no accessory muscle usage. Abdominal: soft, nontender to palpation, no guarding, no appreciable organomegaly Ext: ROM intact. No gross muscle atrophy, no edema, no contractures Neuro: Speech clear, face symmetrical and CN II-XII grossly intact with no noted focal neuro deficits. Moderate tremors noted bilateral upper extremities and face. Psych: Alert and oriented to person, place, time, and situation. Appropriate and pleasant affect. Assessment and Plan of Care: Alcohol withdrawal in active alcoholic Recurrent witnessed seizure activity Hyperbilirubinemia with elevated transaminase, secondary to daily alcohol abuse Bicytopenia, secondary to daily alcohol abuse Acute kidney injury, improved with IV fluid hydration High anion gap metabolic alkalosis, resolved with IV fluid hydration Electrolyte abnormalities: hyponatremia, hypokalemia, and hypomagnesemia. Resolved after replacement. -Continue monitoring of CIWA scores and patient to be medicated with Ativan 0.5 mg every 4 hours as needed for CIWA score of 4-5, Ativan 1 mg every 4 hours for CIWA score of 6-7, Ativan 2 mg every 3 hours CIWA score of 8-9, and Ativan 2 mg every 2 hours forr CIWA score of 10 or greater. -Begin to decrease Librium taper down to 25 mg 3 times daily. Hold for sedation. -Continue IV hydration with 0.9% normal saline at 100 cc/h -Thiamine 100 mg daily, and Multivitamin daily, and Folate 1 mg daily -Continue to maintain seizure, fall, and aspiration precautions. -Urine drug screen was only positive for benzodiazepines and which patient is receiving during this hospitalization. -EEG completed and negative for epileptiform discharges showing normal routine EEG. -Neurology following recommending continuation of Keppra 500 mg every 12 hours. -MRI brain completed and reviewed showing postcraniotomy changes with no evidence of intracranial mass, acute/subacute infarct, or abnormal enhancement with minimal nonspecific white matter changes. -Continued close monitoring of electrolytes and replace as needed. -Telemetry monitoring. -Patient informed of [place] state law stating no driving until seizure free for 6 months. Patient also instructed to avoid climbing ladders, operating dangerous or heavy machinery or unsupervised swimming until seizure free for 6 months. Hypothyroidism status post thyroidectomy secondary to thyroid cancer -Continue levothyroxine 175 mcg daily. -TSH 51.000 and free T4 of 0.63. This is suspected to be secondary to medic ation noncompliance. Discussed with patient in detail, patient admits to not always taking his medication as prescribed. Patient educated on the importance of medication compliance status post this thyroidectomy and risks of nonadherence. Patient to follow-up outpatient with PCP in 6 weeks for repeat testing of his thyroid level. Hypertension -Continue daily medication regimen with amlodipine 5 mg daily and lisinopril 10 mg daily. Anxiety -Continue daily medication regimen with BuSpar 10 mg twice daily and Zoloft 200 mg daily Data and imaging reviewed: -Morning Labs reviewed. CBC showing macrocytic anemia with hemoglobin of 11.4. BMP showing mild hyponatremia with sodium of 134 otherwise normal findings. Magnesium 1.8. -Vital signs reviewed. Blood pressure 103/67, heart rate 54, respiratory rate 16, temp 97.6 F, and SpO2 of 99% on room air. -EEG completed and reviewed showing negative for epileptiform discharges showing normal routine EEG. -MRI brain completed and reviewed showing postcraniotomy changes with no evidence of intracranial mass, acute/subacute infarct, or abnormal enhancement with minimal nonspecific white matter changes. CODE STATUS: Full code DVT prophylaxis: Lovenox Anticipated discharge date: Pending clinical course, likely begin to wean patient down from Librium tomorrow morning with anticipated discharge being 04/09/[address]: Home Patient was seen independently by Nurse Practitioner. This document was prepared using [employer] dictation software. Please allow for errors in yarn handler while rare they do occur. .I reviewed the documentation as provided by the DOMINIQUE above, who is the original author of this note. I agree with the documented assessment and plan, with the following changes: none Objective - Vital Signs Vital signs: Vital Signs Temp 97.6 F 04/08/24 07:00 Pulse 54 L 04/08/24 07:00 Resp 16 04/08/24 07:00 BP 103/67 04/08/24 07:00 Pulse Ox 99 04/08/24 07:00 FiO2 Intake & Output 04/07/24 04/08/24 04/08/24 18:59 06:59 18:59 Intake Total 1400 1200 Balance 1400 1200 Intake: Intake, IV Titration 1400 1200 Amount Magnesium Sulfate-D5w Pmx 200 1 gm In Dextrose/Water 1 100ml.bag @ 100 mls/hr IVPB Q1H [facility] Rx#: [id number] Sodium Chloride 0.9% 1, 1200 1200 000 ml @ 100 mls/hr IV . Q10H [facility] Rx#:[id number] Other: Voiding Method Toilet Toilet Urinal Urinal - Labs CBC & Chem 7: 04/10/24 06:09 04/10/24 06:09 Labs: Abnormal Lab Results - Last 24 Hours (Table) 04/07/24 04/07/24 Range/Units 05:01 05:01 WBC 4.35 L (4.50-10.00) X 10*3/uL RBC 3.11 L (4.40-5.60) X 10*6/uL Hgb 10.5 L (13.0-17.0) g/dL Hct 31.4 L (39.6-50.0) % MCV 101.0 H (80.0-97.0) FL MCH 33.8 H (27.0-32.0) pg MPV 9.3 L (9.5-12.2) FL BUN/Creatinine Ratio 8.64 L (12.00-20.00) Ratio Calcium 8.0 L (8.7-10.3) mg/dL AST 36 H (14-35) U/L Total Protein 5.2 L (6.2-8.2) g/dL Albumin 3.4 L (3.8-4.9) g/dL
[2024-04-08] MEDS: chlordiazePOXIDE 25 MG CAP PO SCH (15:09)
[2024-04-09 06:31] LABS: Glucose,Whole Blood 88 mg/dL (70-110)
--- NOTE | 2024-04-09 07:56 | CT ---
EXAMINATION TYPE: CT brain wo con DATE OF EXAM: 04/09/2024 COMPARISON: 03/31/2024 HISTORY: Fall CT DLP: 1192.[address] of the brain was performed. The ventricles, basal cisterns and sulci overlying the cerebral convexities demonstrate mild enlargem ent. There is no evidence for intracranial hemorrhage or sulcal effacement. There is decreased attenuation about the periventricular white matter and deep white matter of both c erebral hemispheres, compatible with chronic small vessel ischemia. Differential diagnosis does inclu de demyelination. No mass effects are seen.No midline shift. Right parietal craniotomy changes remain unchanged. If symptoms persist consider MRI. IMPRESSION: 1. Age related atrophic and chronic small vessel ischemic change without acute intracranial process s een at this time.
[2024-04-09 10:36] LABS: HCT 35.6 % (39.6-50.0); HGB 11.6 g/dL (13.0-17.0); MCH 34.2 pg (27.0-32.0); MCHC 32.6 g/dL (32.0-37.0); Mean Platelet Volume 9.1 FL (9.5-12.2); NRBC Per 100 WBC 0 X 10*3/uL (0.00-0.01); Platelet Count 157 X 10*3/uL (140-440); RBC 3.39 X 10*6/uL (4.40-5.60); RDW 13.2 % (11.5-14.5)
[2024-04-09 10:45] LABS: ALT 31 U/L (10-49); AST 31 U/L (14-35); Albumin 3.8 g/dL (3.8-4.9); Alkaline Phosphatase 88 U/L (41-126); Blood Urea Nitrogen 7.4 mg/dL (9.0-27.0); Calcium 8.5 mg/dL (8.7-10.3); Carbon Dioxide 22.3 mmol/L (21.6-31.8); Chloride 106 mmol/L (96-109); Globulin 1.9 g/dL (1.6-3.3); Glucose 81 mg/dL (70-110); Magnesium 1.5 mg/dL (1.5-2.4); Potassium 3.6 mmol/L (3.5-5.5); Sodium 137 mmol/L (135-145); Total Bilirubin 0.4 mg/dL (0.3-1.2); Total Protein 5.7 g/dL (6.2-8.2)
--- NOTE | 2024-04-09 10:57 | XR ---
EXAMINATION TYPE: XR Hip Bilateral 2 views each side Complete DATE OF EXAM: 04/09/2024 COMPARISON: 12/17/2020 HISTORY: 63-year-old male and witnessed fall, pain FINDINGS: There is mild degenerative spurring at both hips. Limited assessment of the lower femoral necks due t o external rotation of the hips during positioning. No obvious displaced fracture is seen. SI joints and pubic symphysis appear intact. IMPRESSION: Some limitation due to patient's hip positioning. No definite acute osseous abnormality seen. Mild os teoarthritic change of both hips.
--- NOTE | 2024-04-09 13:21 | P.PN ---
Subjective Progress Note Date: 04/09/24 Hospital Course: Patient is a 63-year-old male with a past medical history of anxiety, EtOH abuse drinking a reported 1-2 bottles of wine daily, alcohol withdrawal seizures, hypertension, hypothyroidism status post thyroidectomy, TBI with previous brain bleed and anxiety. Patient presented to the emergency department via EMS secondary to reports of witnessed seizure-like activity on his couch lasting approximately 1 minute with complete loss of consciousness. Upon arrival to the hospital, patient underwent evaluation in the emergency department. Vital signs upon arrival show blood pressure 164/99, heart rate 104, respiratory rate 18, temp 98.8 F, and SpO2 of 100% on room air. Labs completed and reviewed. CBC showing macrocytic anemia with hemoglobin of 12.0 and MCV of 100.1. BMP showing hyponatremia with sodium 134, hypokalemia with potassium of 3.2, and high anion gap metabolic alkalosis with chloride of 97, bicarb of 21, and anion gap of 16. Renal function also elevated from baseline with BUN of 13, creatinine 1.21, and GFR of 64 with baseline creatinine of 0.8 and GFR greater than 90. Blood glucose 116. Magnesium 1.5. Liver profile showing hyperbilirubinemia with total bili of 2.1 and elevated ALT of 79 otherwise normal findings. Serum alcohol level was less than 10. EKG completed showing sinus tachycardia at 102 bpm with no significant T wave or ST abnormality showing no signs of acute ischemia upon my personal review and interpretation. Electrolyte abnormalities replaced in the ED. Patient admitted under our services at this time for medical detox and evaluation of recurrent seizure activity. Neurology consulted secondary to recurrent seizure activity over the last week one episode while intoxicated and one episode when alcohol was less than 10. EEG completed and reviewed showing negative for epileptiform discharges showing normal routine EEG. MRI brain completed and reviewed showing postcraniotomy changes with no evidence of intracranial mass, acute/subacute infarct, or abnormal enhancement with minimal nonspecific white matter changes. Neurologist starting patient on Keppra 500 mg twice daily. Physical exam: Patient seen and fully evaluated at bedside. Patient with minimal tremors to hands this morning otherwise showing no signs of withdrawal at this time. Patient did have unwitnessed fall this morning. He denies having any injuries with the exception of ripping IV out during fall. Vital signs reviewed and stable. General: Nontoxic, no distress and appears stated age. Derm: Skin warm and dry, normal coloration for ethnicity. Head: Atraumatic, normocephalic and symmetric. Large laceration to right forehead above eyebrow, sutures in place. Large bruise and laceration to right upper extremity. Eyes: EOM's intact, no lid lag, and anicteric sclera Mouth: no lip lesions, mucus membranes moist Cardiovascular: regular rate and rhythm with normal S1S2, no murmur, positive posterior tibial pulses bilaterally, and cap refill < 2 seconds. Lungs: Respirations even, regular, and unlabored on room air. Lungs CTA bilaterally, no rhonchi, no rales, no wheezing, and no accessory muscle usage. Abdominal: soft, nontender to palpation, no guarding, no appreciable organomegaly Ext: ROM intact. No gross muscle atrophy, no edema, no contractures Neuro: Speech clear, face symmetrical and CN II-XII grossly intact with no noted focal neuro deficits. Moderate tremors noted bilateral upper extremities and face. Psych: Alert and oriented to person, place, time, and situation. Appropriate and pleasant affect. Assessment and Plan of Care: Alcohol withdrawal in active alcoholic Recurrent witnessed seizure activity Hyperbilirubinemia with elevated transaminase, secondary to daily alcohol abuse Bicytopenia, secondary to daily alcohol abuse Acute kidney injury, resolved with IV fluid hydration High anion gap metabolic alkalosis, resolved with IV fluid hydration Electrolyte abnormalities: hyponatremia, hypokalemia, and hypomagnesemia. Resolved after replacement. -Continue monitoring of CIWA scores and patient to be medicated with Ativan 0.5 mg every 4 hours as needed for CIWA score of 4-5, Ativan 1 mg every 4 hours for CIWA score of 6-7, Ativan 2 mg every 3 hours CIWA score of 8-9, and Ativan 2 mg every 2 hours forr CIWA score of 10 or greater. -Begin to decrease Librium taper down to 25 mg 3 times daily. Hold for sedation. -Continue IV hydration with 0.9% normal saline at 100 cc/h -Thiamine 100 mg daily, and Multivitamin daily, and Folate 1 mg daily -Continue to maintain seizure, fall, and aspiration precautions. -Urine drug screen was only positive for benzodiazepines and which patient is receiving during this hospitalization. -EEG completed and negative for epileptiform discharges showing normal routine EEG. -Neurology following recommending continuation of Keppra 500 mg every 12 hours. -MRI brain completed and reviewed showing postcraniotomy changes with no evidence of intracranial mass, acute/subacute infarct, or abnormal enhancement with minimal nonspecific white matter changes. -Continued close monitoring of electrolytes and replace as needed. -Telemetry monitoring. -Patient informed of [place] state law stating no driving until seizure free for 6 months. Patient also instructed to avoid climbing ladders, operating dangerous or heavy machinery or unsupervised swimming until seizure free for 6 months. Unwitnessed fall -Per nursing report, patient had episode of confusion and unwitnessed fall in room this morning. Patient denied having any injuries. -Patient underwent CT head which was negative for acute intracranial process showing age-related atrophic and chronic small vessel ischemic changes. -X-ray bilateral hips was negative for acute fracture or dislocation showing no definitive acute osseous abnormality with mild osteoarthritic changes noted. -Consult was placed to PT/OT for evaluation secondary to recurrent falls at home and now in hospital. -Continue fall precautions. Hypothyroidism status post thyroidectomy secondary to thyroid cancer -Continue levothyroxine 175 mcg daily. -TSH 51.000 and free T4 of 0.63. This is suspected to be secondary to medication noncompliance. Discussed with patient in detail, patient admits to not always taking his medication as prescribed. Patient educated on the importance of medication compliance status post this thyroidectomy and risks of nonadherence. Patient to follow-up outpatient with PCP in 6 weeks for repeat testing of his thyroid level. Hypertension -Continue daily medication regimen with amlodipine 5 mg daily and lisinopril 10 mg daily. Anxiety -Continue daily medication regimen with BuSpar 10 mg twice daily and Zoloft 200 mg daily Patient's mother and father to hospital at this time requesting evaluation of competency on patient. Stating they are concerned that he is unable to make sound judgment and choices, unable to provide proper hygienic care or care for himself independently and are in fear of his life and the lives of others. Requesting evaluation by psychiatry to determine competency. Order placed for consult to psychiatrist at this time. Patient updated on delay of discharge pending clearance by psychiatry. Data and imaging reviewed: -Morning Labs reviewed. CBC showing macrocytic anemia with hemoglobin of 11.6 and MCV of 105.0. BMP remains unremarkable. Magnesium was low at 1.5 and orders placed for replacement. -Vital signs reviewed. Blood pressure 136/79, heart rate 53, respiratory rate 18, temp 97.4 F, and SpO2 100% on room air. -CT head completed and radiology report reviewed showing negative for acute intracranial process showing age-related atrophic and chronic small vessel ischemic changes. -X-ray bilateral hips reviewed and reported to be negative for acute fracture or dislocation showing no definitive acute osseous abnormality with mild ost eoarthritic changes noted. CODE STATUS: Full code DVT prophylaxis: Lovenox Anticipated discharge date: Pending evaluation by psychiatrist. Anticipated discharge place: Pending evaluation by psychiatrist Patient was seen independently by Nurse Practitioner. This document was prepared using [employer] dictation software. Please allow for errors in interior decorator painting while rare they do occur. .I reviewed the documentation as provided by the DOMINIQUE above, who is the original author of this note. I agree with the documented assessment and plan, with the following changes: none Objective - Vital Signs Vital signs: Vital Signs Temp 97.4 F L 04/09/24 07:00 Pulse 53 L 04/09/24 07:00 Resp 18 04/09/24 07:00 BP 136/79 04/09/24 07:00 Pulse Ox 100 04/09/24 07:00 FiO2 Intake & Output 04/08/24 04/09/24 04/09/24 18:59 06:59 18:59 Intake Total 240 Output Total 700 400 Balance -700 -160 Intake: Oral 240 Output: Urine 700 400 Other: Voiding Method Toilet Toilet Urinal Urinal # Voids 6 3 # Bowel Movements 2 - Labs CBC & Chem 7: 04/10/24 06:09 04/10/24 06:09 Labs: Abnormal Lab Results - Last 24 Hours (Table) 04/08/24 04/08/24 Range/Units 09:55 09:55 RBC 3.32 L (4.30-5.90) m/uL Hgb 11.4 L (13.0-17.5) gm/dL Hct 34.4 L (39.0-53.0) % MCV 103.6 H (80.0-100.0) fL Sodium 134 L (137-145) mmol/L BUN 8 L (9-20) mg/dL Total Protein 5.8 L (6.3-8.2) g/dL
--- NOTE | 2024-04-09 13:59 | P.CN ---
Psychiatric Consult - . Consult date: 04/09/24 Consult:: 04/09/24 12:52 IDENTIFYING DATA: This patient is a 63-year-old male, currently lives alone in a house, he is single, he has 2 kids REASON FOR REFERRAL: Psychiatry was consulted for capacity HISTORY OF PRESENT ILLNESS: The patient presented to the hospital initially on 04/05 brought in by EMS for recurrent seizures falls at home, patient has a history of alcohol abuse, he was admitted for alcohol withdrawal. Patient had a negative blood alcohol level, hypothyroidism. Incubator Operator spoke to patient's family with his consent outside of the room and hallway, they also endorse that patient had a long history of chronic alcohol use, that his cognition has been declining. He states that he has had repeated falls inside and outside of the house. They state that his house is not clean at all, he has not been eating taking care of himself unsure if he is even taking medications. They state that he has very poor decision-making and are concerned of his safety. Incubator Operator spoke with patient at the bedside today. He was fairly pleasant with headline writer he had a laceration above his right eyebrow from a previous fall. He was alert and oriented x 3. He was somewhat hesitant with his answers and had some thought blocking. He claims that he had a seizure on Sunday was brought into the hospital. He states that he drinks alcohol 1-2 bottles of wine a day. Claims that it has gotten him into trouble in the past, makes him not want to do much in the house and also not take care of himself. He claims that it also causes him to have anxiety, reports very mild depression which is being treated with Zoloft. He states that he has been neglecting his bills, claims that there are several stairs in his house which he has fallen on before. He claims his sleep and appetite have been on and off. We spoke in depth about the challenges at home with regards to his safety including stairs, repeated falls and having seizures reflected on the possible risk of him living alone in these conditions however was minimizing them and stated that "I can stop drinking alcohol now and be fine". He was not able to appreciate the true risk of possible at home or other problems. At this time patient denies any suicidal or homical id eations, intent or plan. Patient denies any auditory, visual hallucinat and also drinking alcohol, patientions and denies any paranoia or delusions. Patients admits to using alcohol as noted above. Denies any other recreational drug use. PAST PSYCHIATRIC HISTORY: Patient has a a history of alcohol use disorder, anxiety/depression. Patient is currently on BuSpar, Zoloft. Patient denies any previous psychiatric hospitalizations. Patient denies any psychiatric outpatient follow-up. Patient denies any history of suicide attempts in the past. Past Medical History Past Medical History: Blood Disorder, Cancer, GERD/Reflux, Hyperlipidemia, Hypertension, Seizure Disorder, Thyroid Disorder Additional Past Medical History / Comment(s): thyroid CA, hx seizure aug 2022., anerusym, anemia History of Any Multi-Drug Resistant Organisms: None Reported Past Surgical History: Hernia Repair Additional Past Surgical History / Comment(s): neck lump 1981 benign., nasal surgery, biopsy on lump on right neck-, thyroidectomy Past Anesthesia/Blood Transfusion Reactions: No Reported Reaction Past Psychological History: Anxiety Smoking Status: Never smoker Past Alcohol Use History: Daily Past Drug Use History: None Reported ALLERGIES: as per EMR. CHEMICAL DEPENDENCY HISTORY: as per HPI. FAMILY PSYCHIATRIC/SUBSTANCE USE HISTORY: Denies SOCIAL HISTORY: Patient was born and raised in [place] and then moved to [place]. He claims that he completed high school and did a bachelor's degree in construction management. 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 States that he lives alone in a house, he is single he has 2 kids. States that he did go to nursing home in the past for a DUI in 2017. MENTAL STATUS EXAM: General Appearance: Patient appears to be thin, wearing a hospital gown, older than stated age is alert, temps to cooperate. Has a old laceration over his right eyebrow. Patient appears to have poor hygiene and grooming wearing hospital gown with fair eye contact. Behavior: Patient is calmly lying in bed without any agitated behavior. Minimizing, evasive Speech: Patient's speech is fluent and nonpressured. Hesitant Mood/Affect: Patient reports their mood is "a bit of anxiety", affect is congruent and constricted Suicidality/Homicidality: Patient denies having any suicidal or homicidal ideation intent or plan. Perceptions: Patient denies any visual hallucinations and denies any auditory hallucinations Though content/process: Minimizing his risks at home of living independently, evasive and vague Memory and concentration: AOX3, fair attention span. Cannot spell "WORLD" backwards. Was able to recall 1 of 3 words after 5 minutes. Judgment and insight: Poor IMPRESSIONS: Alcohol use disorder, severe r/o neurocognitive disorder History of depression and anxiety disorder PLAN: -At this time patient DOES NOT meet criteria for inpatient psychiatric admission. -Patient DOES NOT have decision making capacity with regards to his living situation and care. he is unable to reason through and communicate/appreciate the risks, benefits and alternatives to treatment and living/placement options. -Delirium precautions recommended with patient including - avoiding use of narcotics and CNA PCT sedatives, limit anticholinergic medications when possible, frequent re-orientation, minimize use of restraints, open window shades during the day and close them at night -Would recommend the following medication changes/additions: please attempt to cut back/taper librium for etoh withdrawal. Can continue with medications as prescribed. -CIWA protocol with PRN Ativan for alcohol withdrawal. Continue to monitor vital signs. -workers compensation attorney to provide patient with outpatient mental health/psychiatry resources for appropriate follow up upon discharge -Incubator Operator spoke with patient about substance abuse and the harmful effects on medical and mental health, patient verbally understood and agreed. -workers compensation attorney to provide patient with access line number to call for inpatient substance rehab -Communicated plan to patient's nurse and patients patient case coordinator and also family. Was discussed that patient would be at high risk for danger at home to himself due to his poor functionality/capabilities, hx of falls and seizures, along with his etoh abuse. Advised them to proceed for gaurdianship to help with safe placement in hopefully at least a supervised living facility. -Psychiatry will sign off at this time -Please contact with any questions. 04/09/24 13:47
[2024-04-09] MEDS: MAGNESIUM SULFATE-D5W PMX 1 GM in DEXTROSE/WATER 1 100ML.BAG IVPB SCH (15:02)
[2024-04-09] MEDS: POTASSIUM CHLORIDE ER 20 MEQ TAB.ER PO STA (15:02)
[2024-04-09] MEDS: chlordiazePOXIDE 25 MG CAP PO SCH (20:38)
[2024-04-10 10:36] LABS: HCT 31.7 % (39.6-50.0); HGB 10.4 g/dL (13.0-17.0); MCHC 32.8 g/dL (32.0-37.0); MCV 103.6 FL (80.0-97.0); Mean Platelet Volume 9.2 FL (9.5-12.2); NRBC Per 100 WBC 0 X 10*3/uL (0.00-0.01); Platelet Count 143 X 10*3/uL (140-440); RBC 3.06 X 10*6/uL (4.40-5.60); RDW 13.2 % (11.5-14.5); WBC 4.53 X 10*3/uL (4.50-10.00)
[2024-04-10 10:57] LABS: ALT 28 U/L (10-49); AST 26 U/L (14-35); Albumin 3.5 g/dL (3.8-4.9); Albumin/Globulin Ratio 2.06 Ratio (1.60-3.17); Alkaline Phosphatase 75 U/L (41-126); BUN/Creat Ratio 8.56 Ratio (12.00-20.00); Blood Urea Nitrogen 7.7 mg/dL (9.0-27.0); Calcium 8.7 mg/dL (8.7-10.3); Carbon Dioxide 23.1 mmol/L (21.6-31.8); Chloride 107 mmol/L (96-109); Globulin 1.7 g/dL (1.6-3.3); Glucose 85 mg/dL (70-110); Magnesium 1.9 mg/dL (1.5-2.4); Potassium 4.4 mmol/L (3.5-5.5); Sodium 140 mmol/L (135-145); Total Bilirubin 0.3 mg/dL (0.3-1.2); Total Protein 5.2 g/dL (6.2-8.2)
--- NOTE | 2024-04-10 14:42 | P.PN ---
Subjective Progress Note Date: 04/10/24 Hospital Course: Patient is a 63-year-old male with a past medical history of anxiety, EtOH abuse drinking a reported 1-2 bottles of wine daily, alcohol withdrawal seizures, hypertension, hypothyroidism status post thyroidectomy, TBI with previous brain bleed and anxiety. Patient presented to the emergency department via EMS secondary to reports of witnessed seizure-like activity on his couch lasting approximately 1 minute with complete loss of consciousness. Upon arrival to the hospital, patient underwent evaluation in the emergency department. Vital signs upon arrival show blood pressure 164/99, heart rate 104, respiratory rate 18, temp 98.8 F, and SpO2 of 100% on room air. Labs completed and reviewed. CBC showing macrocytic anemia with hemoglobin of 12.0 and MCV of 100.1. BMP showing hyponatremia with sodium 134, hypokalemia with potassium of 3.2, and high anion gap metabolic alkalosis with chloride of 97, bicarb of 21, and anion gap of 16. Renal function also elevated from baseline with BUN of 13, creatinine 1.21, and GFR of 64 with baseline creatinine of 0.8 and GFR greater than 90. Blood glucose 116. Magnesium 1.5. Liver profile showing hyperbilirubinemia with total bili of 2.1 and elevated ALT of 79 otherwise normal findings. Serum alcohol level was less than 10. EKG completed showing sinus tachycardia at 102 bpm with no significant T wave or ST abnormality showing no signs of acute ischemia upon my personal review and interpretation. Electrolyte abnormalities replaced in the ED. Patient admitted under our services at this time for medical detox and evaluation of recurrent seizure activity. Neurology consulted secondary to recurrent seizure activity over the last week one episode while intoxicated and one episode when alcohol was less than 10. EEG completed and reviewed showing negative for epileptiform discharges showing normal routine EEG. MRI brain completed and reviewed showing postcraniotomy changes with no evidence of intracranial mass, acute/subacute infarct, or abnormal enhancement with minimal nonspecific white matter changes. Neurologist starting patient on Keppra 500 mg twice daily.Patient was evaluated by psychiatrist stating patient DOES NOT have decision-making capacity with regards to his living situation and care and is unable to reason through and communicate/appreciate the risks, be nefits, and alternatives to treatment and living/placement options. Patient's mother and father were advised by psychiatrist to proceed with obtaining guardianship of patient for safe placement and parents are currently working with social work to obtain. Physical exam: Patient seen and fully evaluated at bedside. He appeared to be doing well, no tremors noted at this time. We will discontinue Librium and complete taper. Consider remains at bedside maintaining patient safety. Patient updated on plan as we're waiting his parents to obtain guardianship received placement and he verbalized understanding at this time. Vital signs reviewed and stable. General: Nontoxic, no distress and appears stated age. Derm: Skin warm and dry, normal coloration for ethnicity. Head: Atraumatic, normocephalic and symmetric. Large laceration to right forehead above eyebrow, sutures in place. Large bruise and laceration to right upper extremity. Eyes: EOM's intact, no lid lag, and anicteric sclera Mouth: no lip lesions, mucus membranes moist Cardiovascular: regular rate and rhythm with normal S1S2, no murmur, positive posterior tibial pulses bilaterally, and cap refill < 2 seconds. Lungs: Respirations even, regular, and unlabored on room air. Lungs CTA bilaterally, no rhonchi, no rales, no wheezing, and no accessory muscle usage. Abdominal: soft, nontender to palpation, no guarding, no appreciable organomegaly Ext: ROM intact. No gross muscle atrophy, no edema, no contractures Neuro: Speech clear, face symmetrical and CN II-XII grossly intact with no noted focal neuro deficits. Moderate tremors noted bilateral upper extremities and face. Psych: Alert and oriented to person, place, time, and situation. Appropriate and pleasant affect. Assessment and Plan of Care: Alcohol withdrawal in active alcoholic Recurrent witnessed seizure activity Hyperbilirubinemia with elevated transaminase, secondary to daily alcohol abuse Bicytopenia, secondary to daily alcohol abuse Acute kidney injury, resolved with IV fluid hydration High anion gap metabolic alkalosis, resolved with IV fluid hydration Electrolyte abnormalities: hyponatremia, hypokalemia, and hypomagnesemia. Resolved after replacement. -Continue monitoring of CIWA scores and patient to be medicated with Ativan 0.5 mg every 4 hours as needed for CIWA score of 4-5, Ativan 1 mg every 4 hours for CIWA score of 6-7, Ativan 2 mg every 3 hours CIWA score of 8-9, and Ativan 2 mg every 2 hours forr CIWA score of 10 or greater. -Librium was tapered down and discontinued with last dose morning of 04/10/24. -Thiamine 100 mg daily, and Multivitamin daily, and Folate 1 mg daily -Continue to maintain seizure, fall, and aspiration precautions. -Urine drug screen was only positive for benzodiazepines and which patient is receiving during this hospitalization. -EEG completed and negative for epileptiform discharges showing normal routine EEG. -MRI brain completed and reviewed showing postcraniotomy changes with no evidence of intracranial mass, acute/subacute infarct, or abnormal enhancement with minimal nonspecific white matter changes. -Neurology Evaluated recommending continuation of Keppra 500 mg every 12 hours. -Patient informed of [place] state law stating no driving until seizure free for 6 months. Patient also instructed to avoid climbing ladders, operating dangerous or heavy machinery or unsupervised swimming until seizure free for 6 months. Rule out neurocognitive disorder -Patient was evaluated by psychiatrist stating patient DOES NOT have decision- making capacity with regards to his living situation and care and is unable to reason through and communicate/appreciate the risks, benefits, and alternatives to treatment and living/placement options -Patient's mother and father were advised by psychiatrist to proceed with obtaining guardianship of patient for safe placement and parents are currently working with social work to obtain. Unwitnessed fall -Per nursing report, patient had episode of confusion and unwitnessed fall in room on 04/09/24. Patient denied having any injuries. -Patient underwent CT head which was negative for acute intracranial process showing age-related atrophic and chronic small vessel ischemic changes. -X-ray bilateral hips was negative for acute fracture or dislocation showing no definitive acute osseous abnormality with mild osteoarthritic changes noted. -Consult was placed to PT/OT for evaluation secondary to recurrent falls at home and now in hospital. -Continue fall precautions. Hypothyroidism status post thyroidectomy secondary to thyroid cancer -Continue levothyroxine 175 mcg daily. -TSH 51.000 and free T4 of 0.63. This is suspected to be secondary to medication noncompliance. Discussed with patient in detail, patient admits to not always taking his medication as prescribed. Patient educated on the importance of medication compliance status post this thyroidectomy and risks of nonadherence. Patient to follow-up outpatient with PCP in 6 weeks for repeat testing of his thyroid level. Hypertension -Continue daily medication regimen with amlodipine 5 mg daily and lisinopril 10 mg daily. Anxiety -Continue daily medication regimen with BuSpar 10 mg twice daily and Zoloft 200 mg daily Data and imaging reviewed: -Morning Labs reviewed. CBC showing macrocytic anemia with hemoglobin of 10.4 and MCV of 103.6. BMP unremarkable.. Magnesium 1.9. Liver profile unremarkable with the exception of hypoalbuminemia with albumin of 3.5. -Vital signs reviewed. Blood pressure 127/78, heart rate 66, respiratory rate 17, temp 97.4F, SpO2 99% on room air. CODE STATUS: Full code DVT prophylaxis: Lovenox Anticipated discharge date: Awaiting guardianship and safe discharge plan Anticipated discharge place: Pending Guardianship hearing and safe discharge plan Patient was seen independently by Nurse Practitioner. This document was prepared using [employer] dictation software. Please allow for errors in math and sciences department chair while rare they do occur. .I reviewed the documentation as provided by the DOMINIQUE above, who is the original author of this note. I agree with the documented assessment and plan, with the following changes: none Objective - Vital Signs Vital signs: Vital Signs Temp 97.4 F L 04/10/24 07:28 Pulse 66 04/10/24 07:28 Resp 17 04/10/24 07:28 BP 127/78 04/10/24 07:28 Pulse Ox 99 04/10/24 07:28 FiO2 Intake & Output 04/09/24 04/10/24 04/10/24 18:59 06:59 18:59 Intake Total 1940 Output Total 400 Balance 1540 Intake: Intake, IV Titration 1500 Amount Magnesium Sulfate-D5w Pmx 300 1 gm In Dextrose/Water 1 100ml.bag @ 100 mls/hr IVPB Q1H [facility] Rx#: [id number] Sodium Chloride 0.9% 1, 1200 000 ml @ 100 mls/hr IV . Q10H [facility] Rx#:[id number] Oral 440 Output: Urine 400 Other: Voiding Method Urinal Toilet Urinal # Voids 7 # Bowel Movements 2 - Labs CBC & Chem 7: 04/10/24 06:09 04/10/24 06:09 Labs: Abnormal Lab Results - Last 24 Hours (Table) 04/09/24 04/09/24 Range/Units 07:24 07:24 RBC 3.39 L (4.40-5.60) X 10*6/uL Hgb 11.6 L (13.0-17.0) g/dL Hct 35.6 L (39.6-50.0) % MCV 105.0 H (80.0-97.0) FL MCH 34.2 H (27.0-32.0) pg MPV 9.1 L (9.5-12.2) FL BUN 7.4 L (9.0-27.0) mg/dL BUN/Creatinine Ratio 7.40 L (12.00-20.00) Ratio Calcium 8.5 L (8.7-10.3) mg/dL Total Protein 5.7 L (6.2-8.2) g/dL
--- NOTE | 2024-04-11 10:35 | P.PN ---
Subjective Progress Note Date: 04/11/24 63-year-old male with a PMH of anxiety, EtOH abuse drinking a reported 1-2 bottles of wine daily, alcohol withdrawal seizures, HTN, hypothyroidism status post thyroidectomy, TBI with previous brain bleed and anxiety. Patient presented to the emergency department via EMS secondary to reports of witnessed seizure- like activity on his couch lasting approximately 1 minute with complete loss of consciousness. Upon arrival to the hospital, patient underwent evaluation in the emergency department. BP 164/99, HR 104, RR 18, T 98.8 F, and SpO2 of 100% on RA. CBC showing Hg of 12.0 and MCV of 100.1. BMP showing Na 134, K 3.2, chloride of 97, bicarb of 21, and anion gap of 16. BUN of 13, creatinine 1.21, and GFR of 64. Blood glucose 116. Magnesium 1.5. Liver profile showing T. Bili of 2.1 and ALT of 79. Serum alcohol level was less than 10. EKG showing sinus tachycardia at 102 bpm with no significant T wave or ST abnormality. Electrolyte abnormalities replaced in the ED. Patient admitted under our services at this time for medical detox and evaluation of recurrent seizure activity. Neurology consulted. EEG showing negative for epileptiform discharges showing normal routine EEG. MRI brain showing postcraniotomy changes with no evidence of intracranial mass, acute/subacute infarct, or abnormal enhancement with minimal nonspecific white matter changes. Neurologist starting patient on Keppra 500 mg twice daily. Patient was evaluated by psychiatrist stating patient DOES NOT have decision-making capacity with regards to his living situation and care and is unable to reason through and communicate/appreciate the risks, benefits, and alternatives to treatment and living/placement options. Patient's mother and father were advised by psychiatrist to proceed with obtaining guardianship of patient for safe placement and parents are currently working with social work to obtain. 04/11 Patient was seen and examined. No complaints. General: non toxic, no distress, appears at stated age Derm: Warm, dry Head: Atraumatic, normocephalic, symmetric, forehead laceration with sutures, large bruise and laceration to right upper extremity. Eyes: EOMI, no lid lag, anicteric sclera Mouth: No lip lesion, mucus membranes moist Cardiovascular: S1 S2 reg. No murmurs, rubs, gallops Lungs: Decreased BS bilaterally, no accessory muscle use Abdominal: Soft, distended, non tender to palpation Ext: No gross muscle atrophy, no edema, no contractures, mild hand tremors Neuro: No focal neurologic deficits Psych: Alert, oriented, appropriate affect Based on my assessment of this patient, this patient meets a high complexity level of care. Alcohol withdrawal in active alcoholic: CIWA protocol with Ativan PRN. Recurrent witnessed seizure activity: Keppra 500 mg PO BID. Hyperbilirubinemia with elevated transaminase, secondary to daily alcohol abuse Bicytopenia, secondary to daily alcohol abuse Neurocognitive disorder: Patient was evaluated by psychiatrist stating patient DOES NOT have decision-making capacity. Family looking for guardianship. Case management on board. Unwitnessed fall: CT head negative for acute process. PT and OT on board. Fall precautions. Hypothyroidism status post thyroidectomy secondary to thyroid cancer: Synthroid 175 mcg daily. Overt hypothyroidism likely due to medication non compliance. Outpatient follow up in 6 weeks. Hypertension: Amlodipine 5 mg PO QD. Lisinopril 10 mg PO QD. Anxiety: Buspar 10 mg PO BID. Zoloft 200 mg PO QD. Resolved: AL, AG metabolic alkaosis, HypoNa, HypoK, HypoMg Medically stable. Discharge once he has a safe dispo plan. CODE STATUS: FULL CODE DVT Prophylaxis: Lovenox SQ GI Prophylaxis: Designated medical POA if patient is not able to make medical decisions for themselves: I have reviewed the following licensed tax consultant notes: I have reviewed the results of the following tests: I have ordered the following tests: I have discussed the care of this patient with the following independent historian: I have independently interpreted the following test below: I have discussed the management of this patient with the following physician: Objective - Vital Signs Vital signs: Vital Signs Temp 97.6 F 04/11/24 00:48 Pulse 55 L 04/11/24 00:48 Resp 15 04/11/24 00:48 BP 120/79 04/11/24 00:48 Pulse Ox 99 04/11/24 00:48 FiO2 Intake & Output 04/10/24 04/11/24 04/11/24 18:59 06:59 18:59 Intake Total 800 Balance 800 Intake: Intake, IV Titration 800 Amount Sodium Chloride 0.9% 1, 800 000 ml @ 100 mls/hr IV . Q10H [facility] Rx#:[id number] Other: Voiding Method Toilet Toilet Urinal Urinal # Voids 8 # Bowel Movements 1 - Labs CBC & Chem 7: 04/10/24 06:09 04/10/24 06:09 Labs: Abnormal Lab Results - Last 24 Hours (Table) 04/10/24 04/10/24 Range/Units 06:09 06:09 RBC 3.06 L (4.40-5.60) X 10*6/uL Hgb 10.4 L (13.0-17.0) g/dL Hct 31.7 L (39.6-50.0) % MCV 103.6 H (80.0-97.0) FL MCH 34.0 H (27.0-32.0) pg MPV 9.2 L (9.5-12.2) FL BUN 7.7 L (9.0-27.0) mg/dL BUN/Creatinine Ratio 8.56 L (12.00-20.00) Ratio Total Protein 5.2 L (6.2-8.2) g/dL Albumin 3.5 L (3.8-4.9) g/dL
--- NOTE | 2024-04-11 10:58 | P.DS ---
Providers Date of admission: 04/05/24 15:20 Expected date of discharge: 04/11/24 Attending physician: Tj Crane MD Consults: 04/05/24 16:29 Consult Physician Routine Consulting Provider: Pam Gomez Consult Reason/Comments: recurrent seizures suspect ETOH withdrawal (seizure last mon & again today) Do you want consulting provider notified?: Yes 04/09/24 11:17 Consult Physician Routine Consulting Provider: Aleksandr Greer Consult Reason/Comments: please evaluate pt's competency, family attempting to obtain guardianship Do you want consulting provider notified?: Yes Primary care physician: [facility] Course: 63-year-old male with a PMH of anxiety, EtOH abuse drinking a reported 1-2 bottles of wine daily, alcohol withdrawal seizures, HTN, hypothyroidism status post thyroidectomy, TBI with previous brain bleed and anxiety. Patient presented to the emergency department via EMS secondary to reports of witnessed seizure- like activity on his couch lasting approximately 1 minute with complete loss of consciousness. Upon arrival to the hospital, patient underwent evaluation in the emergency department. BP 164/99, HR 104, RR 18, T 98.8 F, and SpO2 of 100% on RA. CBC showing Hg of 12.0 and MCV of 100.1. BMP showing Na 134, K 3.2, chloride of 97, bicarb of 21, and anion gap of 16. BUN of 13, creatinine 1.21, and GFR of 64. Blood glucose 116. Magnesium 1.5. Liver profile showing T. Bili of 2.1 and ALT of 79. Serum alcohol level was less than 10. EKG showing sinus tachycardia at 102 bpm with no significant T wave or ST abnormality. Electrolyte abnormalities replaced in the ED. Patient admitted under our services at this time for medical detox and evaluation of recurrent seizure activity. Neurology consulted. EEG showing negative for epileptiform discharges showing normal routine EEG. MRI brain showing postcraniotomy changes with no evidence of intracranial mass, acute/subacute infarct, or abnormal enhancement with minimal nonspecific white matter changes. Neurologist starting patient on Keppra 500 mg twice daily. Patient was evaluated by psychiatrist stating patient DOES NOT have decision-making capacity with regards to his living situation and care and is unable to reason through and communicate/appreciate the risks, nancy efits, and alternatives to treatment and living/placement options. Patient's mother and father were advised by psychiatrist to proceed with obtaining guardianship of patient for safe placement and parents are currently working with social work to obtain. 04/11 Patient was seen and examined. No complaints. Discussed with Silvia MENSAH, plans for patient to be discharged with the parents. Patient will be living with them for the time being. They will be looking for guardianship and have an appt with a chief deputy sheriff soon. General: non toxic, no distress, appears at stated age Derm: Warm, dry Head: Atraumatic, normocephalic, symmetric, forehead laceration with sutures, large bruise and laceration to right upper extremity. Eyes: EOMI, no lid lag, anicteric sclera Mouth: No lip lesion, mucus membranes moist Cardiovascular: S1 S2 reg. No murmurs, rubs, gallops Lungs: Decreased BS bilaterally, no accessory muscle use Abdominal: Soft, distended, non tender to palpation Ext: No gross muscle atrophy, no edema, no contractures, mild hand tremors Neuro: No focal neurologic deficits Psych: Alert, oriented, appropriate affect Discharge Diagnosis: Alcohol withdrawal in active alcoholic Recurrent witnessed seizure activity Hyperbilirubinemia with elevated transaminase, secondary to daily alcohol abuse Bicytopenia, secondary to daily alcohol abuse Neurocognitive disorder Unwitnessed fall Hypothyroidism status post thyroidectomy secondary to thyroid cancer Hypertension Anxiety Resolved: AL, AG metabolic alkaosis, HypoNa, HypoK, HypoMg This complex discharge took 35 minutes to complete. Patient Condition at Discharge: Stable Plan - Discharge Summary New Discharge Prescriptions: New Acamprosate Calcium [Campral] 666 mg PO BID 30 Days #120 tab Thiamine [Vitamin B-1] 100 mg PO DAILY 30 Days #30 tab levETIRAcetam [Keppra] 500 mg PO Q12HR 30 Days #60 tab Multivitamins, Thera [Multivitamin (formulary)] 1 each PO DAILY 30 Days #30 tab Continue Sertraline HCl [Zoloft] 200 mg PO DAILY Atorvastatin [Lipitor] 20 mg PO HS amLODIPine [Norvasc] 5 mg PO DAILY Levothyroxine Sodium [Synthroid] 175 mcg PO DAILY busPIRone HCl [Buspar] 10 mg PO BID Folic Acid 1 mg PO DAILY 30 Days #30 tab lisinopriL [Zestril] 10 mg PO DAILY hydrOXYzine HCL [Atarax] 25 mg PO Q6H PRN PRN Reason: ANXIETY/SLEEP Zinc Gluconate [Zinc] 50 mg PO DAILY Discharge Medication List Sertraline HCl [Zoloft] 200 mg PO DAILY 05/17/18 [History] Atorvastatin [Lipitor] 20 mg PO HS 07/19/19 [History] Folic Acid 1 mg PO DAILY 30 Days #30 tab 12/21/20 [Rx] Levothyroxine Sodium [Synthroid] 175 mcg PO DAILY 04/05/24 [History] Zinc Gluconate [Zinc] 50 mg PO DAILY 04/05/24 [History] amLODIPine [Norvasc] 5 mg PO DAILY 04/05/24 [History] busPIRone HCl [Buspar] 10 mg PO BID 04/05/24 [History] hydrOXYzine HCL [Atarax] 25 mg PO Q6H PRN 04/05/24 [History] lisinopriL [Zestril] 10 mg PO DAILY 04/05/24 [History] Acamprosate Calcium [Campral] 666 mg PO BID 30 Days #120 tab 04/09/24 [Rx] Multivitamins, Thera [Multivitamin (formulary)] 1 each PO DAILY 30 Days #30 tab 04/09/24 [Rx] Thiamine [Vitamin B-1] 100 mg PO DAILY 30 Days #30 tab 04/09/24 [Rx] levETIRAcetam [Keppra] 500 mg PO Q12HR 30 Days #60 tab 04/09/24 [Rx] Follow up Appointment(s)/Referral(s): [facility] [Outside] - As Needed (CALL FOR RESIDENTIAL SUBSTANCE ABUSE TREATMENT AND SOBER LIVING) eJffrey Savage MD [Primary Care Provider] - 1-2 days Activity/Diet/Wound Care/Special Instructions: Refrain from drinking alcohol. No driving for 6 months until cleared by a Neurologist. Discharge/Stand Alone Forms: AA Meetings [facility], Assisted Living Facilities, Outpatient Counseling, In Substance Abuse Facilities Discharge Disposition: HOME SELF-CARE
[2024-04-11 12:33] VITALS: BP 126/81; PULSE 60; RESP 18; TEMP 97.8
--- NOTE | 2024-04-11 13:06 | CDI ---
Documentation Clarification Form Date: 04/11/2024 12:44:03 PM From: Bushra Mills RN CCDS Phone: [phone] Admit Date: 04/05/2024 03:20:00 PM Patient Name: Zach Santos Visit Number: [id number] Discharge Date: ATTENTION: The Clinical Documentation Specialists (CDI) and [facility] Coding Staff appreciate your assistance in clarifying documentation. Please respond to the clarification below the line at the bottom and electronically sign. The CDI & [facility] Coding staff will review the response and follow-up if needed. Please note: Queries are made part of the Legal Health Record. If you have any questions, please contact the author of this message via ITS. Doctor/Provider: Gerald Domínguez Encephalopathy is documented 04/07 Neurology note. Additional clarification regarding the type of encephalopathy is requested. History/Risk Factors: 63 year old male presents to the ED via EMS with witnessed seizure like activity on his cough lasting approximately one minute with complete loss of consciousness. Family reported that the patient stopped drining a couple of days prior having tremors and shaking from head to toes. Medical history: Hypothyroidism status post thyroidectomy secondary to thyroid cancer. HTN, Anxiety, seizure and right craniotomy. 04/05, hp Clinical Indicators: TSH, 04/05: 51.000 EEG, 04/07: This is a normal routine EEG. There is no focal slowing, epileptiform discharges, or seizure on the EEG.A normal routine EEG does not rule out underlying epilepsy.Clinical correlation is recommended. MRI Brain, 04/07: 1.Postcraniotomy changes.No evidence of intracranial mass, acute/subacute infarct, or abnormal enhancement. 2.Minimal Nonspecific white matter changes, likely related to small vessel ischemic disease. Brain CT, 04/09: 1.Age related atrophic and chronic small vessel ischemic change without acute Intracranial process seen at this time. Neurology note 04/07: Patient has uncontrolled hypothyroidism which is contributing to his encephalopathy Medicine note, 04/11: Hypothyroidism status post thyroidectomy secondary to thyroid cancer. Synthroid 175mcg daily. Overt hypothyroidism likely due to medication noncompliance. Treatment: 04/06 Synthroid 176mcg po 0630 RAF Please clarify the type of encephalopathy, if known: [ ] Metabolic Encephalopathy [ ] Other, please specify [ ] Unable to determine -->Has metabolic encephalopathy (Template Last Revised: September 2020) MTDD
[2024-04-11 13:13] VITALS: BMI 27.1
== END 2024-04-11 13:15 | disposition home or self-care (01) | DRG 896 ==
LOC: EC 14:14 → OBSVTOIN 15:20 → 6NMEDSUR 15:20 → 4SSUR 19:52
PROVIDERS: ADMIT Student in an Organized Health Care Education/Training Program; ATTEND Student in an Organized Health Care Education/Training Program
DX: F10.239 Alcohol dependence with withdrawal, unspecified (principal); G93.41 Metabolic encephalopathy; R17 Unspecified jaundice; E87.1 Hypo-osmolality and hyponatremia; E87.3 Alkalosis; R56.9 Unspecified convulsions; E78.5 Hyperlipidemia, unspecified; F41.9 Anxiety disorder, unspecified; I10 Essential (primary) hypertension; R29.6 Repeated falls; Y90.0 Blood alcohol level of less than 20 mg/100 ml; S41.111A Laceration without foreign body of right upper arm, initial encounter; E89.0 Postprocedural hypothyroidism; E87.6 Hypokalemia; S01.81XA Laceration without foreign body of other part of head, initial encounter; T38.1X6A Underdosing of thyroid hormones and substitutes, initial encounter; D53.9 Nutritional anemia, unspecified; Z91.128 Patient's intentional underdosing of medication regimen for other reason; W08.XXXA Fall from other furniture, initial encounter; Y92.009 Unspecified place in unspecified non-institutional (private) residence as the place of occurrence of the external cause; Z79.82 Long term (current) use of aspirin; Z79.899 Other long term (current) drug therapy; Z79.890 Hormone replacement therapy; Z85.850 Personal history of malignant neoplasm of thyroid; Z86.73 Personal history of transient ischemic attack (TIA), and cerebral infarction without residual deficits
CPT/HCPCS: 36415; 70450; 70553; 73521; 80053; 80306; 80320; 83735; 84439; 84443; 85025; 85027; 93005; 94760; 95816; 96361; 96365; 96366; 96372; 96375; 99285